=== PATIENT | female | born 1955 | race African-American/Black ===

== ENCOUNTER 2017-02-14 12:01 | Inpatient (IN) | payer MEDICARE, OTHER ==
[~2017-02-14] VITALS: Ht 165.1 cm; Wt 77.1 kg
[~2017-02-14 12:01] MED LIST: ALBUTEROL SULF8.5 GM INH; AMLODIPINE-BEN1 EAC1 PO; AMOXICILLIN500 MG ORAL; AZITHROMYCIN250 MG ORAL; CARISOPRODOL350 MG PO; GABAPENTIN600 MG PO; IBUPROFEN600 MG PO; IBUPROFEN800 MG PO; LEVAQUIN750 MG ORAL; LEVOTHYROXINE125 MCG PO; LIPITOR40 MG PO; NORCO 5-325 TA1 EACH ORAL; NORCO 5-325 TA1 EACH PO; OMEPRAZOLE40 M1 ORAL; PERCOCET 5-3251 EACH PO; PROMETHAZINE-C118 M1 ORAL; ULTRAM50 MG PO; ZANTAC150 MG ORAL
[2017-02-14 12:32] VITALS: BP 137/83
[2017-02-14] MEDS: Albuterol ud Inhalation HHN SCH ×3 (12:36→13:09)
[2017-02-14] MEDS: Ipratropium 0.02% Inh Soln 2.5ml UD HHN SCH ×3 (12:36→13:09)
[2017-02-14 12:56] LABS: BASOPHILS % (AUTO) 0.4 % (0.0-2.0); EOSINOPHILS % (AUTO) 0.1 % (0.0-3.0); MEAN CORPUSCULAR VOLUME 88 FL (80-99); MEAN PLATELET VOLUME 6.6 FL (6.5-10.1); MONOCYTES % (AUTO) 5.8 % (1.0-10.0); NEUTROPHILS % (AUTO) 76.6 % (45.0-75.0); PLATELET COUNT 295 K/UL (150-450); RED BLOOD COUNT 5.27 M/UL (4.20-5.40); RED CELL DISTRIBUTION WIDTH 12.6 % (11.6-14.8); WHITE BLOOD COUNT 8.5 K/UL (4.8-10.8)
[2017-02-14 13:02] LABS: ALBUMIN/GLOBULIN RATIO 1.2 (1.0-2.7); CALCIUM 9.2 mg/dL (8.6-10.2); CREATININE 1.2 mg/dL (0.5-0.9); GLOMERULAR FILTRATION RATE 55.6 mL/min (>60); POTASSIUM 4.2 mEQ/L (3.4-4.9); TOTAL PROTEIN 7.8 g/dL (6.6-8.7)
[2017-02-14 13:03] LABS: TROPONIN I < 0.30 ng/mL (<=0.30)
[2017-02-14 13:13] LABS: CKMB 1.8 ng/mL (< 3.8)
[2017-02-14] MEDS ORDERED: Azithromycin 500 MG in D5W 275 ML IVPB STA (13:19)
[2017-02-14 13:30] VITALS: BP 138/89
--- NOTE | 2017-02-14 13:47 | Emergency Room Report ---
History of Present Illness General Chief Complaint: General Complaint Source: Patient Present Illness HPI 61 YO F with productive cough, SOB, wheezing for 2-3 days. + COPD. Non- smoker. Denies fever/chills, chest pain. No improvement with home meds. Also c/o 1 week watery diarrhea, bilateral abd pain without nausea/vomiting. No prior abd surgery or history of diverticulitis. Allergies: Coded Allergies: No Known Allergies (Verified Allergy, Unknown, 09/05/07) Patient History Past Medical History: COPD Past Surgical History: none Pertinent Family History: none Social History: Denies: alcohol use, drug use, smoking Now: No Immunizations: UTD Reviewed Nursing Documentation: PMH: Agreed, PSxH: Agreed Nursing Documentation-PMH Past Medical History: No History, Except For Hx Cardiac Problems: Yes - bypass surgery 2009 Hx Hypertension: Yes Hx Asthma: Yes Hx COPD: Yes Hx Diabetes: No Hx Cancer: No Hx Gastrointestinal Problems: No Hx Neurological Problems: No Review of Systems All Other Systems: negative except mentioned in HPI Physical Exam Vital Signs Date Time Temp Pulse Resp B/P Pulse Ox O2 Delivery O2 Flow Rate FiO2 02/14/17 12:13 98.2 72 18 137/83 90 Room Air Sp02 EP Interpretation: reviewed, normal General Appearance: normal inspection, well appearing, no apparent distress, alert, GCS 15, non-toxic, mild distress Head: normocephalic, atraumatic Eyes: bilateral eye EOMI, bilateral eye PERRL ENT: normal ENT inspection, hearing grossly normal, normal voice Neck: normal inspection, full range of motion, supple, no bony tend Respiratory: normal inspection, lungs clear, normal breath sounds, no respiratory distress, no retraction, no wheezing, accessory muscle use, wheezing Cardiovascular #1: regular rate, rhythm, no edema Gastrointestinal: normal inspection, normal bowel sounds, non tender, soft, no guarding, no hernia Genitourinary: no CVA tenderness Musculoskeletal: normal inspection, back normal, normal range of motion, James' s Sign negative Neurologic: normal inspection, alert, oriented x3, responsive, clinical review specialist III-XII nml as tested, motor strength/tone normal, speech normal Psychiatric: normal inspection, judgement/insight normal, mood/affect normal Skin: normal inspection, normal color, no rash Medical Decision Making Diagnostic Impression: Primary Impression: OVI (acute kidney injury) Additional Impressions: COPD with acute exacerbation Abdominal pain Qualified Codes: R10.84 - Generalized abdominal pain ER Course Labs: No leuks. H&H stable. Mild OVI. Elevated BNP SOB - Likely COPD exacerbation - Improved with duonebs, solumedrol - Blood Cx pending - Empiric Azithro given for COPD Exac. No leuks, fever or PNA on CXR - elevated BNP in setting of OVI likely not indicatory of CHF Abd pain - CT with diverticulosis. Nothing acute. - Lipase and LFTs normal - Patient has not given urine yet Endorsed to Dr Rose for tele admission at 202pm EKG Diagnostic Results Rate: normal, other - atrial enlargement Rhythm: NSR ST Segments: no acute changes ASA given to the pt in ED: No Rhythm Strip Diag. Results EP Interpretation: yes Rate: 61 Rhythm: NSR, no PVC's, no ectopy Chest X-Ray Diagnostic Results EP Interpretation: Yes Findings: no consolidation, no effusion, no pneumothorax, other - clips seen, cardiomegaly Number of Views: 1 Last Vital Signs Date Time Temp Pulse Resp B/P Pulse Ox O2 Delivery O2 Flow Rate FiO2 02/14/17 13:09 72 20 100 Room Air 02/14/17 12:32 137/83 02/14/17 12:13 98.2 Status: improved Disposition: ADMITTED INPATIENT Condition: Serious Referrals: [facility] [place] RISHI CELAYA (PCP) JOSHUA GRANDA M.D. Feb 14, 2017 13:47
[2017-02-14 15:04] VITALS: BP 162/80
[2017-02-14] MEDS ORDERED: Azithromycin Inj IV ONE (15:09)
--- NOTE | 2017-02-14 15:29 | Diagnostic Imaging Report ---
Indication: Dyspnea Comparison: 01/03/16 A single view chest radiograph was obtained. Findings: Central vessels are prominent but there is no overt CHF. Cardiomegaly is present with mild enlargement of the aorta. Sternotomy noted. The bones are osteopenic. Impression: No acute disease
[2017-02-14] MEDS ORDERED: SOMA350 MG PO (15:39)
[2017-02-14] MEDS ORDERED: ASPIRIN EC81 MG ORAL (15:43)
[2017-02-14] MEDS ORDERED: NORCO 10-325 T1 EACH ORAL (15:45)
[2017-02-14] MEDS ORDERED: OMEPRAZOLE20 M2 PO (15:48)
[2017-02-14] MEDS ORDERED: COMBIVENT RESPIM4 GM IH (15:48)
[2017-02-14] MEDS ORDERED: LORazepam Inj 2mg/ml 1ml IV PRN (16:00)
[2017-02-14] MEDS ORDERED: Ketorolac 30mg Inj IV PRN (16:00)
[2017-02-14] MEDS ORDERED: Nitroglycerin Subl 0.4mg tab (Bottle Of 25) SL PRN (16:00)
[2017-02-14] MEDS: Morphine Sulfate 2mg/ml Inj IVP PRN (17:07)
[2017-02-14 17:15] VITALS: BP 125/61
[2017-02-14] MEDS: Piperacillin/Tazobactam 3.375 GM in D5W 110 ML IVPB SCH (18:42)
[2017-02-14] MEDS: Solu-MEDROL 125mg Inj IV SCH (18:43)
[2017-02-14] MEDS: Theophylline ER 100mg ORAL SCH (20:51)
[2017-02-14] MEDS: NovoLOG Insulin Flexpen SUBQ SCH (21:00)
[2017-02-14] MEDS: Heparin 5000 units/ml inj SUBQ SCH (21:00)
--- NOTE | 2017-02-14 22:51 | History and Physical ---
History of Present Illness General Date patient seen: Feb 14, 2017 Reason for Hospitalization: General Complaint Present Illness HPI 61 year old female hx of smoking, htn, presented to [facility] [place] with productive cough, SOB, wheezing for 2-3 days. Denies fever/chills, chest pain. Also c/o 1 week watery diarrhea, bilateral abd pain without nausea/vomiting. CT chest in ER was negative. Pt is admitted for further work up. Allergies: Coded Allergies: No Known Allergies (Verified Allergy, Unknown, 09/05/07) Medication History Scheduled Amlodipine Besylate/Benazepril 10-40 Mg (Amlodipine-Benazepril 10-40 Mg), 1 CAP PO DAILY, (Reported) Aspirin Ec* (Aspirin Ec*), 81 MG ORAL DAILY, (Reported) Atorvastatin Calcium* (Lipitor*), 40 MG PO DAILY, (Reported) Gabapentin* (Gabapentin*), 600 MG PO TID, (Reported) Levothyroxine Sodium* (Levothyroxine Sodium*), 125 MCG PO DAILY, (Reported) Scheduled PRN Albuterol Sulfate* (Albuterol Sulfate Mdi*), 2 PUFF INH Q4H PRN for For Cough Carisoprodol* (Soma*), 350 MG PO TID PRN for PRN, (Reported) Hydrocodone Bit/Acetaminophen 10-325* (Henderson 10-325*), 1 TAB ORAL Q6H PRN for For Pain, (Reported) Ipratropium/Albuterol Sulfate (Combivent Respimat Inhal Bridger), 4 GM IH BID PRN for Shortness of Breath, (Reported) Omeprazole (Omeprazole), 20 MG PO DAILY PRN for GERD, (Reported) Discontinued Medications Codeine/Promethazine Hcl* (Promethazine-Codeine Syrup*), 5 ML ORAL Q4H PRN for For Cough Discontinued Reason: Therapy completed Levofloxacin* (Levaquin*), 750 MG ORAL DAILY Discontinued Reason: Therapy completed Patient History Healthcare decision maker Resuscitation status Full Code Advanced Directive on File Past Medical/Surgical History Past Medical/Surgical History: (1) COPD with acute exacerbation Review of Systems All Other Systems: negative except mentioned in HPI Physical Exam General Appearance: WD/WN Lines, tubes and drains: peripheral, central line HEENT: normocephalic, atraumatic Neck: non-tender, normal alignment Respiratory/Chest: chest wall non-tender, lungs clear Cardiovascular/Chest: normal peripheral pulses, normal rate Abdomen: normal bowel sounds Genitourinary/Rectal: normal genital exam, normal prostate exam Extremities: normal range of motion Skin Exam: normal pigmentation Last 24 Hour Vital Signs Date Time Temp Pulse Resp B/P Pulse Ox O2 Delivery O2 Flow Rate FiO2 02/14/17 20:00 73 02/14/17 17:15 97.7 76 18 125/61 Nasal Cannula 2.0 96 02/14/17 15:04 98.2 104 27 162/80 100 Room Air 02/14/17 13:30 98.0 67 19 138/89 100 Room Air 02/14/17 13:09 72 20 100 Room Air 02/14/17 12:34 63 22 Room Air 02/14/17 12:34 63 22 100 Room Air 02/14/17 12:32 18 137/83 90 Room Air 02/14/17 12:13 98.2 72 18 137/83 90 Room Air Laboratory Tests Test 02/14/17 12:30 White Blood Count 8.5 K/UL (4.8-10.8) Red Blood Count 5.27 M/UL (4.20-5.40) Hemoglobin 15.3 G/DL (12.0-16.0) Hematocrit 46.3 % (37.0-47.0) Mean Corpuscular Volume 88 FL (80-99) Mean Corpuscular Hemoglobin 29.0 PG (27.0-31.0) Mean Corpuscular Hemoglobin Concent 33.0 G/DL (32.0-36.0) Red Cell Distribution Width 12.6 % (11.6-14.8) Platelet Count 295 K/UL (150-450) Mean Platelet Volume 6.6 FL (6.5-10.1) Neutrophils (%) (Auto) 76.6 % (45.0-75.0) H Lymphocytes (%) (Auto) 17.0 % (20.0-45.0) L Monocytes (%) (Auto) 5.8 % (1.0-10.0) Eosinophils (%) (Auto) 0.1 % (0.0-3.0) Basophils (%) (Auto) 0.4 % (0.0-2.0) Sodium Level 131 mEQ/L (135-145) L Potassium Level 4.2 mEQ/L (3.4-4.9) Chloride Level 87 mEQ/L (98-107) L Carbon Dioxide Level 26 mEQ/L (20-30) Anion Gap 18 (5-15) H Blood Urea Nitrogen 6 mg/dL (7-23) L Creatinine 1.2 mg/dL (0.5-0.9) H Estimat Glomerular Filtration Rate 55.6 mL/min (>60) Glucose Level 102 mg/dL (74-106) Calcium Level 9.2 mg/dL (8.6-10.2) Total Bilirubin 0.4 mg/dL (0.0-1.2) Aspartate Amino Transf (AST/SGOT) 16 U/L (5-40) Alanine Aminotransferase (ALT/SGPT) 8 U/L (3-33) Alkaline Phosphatase 75 U/L (35-104) Total Creatine Kinase 79 U/L (26-140) Creatine Kinase MB 1.8 ng/mL (< 3.8) Creatine Kinase MB Relative Index 2.2 Troponin I < 0.30 ng/mL (<=0.30) Pro-B-Type Natriuretic Peptide 2046 pg/mL (0-125) H Total Protein 7.8 g/dL (6.6-8.7) Albumin 4.4 g/dL (3.5-5.2) Globulin 3.4 g/dL Albumin/Globulin Ratio 1.2 (1.0-2.7) Height (Feet): 5 Height (Inches): 5.00 Weight (Pounds): 170 Medications Current Medications Medications (Trade) Dose Ordered Sig/Jose Route PRN Reason Start Time Stop Time Status Last Admin Dose Admin Albuterol/ Ipratropium (DuoNeb 0.5-3(2.5)mg/3ml) 3 ml EVERY 4 HOURS PRN HHN dyspnea 02/14/17 16:00 02/19/17 15:59 Atorvastatin Calcium (Lipitor) 40 mg QHS ORAL 02/14/17 21:00 03/16/17 20:59 02/14/17 20:51 Dextrose (Dextrose 50%) STAT PRN IV Hypoglycemia 02/14/17 16:00 03/16/17 15:59 Gabapentin (Neurontin) 600 mg TID ORAL 02/14/17 18:00 03/16/17 17:59 02/14/17 18:43 Heparin Sodium (Porcine) (Heparin 5000 units/ml) 5,000 units EVERY 12 HOURS SUBQ 02/14/17 21:00 03/16/17 20:59 02/14/17 21:00 Insulin Aspart (NovoLOG) BEFORE MEALS AND HS SUBQ 02/14/17 21:00 03/16/17 20:59 Ketorolac Tromethamine (Toradol 30mg) 30 mg EVERY 8 HOURS PRN IV moderate pain 4-6 02/14/17 16:00 02/19/17 15:59 Levothyroxine Sodium (Synthroid) 125 mcg DAILY@0630 ORAL 02/15/17 06:30 03/17/17 06:29 Lorazepam (Ativan 2mg/ml 1ml) 0.5 mg Q4H PRN IV For Anxiety 02/14/17 16:00 02/21/17 15:59 Methylprednisolone Sodium Succinate (Solu-MEDROL) 60 mg EVERY 6 HOURS IV 02/14/17 18:00 03/16/17 17:59 02/14/17 18:43 Morphine Sulfate (Morphine Sulfate) 2 mg EVERY 4 HOURS PRN IVP severe pain 7-10 02/14/17 16:00 02/21/17 15:59 02/14/17 17:07 Nitroglycerin (Ntg) 0.4 mg Q5M X 3 DOSES PRN SL Prn Chest Pain 02/14/17 16:00 03/16/17 15:59 Ondansetron HCl (Zofran) 4 mg Q6H PRN IVP Nausea & Vomiting 02/14/17 16:00 03/16/17 15:59 Pantoprazole (Protonix) 40 mg DAILY IV 02/15/17 09:00 03/17/17 08:59 Piperacillin Sod/ Tazobactam Sod/ Dextrose (Zosyn/D5W) 110 ml @ 27.5 mls/hr EVERY 8 HOURS IVPB 02/14/17 19:00 02/21/17 18:59 02/14/17 18:42 Promethazine HCl/ Codeine (Phenergan with Codeine) 5 ml EVERY 6 HOURS PRN ORAL cough 02/14/17 16:00 03/16/17 15:59 Temazepam (Restoril) 15 mg HSPRN PRN ORAL Insomnia 02/14/17 16:00 02/21/17 15:59 Theophylline 100 mg 100 mg EVERY 12 HOURS ORAL 02/14/17 21:00 03/16/17 20:59 02/14/17 20:51 Assessment/Plan Problem List: (1) COPD with acute exacerbation ICD Codes: J44.1 - Chronic obstructive pulmonary disease with (acute) exacerbation SNOMED: 489664203 (2) Bronchitis ICD Codes: J40 - Bronchitis, not specified as acute or chronic SNOMED: 76103799 (3) Abdominal pain ICD Codes: R10.9 - Unspecified abdominal pain SNOMED: 56778396 Qualifiers: Qualified Codes: R10.84 - Generalized abdominal pain Assessment/Plan respiratory treatment IV steroids check sputum taper steroids once less short of breath continue antibiotics MAIRA JAY Feb 14, 2017 22:51
[2017-02-15] VITALS: BP 133/104
[2017-02-15] MEDS: Solu-MEDROL 125mg Inj IV SCH ×4 (00:12→17:44)
[2017-02-15] MEDS: Morphine Sulfate 2mg/ml Inj IVP PRN ×4 (00:13→14:46)
[2017-02-15] MEDS: DuoNeb 0.5-3(2.5)mg/3ml neb HHN PRN ×2 (01:23→10:52)
[2017-02-15 04:23] VITALS: BP 138/75
[2017-02-15] MEDS: Piperacillin/Tazobactam 3.375 GM in D5W 110 ML IVPB SCH ×3 (05:38→21:57)
[2017-02-15] MEDS: Levothyroxine 125mcg tab ORAL SCH (06:51)
[2017-02-15] MEDS: NovoLOG Insulin Flexpen SUBQ SCH ×4 (06:52→20:51)
[2017-02-15] MEDS: Promethazine/Codeine 5ml UD ORAL PRN ×2 (06:54→14:47)
[2017-02-15 07:59] VITALS: BP 137/88
--- NOTE | 2017-02-15 08:27 | Diagnostic Imaging Report ---
Indication: Abdominal pain Technique: Continuous helical transaxial imaging of the abdomen and pelvis was obtained from the lung bases to the pubic symphysis during intravenous contrast administration. Coronal 2-D reformats were also obtained. Study obtained in a Siemens sensation [address] Total Dose length Product (DLP): [address] Dose Index Volume (CTDIvol): 17 mGy Comparison: 09/06/2007 Findings: Mild, focal reticular densities are demonstrated at the periphery of the right lung base nonspecific. Hiatal hernia is present. Aorta is moderately calcified. There are diverticula within the colon. Gallbladder is unremarkable. The adrenal glands, pancreas and kidneys are unremarkable. There is no hydronephrosis. Liver and spleen unremarkable. Appendix not definitely seen but there are no secondary signs of appendicitis. Fusiform aneurysms of the common iliac arteries are demonstrated bilaterally measuring 3.3 CM on the left and about 2.6 CM on the right. Moderate wall adherent thrombus noted. There is an old right pubis fracture. There is anterolisthesis grade 1 L4-5 with narrowed disc. Impression: No acute findings appreciated. Fusiform aneurysms involving the common iliac arteries bilaterally. Moderate atherosclerotic vascular disease Old right pubis fracture. Grade 1 spondylolisthesis L4 on 5 with degenerative disc disease noted. Reticular densities at the right lung base nonspecific Hiatal hernia Diverticulosis of the colon The CT scanner at [facility] is accredited by the [employer] and the scans are performed using protocols designed to limit radiation exposure to as low as reasonably achievable to attain images of sufficient resolution adequate for diagnostic evaluation.
[2017-02-15] MEDS: Theophylline ER 100mg ORAL SCH ×2 (09:17→20:49)
[2017-02-15] MEDS: Pantoprazole Inj IV SCH (09:17)
[2017-02-15] MEDS: Heparin 5000 units/ml inj SUBQ SCH ×2 (09:18→20:51)
[2017-02-15 11:30] VITALS: BP 150/91
--- NOTE | 2017-02-15 15:36 | Pulmonology Progress Note ---
Assessment/Plan Problems: (1) COPD with acute exacerbation (2) Bronchitis (3) Abdominal pain Assessment/Plan improving respiratory treatment titrate fio2 antitussives abdominal pain better Subjective ROS Limited/Unobtainable: No Interval Events: still coughing Allergies: Coded Allergies: No Known Allergies (Verified Allergy, Unknown, 09/05/07) Objective Last 24 Hour Vital Signs Date Time Temp Pulse Resp B/P Pulse Ox O2 Delivery O2 Flow Rate FiO2 02/15/17 12:00 67 02/15/17 11:30 98.6 81 18 150/91 94 Nasal Cannula 2.0 02/15/17 11:30 84 20 97 Nasal Cannula 2.0 02/15/17 11:26 84 18 96 Nasal Cannula 2.0 02/15/17 09:55 75 20 100 Nasal Cannula 2.0 28 02/15/17 09:45 74 18 99 Nasal Cannula 2.0 02/15/17 08:00 82 02/15/17 07:59 98.2 64 18 137/88 93 Nasal Cannula 2.0 02/15/17 07:26 77 18 Nasal Cannula 2.0 02/15/17 07:24 Nasal Cannula 2.0 02/15/17 07:23 77 18 97 Nasal Cannula 2.0 02/15/17 06:05 97.8 02/15/17 04:23 97.8 79 18 138/75 97 Nasal Cannula 02/15/17 04:00 81 02/15/17 03:17 80 21 100 Nasal Cannula 2.0 28 02/15/17 03:17 80 21 100 Nasal Cannula 2.0 28 02/15/17 02:00 80 21 100 Nasal Cannula 2.0 28 02/15/17 01:25 80 21 100 Nasal Cannula 2.0 28 02/15/17 00:00 76 02/15/17 00:00 97.9 91 20 133/104 95 Nasal Cannula 2.0 28 02/14/17 20:00 73 02/14/17 19:00 59 21 Nasal Cannula 2.0 28 02/14/17 17:15 97.7 76 18 125/61 Nasal Cannula 2.0 96 Intake and Output 02/14/17 02/15/17 19:00 07:00 Intake Total 0 ml Balance 0 ml Intake Oral 0 ml # Voids 1 # Bowel Movements 2 Objective General Appearance: WD/WN Lines, tubes and drains: peripheral, HEENT: normocephalic, atraumatic Neck: non-tender, normal alignment Respiratory/Chest: chest wall non-tender, rhonchi Cardiovascular/Chest: normal peripheral pulses, normal rate Abdomen: normal bowel sounds Genitourinary/Rectal: normal genital exam, normal prostate exam Extremities: normal range of motion Skin Exam: normal pigmentation Current Medications Medications (Trade) Dose Ordered Sig/Jose Route PRN Reason Start Time Stop Time Status Last Admin Dose Admin Albuterol/ Ipratropium (DuoNeb 0.5-3(2.5)mg/3ml) 3 ml EVERY 4 HOURS PRN HHN dyspnea 02/14/17 16:00 02/19/17 15:59 02/15/17 10:52 Atorvastatin Calcium (Lipitor) 40 mg QHS ORAL 02/14/17 21:00 03/16/17 20:59 02/14/17 20:51 Dextrose (Dextrose 50%) STAT PRN IV Hypoglycemia 02/14/17 16:00 03/16/17 15:59 Gabapentin (Neurontin) 600 mg TID ORAL 02/14/17 18:00 03/16/17 17:59 02/15/17 12:12 Heparin Sodium (Porcine) (Heparin 5000 units/ml) 5,000 units EVERY 12 HOURS SUBQ 02/14/17 21:00 03/16/17 20:59 02/15/17 09:18 Insulin Aspart (NovoLOG) BEFORE MEALS AND HS SUBQ 02/14/17 21:00 03/16/17 20:59 02/15/17 12:13 Ketorolac Tromethamine (Toradol 30mg) 30 mg EVERY 8 HOURS PRN IV moderate pain 4-6 02/14/17 16:00 02/19/17 15:59 Levothyroxine Sodium (Synthroid) 125 mcg DAILY@0630 ORAL 02/15/17 06:30 03/17/17 06:29 02/15/17 06:51 Lorazepam (Ativan 2mg/ml 1ml) 0.5 mg Q4H PRN IV For Anxiety 02/14/17 16:00 02/21/17 15:59 Methylprednisolone Sodium Succinate (Solu-MEDROL) 60 mg EVERY 6 HOURS IV 02/14/17 18:00 03/16/17 17:59 02/15/17 12:12 Morphine Sulfate (Morphine Sulfate) 2 mg EVERY 4 HOURS PRN IVP severe pain 7-10 02/14/17 16:00 02/21/17 15:59 02/15/17 14:46 Nitroglycerin (Ntg) 0.4 mg Q5M X 3 DOSES PRN SL Prn Chest Pain 02/14/17 16:00 03/16/17 15:59 Ondansetron HCl (Zofran) 4 mg Q6H PRN IVP Nausea & Vomiting 02/14/17 16:00 03/16/17 15:59 Pantoprazole (Protonix) 40 mg DAILY IV 02/15/17 09:00 03/17/17 08:59 02/15/17 09:17 Piperacillin Sod/ Tazobactam Sod/ Dextrose (Zosyn/D5W) 110 ml @ 27.5 mls/hr EVERY 8 HOURS IVPB 02/14/17 19:00 02/21/17 18:59 02/15/17 13:18 Promethazine HCl/ Codeine (Phenergan with Codeine) 5 ml EVERY 6 HOURS PRN ORAL cough 02/14/17 16:00 03/16/17 15:59 02/15/17 14:47 Temazepam (Restoril) 15 mg HSPRN PRN ORAL Insomnia 02/14/17 16:00 02/21/17 15:59 Theophylline 100 mg 100 mg EVERY 12 HOURS ORAL 02/14/17 21:00 03/16/17 20:59 02/15/17 09:17 MAIRA JAY Feb 15, 2017 15:36
[2017-02-15 16:00] VITALS: BP 135/77
--- NOTE | 2017-02-15 16:40 | Cardiology Progress Note ---
Assessment/Plan Assessment/Plan copd abn ekg cad hs htn hx contienu copd rxn repeat enxzyen ekg echo statin acotrin [id number] Objective Last 24 Hour Vital Signs Date Time Temp Pulse Resp B/P Pulse Ox O2 Delivery O2 Flow Rate FiO2 02/15/17 12:00 67 02/15/17 11:30 98.6 81 18 150/91 94 Nasal Cannula 2.0 02/15/17 11:30 84 20 97 Nasal Cannula 2.0 02/15/17 11:26 84 18 96 Nasal Cannula 2.0 02/15/17 09:55 75 20 100 Nasal Cannula 2.0 28 02/15/17 09:45 74 18 99 Nasal Cannula 2.0 02/15/17 08:00 82 02/15/17 07:59 98.2 64 18 137/88 93 Nasal Cannula 2.0 02/15/17 07:26 77 18 Nasal Cannula 2.0 02/15/17 07:24 Nasal Cannula 2.0 02/15/17 07:23 77 18 97 Nasal Cannula 2.0 02/15/17 06:05 97.8 02/15/17 04:23 97.8 79 18 138/75 97 Nasal Cannula 02/15/17 04:00 81 02/15/17 03:17 80 21 100 Nasal Cannula 2.0 28 02/15/17 03:17 80 21 100 Nasal Cannula 2.0 28 02/15/17 02:00 80 21 100 Nasal Cannula 2.0 28 02/15/17 01:25 80 21 100 Nasal Cannula 2.0 28 02/15/17 00:00 76 02/15/17 00:00 97.9 91 20 133/104 95 Nasal Cannula 2.0 28 02/14/17 20:00 73 02/14/17 19:00 59 21 Nasal Cannula 2.0 28 02/14/17 17:15 97.7 76 18 125/61 Nasal Cannula 2.0 96 Intake and Output 02/14/17 02/15/17 19:00 07:00 Intake Total 0 ml Balance 0 ml Intake Oral 0 ml # Voids 1 # Bowel Movements 2 CARLY CLANCY Feb 15, 2017 16:40
[2017-02-15] MEDS: Aspirin EC 81mg tab ORAL SCH (17:42)
[2017-02-15] MEDS ORDERED: NS 275ml ONE (18:20)
[2017-02-15 18:28] LABS: TROPONIN I < 0.30 ng/mL (<=0.30)
[2017-02-15 18:38] LABS: THYROID STIMULATING HORMONE 0.01 uIU/mL (0.300-4.500)
[2017-02-15 20:00] VITALS: BP 132/71
--- NOTE | 2017-02-15 23:48 | Consultation ---
DATE OF CONSULTATION: 02/15/2017 CARDIOLOGY CONSULTATION CONSULTING PHYSICIAN: Brian Aguayo M.D. REFERRING PHYSICIAN: Amol Rose M.D. REASON FOR REFERRAL: Shortness of breath. HISTORY OF PRESENT ILLNESS: This is a middle-aged female, who is admitted to the hospital because of a dry cough, congestion, and shortness of breath. No fevers. No chills. Wheezing, two-pillow orthopnea, episodes of PND, pain in the chest when she takes a deep breath or coughs, and pain in the flank when she coughs. Occasional palpitation. Occasional dizziness or lightheadedness. PAST MEDICAL HISTORY: Positive for prediabetes, although she has been given insulin in this hospital, high blood pressure, high cholesterol, history of myocardial infarction in 2003 when she had a bypass surgery x3, history of renal insufficiency early stage, chronic obstructive pulmonary disease, anemia, and arthritis. ALLERGIES: She has no known drug allergies. SOCIAL HISTORY: Smoking, positive up to yesterday. Alcohol, no. Drugs, no. REVIEW OF SYSTEMS: Gastrointestinal: She had diarrhea until today. Genitourinary: , otherwise negative. Constitutional: Negative. Pulmonary: As mentioned in the history of present illness. Cardiac: PHYSICAL EXAMINATION: GENERAL: Shows to be obese middle-aged female, in no apparent respiratory distress. HEENT: Unremarkable. She has intermittent coughing. LUNGS: There are inspiratory and expiratory wheezes. CARDIAC: Regular rhythm. No RV lift, heaves, or thrills noted. ABDOMEN: Obese. Soft and nontender. Positive bowel sounds. EXTREMITIES: There is no edema. NEUROLOGICAL: She is awake, alert, responsive, and in no apparent respiratory distress. LABORATORY VALUES: Her white count is 8.5, hemoglobin 15.3, and platelet count 295,000. Sodium is 131, potassium 4.2, chloride 87, bicarbonate 18, BUN 6, creatinine 1.2, and glucose of 102. ProBNP of 2000. Troponin, first set is negative. X-ray of the chest was performed yesterday and showed no acute disease. A CT scan of the abdomen and pelvis was performed, basically shows a fusiform aneurysm involving the common iliac arteries bilaterally, moderate thoracic vascular disease, old right pubic ramus fracture, reticular density in the right lung base, nonspecific, hiatal hernia, and diverticulosis of the colon. The patient's electrocardiogram shows basically sinus rhythm with T-wave inversions in V1, V2, and V3, and nonspecific changes in lead aVF. ASSESSMENT: 1. Probable chronic obstructive pulmonary disease with exacerbation. 2. Abnormal electrocardiogram, unknown chronicity. 3. Coronary artery disease status post coronary artery bypass grafting. 4. 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 5. Obesity. 6. Hyperlipidemia. PLAN: Dr. Rose, this patient was seen in cardiac consultation. The patient's major issue is likely the COPD exacerbation. Changes on CT scan in the right lung base is noted and felt to be nonspecific. She does have wheezing and evidence of chronic obstructive pulmonary disease exacerbation. Her EKG is abnormal, chronicity of which is not known. I would recommend repeating cardiac enzymes and an echocardiogram evaluation for LV systolic function. I will continue treatment for underlying chronic obstructive pulmonary disease exacerbation as well as possible either pneumonia or underlying viral infection. Further recommendations will depend on results of the above testing. Thank you for allowing me to participate in the care of this patient. Brian Aguayo M.D. DR: PATRICIA JOB#: [id number] CC:
[2017-02-16] VITALS: BP 147/77
[2017-02-16] MEDS: Solu-MEDROL 125mg Inj IV SCH ×4 (00:39→21:06)
[2017-02-16 02:00] LABS: TROPONIN I < 0.30 ng/mL (<=0.30)
[2017-02-16] MEDS: Promethazine/Codeine 5ml UD ORAL PRN (03:56)
[2017-02-16 04:00] VITALS: BP 126/77
[2017-02-16] MEDS: Morphine Sulfate 2mg/ml Inj IVP PRN ×3 (05:02→16:07)
[2017-02-16] MEDS: Levothyroxine 125mcg tab ORAL SCH (06:08)
[2017-02-16] MEDS: Piperacillin/Tazobactam 3.375 GM in D5W 110 ML IVPB SCH ×3 (06:09→21:07)
[2017-02-16] MEDS: NovoLOG Insulin Flexpen SUBQ SCH ×4 (06:10→21:13)
[2017-02-16 07:02] LABS: APPEARANCE,URINE CLEAR; KETONES,URINE NEGATIVE (NEGATIVE); LEUKOCYTE ESTERASE ,URINE 1+ (NEGATIVE); NITRITE,URINE NEGATIVE (NEGATIVE); PH,URINE 5 (4.5-8.0); PROTEIN,URINE 2+ (NEGATIVE); UROBILINOGEN,URINE NORMAL MG/DL (0.0-1.0)
[2017-02-16 07:13] LABS: RBC,URINE 0-2 /HPF (0 - 2); SQUAMOUS EPITHELIAL CELL,UR FEW /LPF (NONE/OCC)
[2017-02-16 07:14] LABS: BACTERIA,URINE FEW /HPF
[2017-02-16 08:22] VITALS: BP 151/87
[2017-02-16] MEDS: Aspirin EC 81mg tab ORAL SCH (09:06)
[2017-02-16] MEDS: Theophylline ER 100mg ORAL SCH ×2 (09:06→21:06)
[2017-02-16] MEDS: Heparin 5000 units/ml inj SUBQ SCH ×2 (09:09→21:15)
[2017-02-16] MEDS: Pantoprazole Inj IV SCH (09:09)
[2017-02-16 10:40] LABS: CORTISOL LC 18.1 ug/dL (.)
[2017-02-16 11:24] VITALS: BP 137/81
[2017-02-16 11:43] LABS: MEAN CORPUSCULAR HEMOGLOBIN 28.5 PG (27.0-31.0); MEAN CORPUSCULAR HGB CONC 32.5 G/DL (32.0-36.0); MEAN CORPUSCULAR VOLUME 88 FL (80-99); MEAN PLATELET VOLUME 6.8 FL (6.5-10.1); PLATELET COUNT 327 K/UL (150-450); RED BLOOD COUNT 4.88 M/UL (4.20-5.40); RED CELL DISTRIBUTION WIDTH 12.6 % (11.6-14.8); WHITE BLOOD COUNT 10.2 K/UL (4.8-10.8)
[2017-02-16] MEDS: Loperamide 2mg cap ORAL PRN ×2 (12:00→21:07)
[2017-02-16 12:14] LABS: ALBUMIN/GLOBULIN RATIO 1.6 (1.0-2.7); CALCIUM 8.4 mg/dL (8.6-10.2); CREATININE 2.1 mg/dL (0.5-0.9); GLOMERULAR FILTRATION RATE 29.1 mL/min (>60); MAGNESIUM 2.2 mg/dL (1.7-2.5); PHOSPHORUS 4.5 mg/dL (2.5-4.8); POTASSIUM 4.7 mEQ/L (3.4-4.9); TOTAL PROTEIN 6.4 g/dL (6.6-8.7); TROPONIN I < 0.30 ng/mL (<=0.30)
[2017-02-16 12:49] LABS: BAND NEUTROPHILS % (MANUAL) 1 % (0-8); LYMPHOCYTES % (MANUAL) 7 % (20-45); NEUTROPHILS % (MANUAL) 88 % (45-75); TOTAL CELLS COUNTED 100
[2017-02-16 12:50] LABS: PLATELET MORPHOLOGY NORMAL
[2017-02-16 12:51] LABS: BASOPHILS % (MANUAL) 0 % (0-2); EOSINOPHILS % (MANUAL) 0 % (0-3); PLATELET ESTIMATE ADEQUATE
[2017-02-16 16:00] VITALS: BP 139/80
--- NOTE | 2017-02-16 16:04 | Pulmonology Progress Note ---
Assessment/Plan Problems: (1) COPD with acute exacerbation (2) Bronchitis (3) Abdominal pain Assessment/Plan improving slowly taper steroids sputum negative respiratory treatment titrate fio2 antitussives abdominal pain better/ GI consult Subjective ROS Limited/Unobtainable: No Interval Events: comfortable, still dyspnic, Allergies: Coded Allergies: No Known Allergies (Verified Allergy, Unknown, 09/05/07) Objective Last 24 Hour Vital Signs Date Time Temp Pulse Resp B/P Pulse Ox O2 Delivery O2 Flow Rate FiO2 02/16/17 15:05 Nasal Cannula 02/16/17 15:05 Nasal Cannula 2.0 28 02/16/17 12:00 68 02/16/17 11:24 98.1 69 20 137/81 94 Nasal Cannula 2.0 02/16/17 11:09 Nasal Cannula 2.0 28 02/16/17 11:09 Nasal Cannula 02/16/17 08:22 98.2 63 20 151/87 94 Nasal Cannula 2.0 02/16/17 08:00 69 02/16/17 07:11 66 19 Nasal Cannula 2.0 28 02/16/17 07:11 66 18 98 Nasal Cannula 2.0 28 02/16/17 07:11 Nasal Cannula 02/16/17 04:00 60 02/16/17 04:00 98.1 64 20 126/77 94 Room Air 02/16/17 03:13 Nasal Cannula 02/16/17 03:13 Nasal Cannula 2.0 28 02/16/17 00:00 97.3 77 20 147/77 98 Room Air 02/15/17 22:45 Nasal Cannula 02/15/17 22:44 Nasal Cannula 2.0 28 02/15/17 20:00 97.9 84 18 132/71 Nasal Cannula 2.0 97 02/15/17 20:00 82 02/15/17 19:59 Nasal Cannula 02/15/17 19:58 70 18 99 Nasal Cannula 2.0 28 02/15/17 19:57 70 18 Nasal Cannula 2.0 28 Intake and Output 02/15/17 02/16/17 19:00 07:00 Intake Total 772.5 ml 82.5 ml Output Total 350 ml Balance 772.5 ml -267.5 ml Intake Oral 580 ml IV Total 192.5 ml 82.5 ml Output Urine Total 350 ml # Voids 1 # Bowel Movements 3 1 Objective General Appearance: WD/WN Lines, tubes and drains: peripheral, HEENT: normocephalic, atraumatic Neck: non-tender, normal alignment Respiratory/Chest: chest wall non-tender, rhonchi Cardiovascular/Chest: normal peripheral pulses, normal rate Abdomen: normal bowel sounds Genitourinary/Rectal: normal genital exam, normal prostate exam Extremities: normal range of motion Skin Exam: normal pigmentation Microbiology Date/Time Source Procedure Growth Status 02/15/17 01:00 Sputum Gram Stain - Final Resulted 02/15/17 01:00 Sputum Sputum Culture - Preliminary NORMAL MNIAL PRESENT Resulted 02/15/17 20:16 Stool Clostridium difficile Toxin Assay - Final Complete Laboratory Tests 02/15/17 17:50: Plasma/Serum Osmolality [Pending], Uric Acid 8.0H, Troponin I < 0.30, Thyroid Stimulating Hormone (TSH) 0.010L, Free Thyroxine 2.01H, Cortisol 18.1 02/16/17 00:00: Urine Color Yellow, Urine Appearance Clear, Urine pH 5, Urine Specific [place] 1.010, Urine Protein 2+H, Urine Glucose (UA) Negative, Urine Ketones Negative, Urine Occult Blood Negative, Urine Nitrite Negative, Urine Bilirubin Negative, Urine Urobilinogen Normal, Urine Leukocyte Esterase 1+H, Urine RBC 0-2, Urine WBC 2-4, Urine Squamous Epithelial Cells Few, Urine Bacteria Few, Urine Osmolality [Pending], Urine Random Sodium 15 02/16/17 00:39: Troponin I < 0.30 02/16/17 10:59: Troponin I < 0.30, White Blood Count 10.2, Red Blood Count 4.88, Hemoglobin 13.9 , Hematocrit 42.8, Mean Corpuscular Volume 88, Mean Corpuscular Hemoglobin 28.5 , Mean Corpuscular Hemoglobin Concent 32.5, Red Cell Distribution Width 12.6, Platelet Count 327, Mean Platelet Volume 6.8, Neutrophils (%) (Auto) , Lymphocytes (%) (Auto) , Monocytes (%) (Auto) , Eosinophils (%) (Auto) , Basophils (%) (Auto) , Differential Total Cells Counted 100, Neutrophils % ( Manual) 88H, Lymphocytes % (Manual) 7L, Monocytes % (Manual) 4, Eosinophils % ( Manual) 0, Basophils % (Manual) 0, Band Neutrophils 1, Platelet Estimate Adequate, Platelet Morphology Normal, Red Blood Cell Morphology Normal, Sodium Level 136, Potassium Level 4.7, Chloride Level 93L, Carbon Dioxide Level 23, Anion Gap 20H, Blood Urea Nitrogen 27H, Creatinine 2.1H, Estimat Glomerular Filtration Rate 29.1, Glucose Level 133H, Calcium Level 8.4L, Phosphorus Level 4.5, Magnesium Level 2.2, Total Bilirubin 0.3, Aspartate Amino Transf (AST/SGOT ) 11, Alanine Aminotransferase (ALT/SGPT) 7, Alkaline Phosphatase 59, Total Protein 6.4L, Albumin 4.0, Globulin 2.4, Albumin/Globulin Ratio 1.6 Current Medications Medications (Trade) Dose Ordered Sig/Jose Route PRN Reason Start Time Stop Time Status Last Admin Dose Admin Albuterol/ Ipratropium (DuoNeb 0.5-3(2.5)mg/3ml) 3 ml EVERY 4 HOURS PRN HHN dyspnea 02/14/17 16:00 02/19/17 15:59 02/15/17 10:52 Aspirin (Ecotrin) 81 mg DAILY ORAL 02/15/17 17:00 03/17/17 16:59 02/16/17 09:06 Atorvastatin Calcium (Lipitor) 40 mg QHS ORAL 02/14/17 21:00 03/16/17 20:59 02/15/17 20:49 Dextrose (Dextrose 50%) STAT PRN IV Hypoglycemia 02/14/17 16:00 03/16/17 15:59 Gabapentin (Neurontin) 600 mg TID ORAL 02/14/17 18:00 03/16/17 17:59 02/16/17 13:40 Heparin Sodium (Porcine) (Heparin 5000 units/ml) 5,000 units EVERY 12 HOURS SUBQ 02/14/17 21:00 03/16/17 20:59 02/16/17 09:09 Insulin Aspart (NovoLOG) BEFORE MEALS AND HS SUBQ 02/14/17 21:00 03/16/17 20:59 02/16/17 12:01 Ketorolac Tromethamine (Toradol 30mg) 30 mg EVERY 8 HOURS PRN IV moderate pain 4-6 02/14/17 16:00 02/19/17 15:59 02/15/17 20:35 Levothyroxine Sodium (Synthroid) 125 mcg DAILY@0630 ORAL 02/15/17 06:30 03/17/17 06:29 02/16/17 06:08 Loperamide HCl (Imodium) 2 mg Q4H PRN ORAL Diarrhea 02/16/17 11:00 03/18/17 10:59 02/16/17 12:00 Lorazepam (Ativan 2mg/ml 1ml) 0.5 mg Q4H PRN IV For Anxiety 02/14/17 16:00 02/21/17 15:59 Methylprednisolone Sodium Succinate (Solu-MEDROL) 60 mg EVERY 6 HOURS IV 02/14/17 18:00 03/16/17 17:59 02/16/17 12:00 Morphine Sulfate (Morphine Sulfate) 2 mg EVERY 4 HOURS PRN IVP severe pain 7-10 02/14/17 16:00 02/21/17 15:59 02/16/17 09:19 Nitroglycerin (Ntg) 0.4 mg Q5M X 3 DOSES PRN SL Prn Chest Pain 02/14/17 16:00 03/16/17 15:59 Ondansetron HCl (Zofran) 4 mg Q6H PRN IVP Nausea & Vomiting 02/14/17 16:00 03/16/17 15:59 Pantoprazole (Protonix) 40 mg DAILY IV 02/15/17 09:00 03/17/17 08:59 02/16/17 09:09 Piperacillin Sod/ Tazobactam Sod/ Dextrose (Zosyn/D5W) 110 ml @ 27.5 mls/hr EVERY 8 HOURS IVPB 02/14/17 19:00 02/21/17 18:59 02/16/17 13:40 Promethazine HCl/ Codeine (Phenergan with Codeine) 5 ml EVERY 6 HOURS PRN ORAL cough 02/14/17 16:00 03/16/17 15:59 02/16/17 03:56 Temazepam (Restoril) 15 mg HSPRN PRN ORAL Insomnia 02/14/17 16:00 02/21/17 15:59 Theophylline 100 mg 100 mg EVERY 12 HOURS ORAL 02/14/17 21:00 03/16/17 20:59 02/16/17 09:06 MAIRA JAY Feb 16, 2017 16:04
[2017-02-16 19:00] VITALS: BP 120/72
[2017-02-16] MEDS: DuoNeb 0.5-3(2.5)mg/3ml neb HHN PRN (19:22)
--- NOTE | 2017-02-16 20:00 | Cardiology Progress Note ---
Assessment/Plan Assessment/Plan 1. Probable chronic obstructive pulmonary disease with exacerbation. 2. Abnormal electrocardiogram, unknown chronicity. 3. Coronary artery disease status post coronary artery bypass grafting. 4. 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 5. Obesity. 6. Hyperlipidemia 7. Renal insuf seem better overall however still wheezing all trop neg echo normla [place] ekg changes may be old tele sinus new elevated cr to repeat level in am Subjective Cardiovascular: Denies: chest pain, irregular heart rate, lightheadedness Respiratory: Reports: shortness of breath Gastrointestinal/Abdominal: Denies: abdominal pain Genitourinary: Denies: burning Objective Last 24 Hour Vital Signs Date Time Temp Pulse Resp B/P Pulse Ox O2 Delivery O2 Flow Rate FiO2 02/16/17 19:32 83 18 98 Nasal Cannula 2.0 28 02/16/17 19:31 83 18 98 Nasal Cannula 2.0 28 02/16/17 19:24 68 18 96 Nasal Cannula 2.0 28 02/16/17 19:23 68 18 96 Nasal Cannula 2.0 28 02/16/17 19:23 68 18 Nasal Cannula 2.0 28 02/16/17 18:45 98.1 02/16/17 16:50 98.1 02/16/17 16:10 63 02/16/17 16:00 98.2 68 20 139/80 94 Nasal Cannula 2.0 02/16/17 15:05 Nasal Cannula 02/16/17 15:05 Nasal Cannula 2.0 28 02/16/17 12:00 68 02/16/17 11:24 98.1 69 20 137/81 94 Nasal Cannula 2.0 02/16/17 11:09 Nasal Cannula 2.0 28 02/16/17 11:09 Nasal Cannula 02/16/17 08:22 98.2 63 20 151/87 94 Nasal Cannula 2.0 02/16/17 08:00 69 02/16/17 07:11 66 19 Nasal Cannula 2.0 28 02/16/17 07:11 66 18 98 Nasal Cannula 2.0 28 02/16/17 07:11 Nasal Cannula 02/16/17 04:00 60 02/16/17 04:00 98.1 64 20 126/77 94 Room Air 02/16/17 03:13 Nasal Cannula 02/16/17 03:13 Nasal Cannula 2.0 28 02/16/17 00:00 97.3 77 20 147/77 98 Room Air 02/15/17 22:45 Nasal Cannula 02/15/17 22:44 Nasal Cannula 2.0 28 02/15/17 20:00 97.9 84 18 132/71 Nasal Cannula 2.0 97 02/15/17 20:00 82 02/15/17 19:59 Nasal Cannula 02/15/17 19:58 70 18 99 Nasal Cannula 2.0 28 General Appearance: no apparent distress, alert Cardiovascular: normal rate, regular rhythm Respiratory/Chest: expiratory wheezing, inspiratory wheezing Abdomen: non tender, soft Extremities: no swelling Intake and Output 02/15/17 02/16/17 19:00 07:00 Intake Total 772.5 ml 82.5 ml Output Total 350 ml Balance 772.5 ml -267.5 ml Intake Oral 580 ml IV Total 192.5 ml 82.5 ml Output Urine Total 350 ml # Voids 1 # Bowel Movements 3 1 Laboratory Tests Test 02/16/17 00:00 02/16/17 00:39 02/16/17 10:59 Urine Color Yellow Urine Appearance Clear Urine pH 5 (4.5-8.0) Urine Specific [place] 1.010 (1.005-1.035) Urine Protein 2+ (NEGATIVE) H Urine Glucose (UA) Negative (NEGATIVE) Urine Ketones Negative (NEGATIVE) Urine Occult Blood Negative (NEGATIVE) Urine Nitrite Negative (NEGATIVE) Urine Bilirubin Negative (NEGATIVE) Urine Urobilinogen Normal MG/DL (0.0-1.0) Urine Leukocyte Esterase 1+ (NEGATIVE) H Urine RBC 0-2 /HPF (0 - 2) Urine WBC 2-4 /HPF (0 - 2) Urine Squamous Epithelial Cells Few /LPF (NONE/OCC) Urine Bacteria Few /HPF (NONE) Urine Osmolality Pending Urine Random Sodium 15 mmol/L Troponin I < 0.30 ng/mL (<=0.30) < 0.30 ng/mL (<=0.30) White Blood Count 10.2 K/UL (4.8-10.8) Red Blood Count 4.88 M/UL (4.20-5.40) Hemoglobin 13.9 G/DL (12.0-16.0) Hematocrit 42.8 % (37.0-47.0) Mean Corpuscular Volume 88 FL (80-99) Mean Corpuscular Hemoglobin 28.5 PG (27.0-31.0) Mean Corpuscular Hemoglobin Concent 32.5 G/DL (32.0-36.0) Red Cell Distribution Width 12.6 % (11.6-14.8) Platelet Count 327 K/UL (150-450) Mean Platelet Volume 6.8 FL (6.5-10.1) Neutrophils (%) (Auto) % (45.0-75.0) Lymphocytes (%) (Auto) % (20.0-45.0) Monocytes (%) (Auto) % (1.0-10.0) Eosinophils (%) (Auto) % (0.0-3.0) Basophils (%) (Auto) % (0.0-2.0) Differential Total Cells Counted 100 Neutrophils % (Manual) 88 % (45-75) H Lymphocytes % (Manual) 7 % (20-45) L Monocytes % (Manual) 4 % (1-10) Eosinophils % (Manual) 0 % (0-3) Basophils % (Manual) 0 % (0-2) Band Neutrophils 1 % (0-8) Platelet Estimate Adequate Platelet Morphology Normal Red Blood Cell Morphology Normal Sodium Level 136 mEQ/L (135-145) Potassium Level 4.7 mEQ/L (3.4-4.9) Chloride Level 93 mEQ/L (98-107) L Carbon Dioxide Level 23 mEQ/L (20-30) Anion Gap 20 (5-15) H Blood Urea Nitrogen 27 mg/dL (7-23) H Creatinine 2.1 mg/dL (0.5-0.9) H Estimat Glomerular Filtration Rate 29.1 mL/min (>60) Glucose Level 133 mg/dL (74-106) H Calcium Level 8.4 mg/dL (8.6-10.2) L Phosphorus Level 4.5 mg/dL (2.5-4.8) Magnesium Level 2.2 mg/dL (1.7-2.5) Total Bilirubin 0.3 mg/dL (0.0-1.2) Aspartate Amino Transf (AST/SGOT) 11 U/L (5-40) Alanine Aminotransferase (ALT/SGPT) 7 U/L (3-33) Alkaline Phosphatase 59 U/L (35-104) Total Protein 6.4 g/dL (6.6-8.7) L Albumin 4.0 g/dL (3.5-5.2) Globulin 2.4 g/dL Albumin/Globulin Ratio 1.6 (1.0-2.7) Microbiology Date/Time Source Procedure Growth Status 02/15/17 01:00 Sputum Gram Stain - Final Resulted 02/15/17 01:00 Sputum Sputum Culture - Preliminary NORMAL MINAL PRESENT Resulted 02/15/17 20:16 Stool Clostridium difficile Toxin Assay - Final Complete CARLY CLANCY Feb 16, 2017 20:00
[2017-02-17] VITALS (7 sets, daily range): BP systolic 135–153; BP diastolic 71–97
[2017-02-17] MEDS: Morphine Sulfate 2mg/ml Inj IVP PRN ×2 (04:51→18:53)
[2017-02-17] MEDS: Levothyroxine 125mcg tab ORAL SCH (06:11)
[2017-02-17] MEDS: Loperamide 2mg cap ORAL PRN ×2 (06:11→14:29)
[2017-02-17] MEDS: Promethazine/Codeine 5ml UD ORAL PRN (06:11)
[2017-02-17] MEDS: Piperacillin/Tazobactam 3.375 GM in D5W 110 ML IVPB SCH (06:12)
[2017-02-17] MEDS: NovoLOG Insulin Flexpen SUBQ SCH ×4 (06:24→21:07)
[2017-02-17 06:53] LABS: ALANINE AMINOTRANSFERASE 8 U/L (3-33); ALBUMIN/GLOBULIN RATIO 1.3 (1.0-2.7); ANION GAP 17 (5-15); ASPARTATE AMINO TRANSFERASE 10 U/L (5-40); CALCIUM 7.9 mg/dL (8.6-10.2); CARBON DIOXIDE 25 mEQ/L (20-30); CHLORIDE 97 mEQ/L (98-107); CREATININE 2.2 mg/dL (0.5-0.9); GLOMERULAR FILTRATION RATE 27.6 mL/min (>60); HEMOLYSIS 6; MAGNESIUM 2.2 mg/dL (1.7-2.5); PHOSPHORUS 4.5 mg/dL (2.5-4.8); POTASSIUM 4.5 mEQ/L (3.4-4.9); SODIUM 139 mEQ/L (135-145); TOTAL PROTEIN 6.7 g/dL (6.6-8.7)
[2017-02-17 07:05] LABS: MEAN CORPUSCULAR HEMOGLOBIN 28.9 PG (27.0-31.0); MEAN CORPUSCULAR HGB CONC 32.6 G/DL (32.0-36.0); MEAN CORPUSCULAR VOLUME 89 FL (80-99); MEAN PLATELET VOLUME 6.6 FL (6.5-10.1); PLATELET COUNT 325 K/UL (150-450); RED BLOOD COUNT 4.86 M/UL (4.20-5.40); RED CELL DISTRIBUTION WIDTH 12.4 % (11.6-14.8); WHITE BLOOD COUNT 10.6 K/UL (4.8-10.8)
[2017-02-17] MEDS: Theophylline ER 100mg ORAL SCH ×2 (08:52→20:45)
[2017-02-17] MEDS: Aspirin EC 81mg tab ORAL SCH (08:52)
[2017-02-17] MEDS: Solu-MEDROL 125mg Inj IV SCH (08:52)
[2017-02-17] MEDS: Pantoprazole Inj IV SCH (08:52)
[2017-02-17] MEDS: Heparin 5000 units/ml inj SUBQ SCH ×2 (08:54→20:46)
[2017-02-17 09:55] LABS: BAND NEUTROPHILS % (MANUAL) 0 % (0-8); BASOPHILS % (MANUAL) 0 % (0-2); EOSINOPHILS % (MANUAL) 0 % (0-3); LYMPHOCYTES % (MANUAL) 5 % (20-45); NEUTROPHILS % (MANUAL) 93 % (45-75); PLATELET ESTIMATE ADEQUATE; PLATELET MORPHOLOGY NORMAL; TOTAL CELLS COUNTED 100
--- NOTE | 2017-02-17 11:28 | Pulmonology Progress Note ---
Assessment/Plan Problems: (1) COPD with acute exacerbation (2) Bronchitis (3) Abdominal pain Assessment/Plan improving slowly taper steroids sputum negative respiratory treatment titrate fio2 antitussives dc abx and taper steroids because of rising bun/creatinin renal consult called Subjective ROS Limited/Unobtainable: No Interval Events: less short of breath Allergies: Coded Allergies: No Known Allergies (Verified Allergy, Unknown, 09/05/07) Objective Last 24 Hour Vital Signs Date Time Temp Pulse Resp B/P Pulse Ox O2 Delivery O2 Flow Rate FiO2 02/17/17 09:51 97.7 02/17/17 08:00 70 02/17/17 08:00 97.7 68 19 145/80 94 Nasal Cannula 2.0 02/17/17 07:50 Room Air 21 02/17/17 07:50 65 18 Room Air 21 02/17/17 07:50 Room Air 21 02/17/17 04:21 97.7 73 20 148/72 95 Nasal Cannula 2.0 02/17/17 04:00 66 02/17/17 03:19 Nasal Cannula 2.0 28 02/17/17 03:19 Nasal Cannula 2.0 28 02/17/17 00:00 97.3 84 20 135/73 94 Nasal Cannula 2.0 02/17/17 00:00 84 02/16/17 22:58 Nasal Cannula 2.0 28 02/16/17 22:58 Nasal Cannula 2.0 28 02/16/17 19:56 72 02/16/17 19:32 83 18 98 Nasal Cannula 2.0 28 02/16/17 19:31 83 18 98 Nasal Cannula 2.0 28 02/16/17 19:24 68 18 96 Nasal Cannula 2.0 28 02/16/17 19:23 68 18 96 Nasal Cannula 2.0 28 02/16/17 19:23 68 18 Nasal Cannula 2.0 28 02/16/17 19:00 98.4 73 18 120/72 90 Room Air 02/16/17 16:50 98.1 02/16/17 16:10 63 02/16/17 16:00 98.2 68 20 139/80 94 Nasal Cannula 2.0 02/16/17 15:05 Nasal Cannula 02/16/17 15:05 Nasal Cannula 2.0 28 02/16/17 12:00 68 Intake and Output 02/16/17 02/17/17 19:00 07:00 Intake Total 470.0 ml 470.0 ml Balance 470.0 ml 470.0 ml Intake Oral 360 ml 360 ml IV Total 110.0 ml 110.0 ml # Voids 2 7 Objective General Appearance: WD/WN Lines, tubes and drains: peripheral, HEENT: normocephalic, atraumatic Neck: non-tender, normal alignment Respiratory/Chest: chest wall non-tender, rhonchi Cardiovascular/Chest: normal peripheral pulses, normal rate Abdomen: normal bowel sounds Genitourinary/Rectal: normal genital exam, normal prostate exam Extremities: normal range of motion Skin Exam: normal pigmentation Microbiology Date/Time Source Procedure Growth Status 02/15/17 01:00 Sputum Gram Stain - Final Resulted 02/15/17 01:00 Sputum Sputum Culture - Preliminary Resulted 02/15/17 20:16 Stool Clostridium difficile Toxin Assay - Final Complete Laboratory Tests 02/17/17 05:20: White Blood Count 10.6, Red Blood Count 4.86, Hemoglobin 14.1, Hematocrit 43.1, Mean Corpuscular Volume 89, Mean Corpuscular Hemoglobin 28.9, Mean Corpuscular Hemoglobin Concent 32.6, Red Cell Distribution Width 12.4, Platelet Count 325, Mean Platelet Volume 6.6, Neutrophils (%) (Auto) , Lymphocytes (%) (Auto) , Monocytes (%) (Auto) , Eosinophils (%) (Auto) , Basophils (%) (Auto) , Differential Total Cells Counted 100, Neutrophils % (Manual) 93H, Lymphocytes % (Manual) 5L, Monocytes % (Manual) 2, Eosinophils % (Manual) 0, Basophils % ( Manual) 0, Band Neutrophils 0, Platelet Estimate Adequate, Platelet Morphology Normal, Red Blood Cell Morphology Normal, Sodium Level 139, Potassium Level 4.5 , Chloride Level 97L, Carbon Dioxide Level 25, Anion Gap 17H, Blood Urea Nitrogen 36H, Creatinine 2.2H, Estimat Glomerular Filtration Rate 27.6, Glucose Level 119H, Calcium Level 7.9L, Phosphorus Level 4.5, Magnesium Level 2.2, Total Bilirubin < 0.2, Aspartate Amino Transf (AST/SGOT) 10, Alanine Aminotransferase (ALT/SGPT) 8, Alkaline Phosphatase 54, Total Protein 6.7, Albumin 3.9, Globulin 2.8, Albumin/Globulin Ratio 1.3 Current Medications Medications (Trade) Dose Ordered Sig/Jose Route PRN Reason Start Time Stop Time Status Last Admin Dose Admin Albuterol/ Ipratropium (DuoNeb 0.5-3(2.5)mg/3ml) 3 ml EVERY 4 HOURS PRN HHN dyspnea 02/14/17 16:00 02/19/17 15:59 02/16/17 19:22 Aspirin (Ecotrin) 81 mg DAILY ORAL 02/15/17 17:00 03/17/17 16:59 02/17/17 08:52 Atorvastatin Calcium (Lipitor) 40 mg QHS ORAL 02/14/17 21:00 03/16/17 20:59 02/16/17 21:07 Dextrose (Dextrose 50%) STAT PRN IV Hypoglycemia 02/14/17 16:00 03/16/17 15:59 Gabapentin (Neurontin) 600 mg TID ORAL 02/14/17 18:00 03/16/17 17:59 02/17/17 08:51 Heparin Sodium (Porcine) (Heparin 5000 units/ml) 5,000 units EVERY 12 HOURS SUBQ 02/14/17 21:00 03/16/17 20:59 02/17/17 08:54 Insulin Aspart (NovoLOG) BEFORE MEALS AND HS SUBQ 02/14/17 21:00 03/16/17 20:59 02/17/17 06:24 Ketorolac Tromethamine (Toradol 30mg) 30 mg EVERY 8 HOURS PRN IV moderate pain 4-6 02/14/17 16:00 02/19/17 15:59 02/15/17 20:35 Levothyroxine Sodium (Synthroid) 125 mcg DAILY@0630 ORAL 02/15/17 06:30 03/17/17 06:29 02/17/17 06:11 Loperamide HCl (Imodium) 2 mg Q4H PRN ORAL Diarrhea 02/16/17 11:00 03/18/17 10:59 02/17/17 06:11 Lorazepam (Ativan 2mg/ml 1ml) 0.5 mg Q4H PRN IV For Anxiety 02/14/17 16:00 02/21/17 15:59 Methylprednisolone Sodium Succinate (Solu-MEDROL) 60 mg EVERY 12 HOURS IV 02/16/17 21:00 03/18/17 20:59 02/17/17 08:52 Morphine Sulfate (Morphine Sulfate) 2 mg EVERY 4 HOURS PRN IVP severe pain 7-10 02/14/17 16:00 02/21/17 15:59 02/17/17 04:51 Nitroglycerin (Ntg) 0.4 mg Q5M X 3 DOSES PRN SL Prn Chest Pain 02/14/17 16:00 03/16/17 15:59 Ondansetron HCl (Zofran) 4 mg Q6H PRN IVP Nausea & Vomiting 02/14/17 16:00 03/16/17 15:59 Pantoprazole (Protonix) 40 mg DAILY IV 02/15/17 09:00 03/17/17 08:59 02/17/17 08:52 Piperacillin Sod/ Tazobactam Sod/ Dextrose (Zosyn/D5W) 110 ml @ 27.5 mls/hr EVERY 8 HOURS IVPB 02/14/17 19:00 02/21/17 18:59 02/17/17 06:12 Promethazine HCl/ Codeine (Phenergan with Codeine) 5 ml EVERY 6 HOURS PRN ORAL cough 02/14/17 16:00 03/16/17 15:59 02/17/17 06:11 Temazepam (Restoril) 15 mg HSPRN PRN ORAL Insomnia 02/14/17 16:00 02/21/17 15:59 Theophylline 100 mg 100 mg EVERY 12 HOURS ORAL 02/14/17 21:00 03/16/17 20:59 02/17/17 08:52 MAIRA JAY Feb 17, 2017 11:28
[2017-02-17 11:46] LABS: URIC ACID 7.4 mg/dL (3.0-7.5)
[2017-02-17 11:57] LABS: THYROID STIMULATING HORMONE 0.007 uIU/mL (0.300-4.500)
[2017-02-17 13:29] LABS: APPEARANCE,URINE CLEAR; KETONES,URINE NEGATIVE (NEGATIVE); LEUKOCYTE ESTERASE ,URINE 1+ (NEGATIVE); NITRITE,URINE NEGATIVE (NEGATIVE); PH,URINE 6 (4.5-8.0); PROTEIN,URINE 2+ (NEGATIVE); UROBILINOGEN,URINE NORMAL MG/DL (0.0-1.0)
[2017-02-17] MEDS ORDERED: Nitroglycerin Subl 0.4mg tab (Bottle Of 25) SL PRN (13:30)
--- NOTE | 2017-02-17 13:35 | Consultation ---
Consult Note Consult Note asked to eval for renal failure- interviewed and examined- data reviewed current conditions; (1) COPD with acute exacerbation (2) Bronchitis (3) Abdominal pain Meds reviewed- Assessment/Plan acute renal failure- Cr 1.2 up to 2.2 etiology unclear ? related to steroids and antibiotics and partly dehydration Plan: [facility] kidney Urine studies monitor renal parameters per orders CRICKET LEÓN Feb 17, 2017 13:35
[2017-02-17 13:38] LABS: BACTERIA,URINE FEW /HPF; RBC,URINE 0-2 /HPF (0 - 2); SQUAMOUS EPITHELIAL CELL,UR FEW /LPF (NONE/OCC)
[2017-02-17] MEDS ORDERED: LORazepam Inj 2mg/ml 1ml IV PRN (16:00)
[2017-02-17] MEDS ORDERED: DuoNeb 0.5-3(2.5)mg/3ml neb HHN PRN (17:00)
--- NOTE | 2017-02-17 17:16 | Cardiology Progress Note ---
Assessment/Plan Status: stable, progressing Status Narrative Mrs Brunson is improving, but still w/ wheezing c/w copd exacerbation. She does not appear w/ s/sx ACS or chf Assessment/Plan continue asa, statin for CAD, w/ prev hx of CABG Cannot use b blockers due to copd/ asthma Continue pulm rx per Dr. Rose Subjective ROS Limited/Unobtainable: No Subjective Cardiology for Dr Aguayo Pt w/ improvement in dyspnea, cough. no cp Objective Last 24 Hour Vital Signs Date Time Temp Pulse Resp B/P Pulse Ox O2 Delivery O2 Flow Rate FiO2 02/17/17 16:00 98.2 69 20 153/90 92 Room Air 02/17/17 14:45 Room Air 21 02/17/17 14:23 86 16 97 Nasal Cannula 28 02/17/17 14:17 87 16 93 Nasal Cannula 2.0 28 02/17/17 14:17 28 02/17/17 14:07 98.1 02/17/17 12:00 98.1 67 20 147/87 96 Nasal Cannula 2.0 02/17/17 12:00 59 02/17/17 11:41 Room Air 21 02/17/17 11:41 Room Air 21 02/17/17 08:00 70 02/17/17 08:00 97.7 68 19 145/80 94 Nasal Cannula 2.0 02/17/17 07:50 Room Air 21 02/17/17 07:50 65 18 Room Air 21 02/17/17 07:50 Room Air 21 02/17/17 04:21 97.7 73 20 148/72 95 Nasal Cannula 2.0 02/17/17 04:00 66 02/17/17 03:19 Nasal Cannula 2.0 02/17/17 03:19 Nasal Cannula 2.0 28 02/17/17 00:00 97.3 84 20 135/73 94 Nasal Cannula 2.0 02/17/17 00:00 84 02/16/17 22:58 Nasal Cannula 2.0 28 02/16/17 22:58 Nasal Cannula 2.0 28 02/16/17 19:56 72 02/16/17 19:32 83 18 98 Nasal Cannula 2.0 28 02/16/17 19:31 83 18 98 Nasal Cannula 2.0 28 02/16/17 19:24 68 18 96 Nasal Cannula 2.0 28 02/16/17 19:23 68 18 96 Nasal Cannula 2.0 28 02/16/17 19:23 68 18 Nasal Cannula 2.0 28 02/16/17 19:00 98.4 73 18 120/72 90 Room Air General Appearance: WD/WN, alert, obese EENT: PERRL/EOMI Neck: normal alignment, supple, normal inspection Rhythm: NSR Cardiovascular: normal rate, regular rhythm Respiratory/Chest: expiratory wheezing Abdomen: non tender, soft, no mass Extremities: no swelling Intake and Output 02/16/17 02/17/17 19:00 07:00 Intake Total 470.0 ml 470.0 ml Balance 470.0 ml 470.0 ml Intake Oral 360 ml 360 ml IV Total 110.0 ml 110.0 ml # Voids 2 7 Laboratory Tests Test 02/17/17 05:20 02/17/17 13:00 White Blood Count 10.6 K/UL (4.8-10.8) Red Blood Count 4.86 M/UL (4.20-5.40) Hemoglobin 14.1 G/DL (12.0-16.0) Hematocrit 43.1 % (37.0-47.0) Mean Corpuscular Volume 89 FL (80-99) Mean Corpuscular Hemoglobin 28.9 PG (27.0-31.0) Mean Corpuscular Hemoglobin Concent 32.6 G/DL (32.0-36.0) Red Cell Distribution Width 12.4 % (11.6-14.8) Platelet Count 325 K/UL (150-450) Mean Platelet Volume 6.6 FL (6.5-10.1) Neutrophils (%) (Auto) % (45.0-75.0) Lymphocytes (%) (Auto) % (20.0-45.0) Monocytes (%) (Auto) % (1.0-10.0) Eosinophils (%) (Auto) % (0.0-3.0) Basophils (%) (Auto) % (0.0-2.0) Differential Total Cells Counted 100 Neutrophils % (Manual) 93 % (45-75) H Lymphocytes % (Manual) 5 % (20-45) L Monocytes % (Manual) 2 % (1-10) Eosinophils % (Manual) 0 % (0-3) Basophils % (Manual) 0 % (0-2) Band Neutrophils 0 % (0-8) Platelet Estimate Adequate Platelet Morphology Normal Red Blood Cell Morphology Normal Sodium Level 139 mEQ/L (135-145) Potassium Level 4.5 mEQ/L (3.4-4.9) Chloride Level 97 mEQ/L (98-107) L Carbon Dioxide Level 25 mEQ/L (20-30) Anion Gap 17 (5-15) H Blood Urea Nitrogen 36 mg/dL (7-23) H Creatinine 2.2 mg/dL (0.5-0.9) H Estimat Glomerular Filtration Rate 27.6 mL/min (>60) Glucose Level 119 mg/dL (74-106) H Plasma/Serum Osmolality Pending Uric Acid 7.4 mg/dL (3.0-7.5) Calcium Level 7.9 mg/dL (8.6-10.2) L Phosphorus Level 4.5 mg/dL (2.5-4.8) Magnesium Level 2.2 mg/dL (1.7-2.5) Total Bilirubin < 0.2 mg/dL (0.0-1.2) Aspartate Amino Transf (AST/SGOT) 10 U/L (5-40) Alanine Aminotransferase (ALT/SGPT) 8 U/L (3-33) Alkaline Phosphatase 54 U/L (35-104) Total Creatine Kinase 49 U/L (26-140) Total Protein 6.7 g/dL (6.6-8.7) Albumin 3.9 g/dL (3.5-5.2) Globulin 2.8 g/dL Albumin/Globulin Ratio 1.3 (1.0-2.7) Thyroid Stimulating Hormone (TSH) 0.007 uIU/mL (0.300-4.500) Free Thyroxine 1.82 ng/dL (0.86-1.85) Cortisol Pending Urine Color Pale yellow Urine Appearance Clear Urine pH 6 (4.5-8.0) Urine Specific [place] 1.010 (1.005-1.035) Urine Protein 2+ (NEGATIVE) H Urine Glucose (UA) Negative (NEGATIVE) Urine Ketones Negative (NEGATIVE) Urine Occult Blood Negative (NEGATIVE) Urine Nitrite Negative (NEGATIVE) Urine Bilirubin Negative (NEGATIVE) Urine Urobilinogen Normal MG/DL (0.0-1.0) Urine Leukocyte Esterase 1+ (NEGATIVE) H Urine RBC 0-2 /HPF (0 - 2) Urine WBC 2-4 /HPF (0 - 2) Urine Squamous Epithelial Cells Few /LPF (NONE/OCC) Urine Bacteria Few /HPF (NONE) Urine Eosinophils None seen Urine Osmolality Pending Urine Random Sodium 54 mmol/L Urine Random Chloride 37 mmol/L Urine Potassium Timed 33 mmol/L Microbiology Date/Time Source Procedure Growth Status 02/15/17 01:00 Sputum Gram Stain - Final Resulted 02/15/17 01:00 Sputum Sputum Culture - Preliminary Resulted 02/15/17 20:16 Stool Clostridium difficile Toxin Assay - Final Complete ROEL SOLARES Feb 17, 2017 17:16
[2017-02-17] MEDS ORDERED: Promethazine/Codeine 5ml UD ORAL PRN (18:00)
[2017-02-18] VITALS: BP 151/82
[2017-02-18] MEDS: Morphine Sulfate 2mg/ml Inj IVP PRN (00:29)
[2017-02-18 04:00] VITALS: BP 147/98
[2017-02-18] MEDS: NovoLOG Insulin Flexpen SUBQ SCH ×2 (06:30→12:51)
[2017-02-18] MEDS ORDERED: Levothyroxine 125mcg tab ORAL SCH (06:30)
[2017-02-18 07:43] LABS: BASOPHILS % (AUTO) 0.3 % (0.0-2.0); LYMPHOCYTES % (AUTO) 18.4 % (20.0-45.0); MEAN CORPUSCULAR HEMOGLOBIN 29.6 PG (27.0-31.0); MEAN CORPUSCULAR HGB CONC 33.2 G/DL (32.0-36.0); MEAN CORPUSCULAR VOLUME 89 FL (80-99); MEAN PLATELET VOLUME 7.3 FL (6.5-10.1); MONOCYTES % (AUTO) 8.1 % (1.0-10.0); NEUTROPHILS % (AUTO) 73.2 % (45.0-75.0); PLATELET COUNT 349 K/UL (150-450); RED BLOOD COUNT 5.02 M/UL (4.20-5.40); WHITE BLOOD COUNT 11.8 K/UL (4.8-10.8)
[2017-02-18 07:48] LABS: HEMOGLOBIN A1C 5.5 % (< 6.0)
[2017-02-18 08:00] VITALS: BP 122/76
[2017-02-18 08:06] LABS: ALBUMIN/GLOBULIN RATIO 1.3 (1.0-2.7); CALCIUM 8.1 mg/dL (8.6-10.2); CHOLESTEROL/HDL RATIO 2.4 (3.3-4.4); CREATININE 1.8 mg/dL (0.5-0.9); GLOMERULAR FILTRATION RATE 34.8 mL/min (>60); PHOSPHORUS 4.4 mg/dL (2.5-4.8); POTASSIUM 3.7 mEQ/L (3.4-4.9); TOTAL PROTEIN 6.9 g/dL (6.6-8.7)
[2017-02-18 08:22] LABS: CRP QUANT 0.7 mg/dL (< 0.5); URIC ACID 7.8 mg/dL (3.0-7.5)
[2017-02-18] MEDS ORDERED: Aspirin EC 81mg tab ORAL SCH (09:00)
[2017-02-18] MEDS ORDERED: Pantoprazole Inj IV SCH (09:00)
[2017-02-18] MEDS ORDERED: PredniSONE 20mg tab ORAL SCH ×2 (09:00)
[2017-02-18] MEDS: Loperamide 2mg cap ORAL PRN (09:30)
[2017-02-18] MEDS: Theophylline ER 100mg ORAL SCH (09:31)
[2017-02-18] MEDS: Heparin 5000 units/ml inj SUBQ SCH (09:39)
[2017-02-18 10:11] LABS: CORTISOL LC 13.3 ug/dL (.)
--- NOTE | 2017-02-18 11:47 | General Progress Note ---
Assessment/Plan Status: stable Status Narrative Cr lower Assessment/Plan status; acute renal failure- Cr 1.2 up to 2.2 now down 1.8 etiology unclear ? related to steroids and antibiotics and partly dehydration Plan: SARA kidney Urine studies monitor renal parameters taper steroids per orders Subjective ROS Limited/Unobtainable: No Constitutional: Reports: malaise Allergies: Coded Allergies: No Known Allergies (Verified Allergy, Unknown, 09/05/07) Objective Last 24 Hour Vital Signs Date Time Temp Pulse Resp B/P Pulse Ox O2 Delivery O2 Flow Rate FiO2 02/18/17 08:15 88 18 Room Air 21 02/18/17 08:10 88 18 94 Nasal Cannula 2.0 28 02/18/17 08:10 88 20 96 Nasal Cannula 2.0 28 02/18/17 08:00 98.2 68 19 122/76 100 Room Air 02/18/17 04:00 98.4 85 18 147/98 94 Nasal Cannula 2.0 02/18/17 02:57 66 20 94 Nasal Cannula 2.0 28 02/18/17 02:57 66 18 94 Nasal Cannula 2.0 28 02/18/17 00:59 98.1 02/18/17 00:00 98.6 71 18 151/82 93 Room Air 02/17/17 23:15 Room Air 02/17/17 23:15 Room Air 02/17/17 19:00 98.1 85 20 150/97 95 Room Air 02/17/17 16:00 98.2 69 20 153/90 92 Room Air 02/17/17 14:45 Room Air 21 02/17/17 14:23 86 16 97 Nasal Cannula 28 02/17/17 14:17 87 16 93 Nasal Cannula 2.0 28 02/17/17 14:17 28 02/17/17 14:07 98.1 02/17/17 12:00 98.1 67 20 147/87 96 Nasal Cannula 2.0 02/17/17 12:00 59 Intake and Output 02/17/17 02/18/17 19:00 07:00 Intake Total 710.0 ml 800 ml Balance 710.0 ml 800 ml Intake Oral 600 ml 800 ml IV Total 110.0 ml # Voids 4 6 # Bowel Movements 1 2 Laboratory Tests 02/17/17 13:00: Urine Color Pale yellow, Urine Appearance Clear, Urine pH 6, Urine Specific [place] 1.010, Urine Protein 2+H, Urine Glucose (UA) Negative, Urine Ketones Negative, Urine Occult Blood Negative, Urine Nitrite Negative, Urine Bilirubin Negative, Urine Urobilinogen Normal, Urine Leukocyte Esterase 1+H, Urine RBC 0-2 , Urine WBC 2-4, Urine Squamous Epithelial Cells Few, Urine Bacteria Few, Urine Eosinophils None seen, Urine Osmolality [Pending], Urine Random Sodium 54, Urine Random Chloride 37, Urine Potassium Timed 33 02/18/17 04:30: White Blood Count 11.8H, Red Blood Count 5.02, Hemoglobin 14.9, Hematocrit 44.8 , Mean Corpuscular Volume 89, Mean Corpuscular Hemoglobin 29.6, Mean Corpuscular Hemoglobin Concent 33.2, Red Cell Distribution Width 13.0, Platelet Count 349, Mean Platelet Volume 7.3, Neutrophils (%) (Auto) 73.2, Lymphocytes (% ) (Auto) 18.4L, Monocytes (%) (Auto) 8.1, Eosinophils (%) (Auto) 0.0, Basophils (%) (Auto) 0.3, Sodium Level 143, Potassium Level 3.7, Chloride Level 100, Carbon Dioxide Level 25, Anion Gap 18H, Blood Urea Nitrogen 34H, Creatinine 1.8H , Estimat Glomerular Filtration Rate 34.8, Glucose Level 90, Hemoglobin A1c 5.5 , Uric Acid 7.8H, Calcium Level 8.1L, Phosphorus Level 4.4, Magnesium Level 2.0 , Total Bilirubin 0.2, Gamma Glutamyl Transpeptidase 16, Aspartate Amino Transf (AST/SGOT) 15, Alanine Aminotransferase (ALT/SGPT) 13, Alkaline Phosphatase 55, Total Creatine Kinase 55, C-Reactive Protein, Quantitative 0.7H, Pro-B-Type Natriuretic Peptide 1422H, Total Protein 6.9, Albumin 3.9, Globulin 3.0, Albumin /Globulin Ratio 1.3, Triglycerides Level 140, Cholesterol Level 168, LDL Cholesterol 71, HDL Cholesterol 69H, Cholesterol/HDL Ratio 2.4L 02/18/17 04:50: Urine Eosinophils None seen, Urine Random Sodium 55 Height (Feet): 5 Height (Inches): 5.00 Weight (Pounds): 170 General Appearance: no apparent distress Cardiovascular: tachycardia - slightly Respiratory/Chest: decreased breath sounds Abdomen: distended CRICKET LEÓN Feb 18, 2017 11:47
[2017-02-18 12:00] VITALS: BP 167/90
[2017-02-18] MEDS ORDERED: PREDNISONE20 MG ORAL (13:49)
[2017-02-18] MEDS ORDERED: THEOPHYLLINE A100 MG ORAL (13:49)
--- NOTE | 2017-02-18 13:50 | Pulmonology Progress Note ---
Assessment/Plan Problems: (1) COPD with acute exacerbation (2) Bronchitis (3) Abdominal pain Assessment/Plan improving slowly taper steroids sputum negative respiratory treatment titrate fio2 antitussives dc abx and taper steroids because of rising bun/creatinin renal consult called Subjective Allergies: Coded Allergies: No Known Allergies (Verified Allergy, Unknown, 09/05/07) Objective Last 24 Hour Vital Signs Date Time Temp Pulse Resp B/P Pulse Ox O2 Delivery O2 Flow Rate FiO2 02/18/17 12:00 98.2 58 19 167/90 97 Room Air 02/18/17 08:15 88 18 Room Air 21 02/18/17 08:10 88 18 94 Nasal Cannula 2.0 28 02/18/17 08:10 88 20 96 Nasal Cannula 2.0 28 02/18/17 08:00 98.2 68 19 122/76 100 Room Air 02/18/17 04:00 98.4 85 18 147/98 94 Nasal Cannula 2.0 02/18/17 02:57 66 20 94 Nasal Cannula 2.0 28 02/18/17 02:57 66 18 94 Nasal Cannula 2.0 28 02/18/17 00:59 98.1 02/18/17 00:00 98.6 71 18 151/82 93 Room Air 02/17/17 23:15 Room Air 02/17/17 23:15 Room Air 02/17/17 19:00 98.1 85 20 150/97 95 Room Air 02/17/17 16:00 98.2 69 20 153/90 92 Room Air 02/17/17 14:45 Room Air 21 02/17/17 14:23 86 16 97 Nasal Cannula 28 02/17/17 14:17 87 16 93 Nasal Cannula 2.0 28 02/17/17 14:17 28 02/17/17 14:07 98.1 Intake and Output 02/17/17 02/18/17 19:00 07:00 Intake Total 710.0 ml 800 ml Balance 710.0 ml 800 ml Intake Oral 600 ml 800 ml IV Total 110.0 ml # Voids 4 6 # Bowel Movements 1 2 Objective General Appearance: WD/WN Lines, tubes and drains: peripheral, HEENT: normocephalic, atraumatic Neck: non-tender, normal alignment Respiratory/Chest: chest wall non-tender, rhonchi Cardiovascular/Chest: normal peripheral pulses, normal rate Abdomen: normal bowel sounds Genitourinary/Rectal: normal genital exam, normal prostate exam Extremities: normal range of motion Skin Exam: normal pigmentation Microbiology Date/Time Source Procedure Growth Status 02/15/17 20:16 Stool Clostridium difficile Toxin Assay - Final Complete Laboratory Tests 02/18/17 04:30: White Blood Count 11.8H, Red Blood Count 5.02, Hemoglobin 14.9, Hematocrit 44.8 , Mean Corpuscular Volume 89, Mean Corpuscular Hemoglobin 29.6, Mean Corpuscular Hemoglobin Concent 33.2, Red Cell Distribution Width 13.0, Platelet Count 349, Mean Platelet Volume 7.3, Neutrophils (%) (Auto) 73.2, Lymphocytes (% ) (Auto) 18.4L, Monocytes (%) (Auto) 8.1, Eosinophils (%) (Auto) 0.0, Basophils (%) (Auto) 0.3, Sodium Level 143, Potassium Level 3.7, Chloride Level 100, Carbon Dioxide Level 25, Anion Gap 18H, Blood Urea Nitrogen 34H, Creatinine 1.8H , Estimat Glomerular Filtration Rate 34.8, Glucose Level 90, Hemoglobin A1c 5.5 , Uric Acid 7.8H, Calcium Level 8.1L, Phosphorus Level 4.4, Magnesium Level 2.0 , Total Bilirubin 0.2, Gamma Glutamyl Transpeptidase 16, Aspartate Amino Transf (AST/SGOT) 15, Alanine Aminotransferase (ALT/SGPT) 13, Alkaline Phosphatase 55, Total Creatine Kinase 55, C-Reactive Protein, Quantitative 0.7H, Pro-B-Type Natriuretic Peptide 1422H, Total Protein 6.9, Albumin 3.9, Globulin 3.0, Albumin /Globulin Ratio 1.3, Triglycerides Level 140, Cholesterol Level 168, LDL Cholesterol 71, HDL Cholesterol 69H, Cholesterol/HDL Ratio 2.4L 02/18/17 04:50: Urine Eosinophils None seen, Urine Random Sodium 55 Current Medications Medications (Trade) Dose Ordered Sig/Jose Route PRN Reason Start Time Stop Time Status Last Admin Dose Admin Albuterol/ Ipratropium (DuoNeb 0.5-3(2.5)mg/3ml) 3 ml EVERY 4 HOURS PRN HHN dyspnea 02/17/17 17:00 02/22/17 16:59 02/17/17 14:16 Aspirin (Ecotrin) 81 mg DAILY ORAL 02/18/17 09:00 03/20/17 08:59 02/18/17 09:31 Atorvastatin Calcium (Lipitor) 40 mg QHS ORAL 02/17/17 21:00 03/19/17 20:59 02/17/17 20:45 Dextrose (Dextrose 50%) STAT PRN IV Hypoglycemia 02/17/17 16:00 03/19/17 15:59 Gabapentin (Neurontin) 600 mg TID ORAL 02/17/17 18:00 03/19/17 17:59 02/18/17 12:23 Heparin Sodium (Porcine) (Heparin 5000 units/ml) 5,000 units EVERY 12 HOURS SUBQ 02/17/17 21:00 03/19/17 20:59 02/18/17 09:39 Insulin Aspart (NovoLOG) BEFORE MEALS AND HS SUBQ 02/17/17 16:30 03/19/17 16:29 02/18/17 12:51 Levothyroxine Sodium (Synthroid) 125 mcg DAILY@0630 ORAL 02/18/17 06:30 03/20/17 06:29 02/18/17 06:42 Loperamide HCl (Imodium) 2 mg Q4H PRN ORAL Diarrhea 02/17/17 15:00 03/19/17 14:59 02/18/17 09:30 Lorazepam (Ativan 2mg/ml 1ml) 0.5 mg Q4H PRN IV For Anxiety 02/17/17 16:00 02/24/17 15:59 Morphine Sulfate (Morphine Sulfate) 2 mg EVERY 4 HOURS PRN IVP severe pain 7-10 02/17/17 17:00 02/24/17 16:59 02/18/17 00:29 Nitroglycerin (Ntg) 0.4 mg Q5M X 3 DOSES PRN SL Prn Chest Pain 02/17/17 13:30 03/19/17 13:29 Ondansetron HCl (Zofran) 4 mg Q6H PRN IVP Nausea & Vomiting 02/17/17 16:00 03/19/17 15:59 Pantoprazole (Protonix) 40 mg DAILY IV 02/18/17 09:00 03/20/17 08:59 02/18/17 11:14 Prednisone (predniSONE) 20 mg DAILY ORAL 02/18/17 09:00 03/20/17 08:59 02/18/17 09:32 Promethazine HCl/ Codeine (Phenergan with Codeine) 5 ml EVERY 6 HOURS PRN ORAL cough 02/17/17 18:00 03/19/17 17:59 Temazepam (Restoril) 15 mg HSPRN PRN ORAL Insomnia 02/17/17 16:00 02/24/17 15:59 Theophylline (Cosmo-Dur) 100 mg EVERY 12 HOURS ORAL 02/17/17 21:00 03/19/17 20:59 02/18/17 09:31 MAIRA JAY Feb 18, 2017 13:50
--- NOTE | 2017-02-18 18:19 | Cardiology Report ---
APPROVED REPORT EKG Measurement Heart [id number] MD [id number] Normal sinus rhythm Possible Left atrial enlargement Abnormal ECG
--- NOTE | 2017-02-18 18:37 | Cardiology Report ---
APPROVED REPORT EKG Measurement Heart [id number] OR 198P68 [id number] Normal sinus rhythm Abnormal ECG
--- NOTE | 2017-02-19 08:33 | Cardiology Report ---
APPROVED REPORT EXAM: Two-dimensional and M-mode echocardiogram with Doppler and color Doppler. INDICATION Chest Pain M-Mode DIMENSIONS IVSd1.5 (0.7-1.1cm)Left Atrium (MM)3.0 (1.6-4.0cm) LVDd5.6 (3.5-5.6cm)Aortic Root3.4 (2.0-3.7cm) PWd1.3 (0.7-1.1cm)Aortic Cusp Exc.1.7 (1.5-2.0cm) LVDs4.0 (2.5-4.0cm) PWs1.6 cm Normal left ventricular chamber size, systolic function and wall motion. Left ventricular ejection fraction estimated to be 60-65 %. Mild left ventricular hypertrophy. Anterior Echo-free space, may be due to pericardial fat or effusion. All other cardiac chamber sizes are within normal limits. Mild focal aortic valve sclerosis with adequate cusp excursion. Mildly thickened mitral valve leaflets with normal excursion. Mitral annulus and aortic root calcification. Pulmonic valve not well visualized. Normal tricuspid valve structure. IVC at normal size with physiologic collapse. A color flow and spectral Doppler study was performed and revealed: No aortic regurgitation. Trace mitral regurgitation. Mitral diastolic velocities suggest reduced left ventricular relaxation c/w mild LV diastolic dysfunction (Grade I). Trace tricuspid regurgitation. Tricuspid systolic velocities suggests peak right ventricular systolic pressure of 17 mmHg.
--- NOTE | 2017-02-19 09:53 | Diagnostic Imaging Report ---
Indication: Abnormal renal function test Technique: Grayscale and duplex images of the kidneys, retroperitoneum, and bladder were obtained. Comparison:None Findings: Right kidney measures 10.5 cm in length. Left kidney measures 10.1 cm in length. Both kidneys demonstrate normal echogenicity. There is mild renal pelvic fullness before patient voided. Prevoid bladder volume was 156 mL. After patient voided, no more renal collecting system fullness is visualized. However, postvoid bladder volume not significantly decreased, 124 mL No focal abnormality. Normal inferior vena cava. Echogenic structure at the floor of the bladder without shadowing is noted. Impression: Mild renal collecting system fullness, relieved after voiding, suspect chronic bladder obstruction. Questionable echogenic area the bladder floor, suspect artifactual is no corresponding abnormality is seen on CT scan of 3 days earlier. 124 mL postvoid bladder residual This agrees with the preliminary interpretation provided overnight by Dr. Gore
--- NOTE | 2017-02-20 12:42 | Discharge Summary ---
Discharge Summary Hospital Course Date of Admission Feb 14, 2017 at 13:30 Date of Discharge Feb 18, 2017 at 15:04 Admitting Diagnosis SHORTNESS OF BREATH HPI Tyrone Brunson is a 61 year old female who was admitted on Feb 14, 2017 at 13:30 for Shortness Of Breath Hospital Course dc summary# [id number] Discharge Medications New Medications: Prednisone* (Prednisone*) 20 Mg Tablet 20 MG ORAL DAILY for 10 Days, TAB Theophylline (Theodur*) 100 Mg Tab.er.12h 100 MG ORAL EVERY 12 HOURS for 30 Days, TAB Continued Medications: Albuterol Sulfate* (Albuterol Sulfate Mdi*) 8.5 Gm Hfa.aer.ad 2 PUFF INH Q4H PRN for For Cough, #1 EA Amlodipine Besylate/Benazepril 10-40 Mg (Amlodipine-Benazepril 10-40 Mg) 1 Each Capsule 1 CAP PO DAILY Aspirin Ec* (Aspirin Ec*) 81 Mg Tablet.dr 81 MG ORAL DAILY Atorvastatin Calcium* (Lipitor*) 40 Mg Tablet 40 MG PO DAILY, TAB Carisoprodol* (Soma*) 350 Mg Tablet 350 MG PO TID PRN for PRN Gabapentin* (Gabapentin*) 600 Mg Tablet 600 MG PO TID, #21 CAP Hydrocodone Bit/Acetaminophen 10-325* ([place] 10-325*) 1 Each Tablet 1 TAB ORAL Q6H PRN for For Pain PRN PAIN Ipratropium/Albuterol Sulfate (Combivent Respimat Inhal Honor) 4 Gm Mist.inhal 4 GM IH BID PRN for Shortness of Breath Levothyroxine Sodium* (Levothyroxine Sodium*) 125 Mcg Tablet 125 MCG PO DAILY Discharge Condition Upon Discharge: stable Discharge Disposition Patient was discharged to Home () Discharge Diagnoses: Discharge Instructions Discharge Instructions Special Instructions I have been assigned to complete a D/C Summary on this account. I was not involved in the patient management Amaya Stoddard NP ([place]te[place]) Feb 20, 2017 12:42
--- NOTE | 2017-02-21 07:39 | Discharge Summary 2 SIG ---
DATE OF ADMISSION: 02/14/2017 DATE OF DISCHARGE: 02/18/2017 REASON FOR ADMISSION: 61-year-old female came to the emergency room complaining of productive cough, shortness of breath, and wheezing for two - three days. The patient with a history of chronic obstructive pulmonary disease/asthma. Nonsmoker. She denied fevers or chills. She denied chest pain. She has tried home inhalers without no improvement. She also had bilateral abdominal pain without nausea and vomiting and watery diarrhea. No history of diverticulitis. No recent antibiotic use. Workup in the emergency room revealed the patient was afebrile, with no leukocytosis. Stable hemoglobin and hematocrit. The patient exhibited evidence of acute renal failure. The patient was started on empiric antibiotics. Blood culture collected. The patient was started on loading dose of IV Solu-Medrol and nebulizing treatment. A CT of the abdomen and pelvis revealed diverticulosis, but no diverticulitis. No acute issues. Lipase and LFTs were all within normal limits. EKG showed normal sinus rhythm. Chest x-ray with evidence of cardiomegaly, but no acute cardiopulmonary issues. The patient was admitted to the hospital for further management of COPD. ADMITTING DIAGNOSES: 1. Acute chronic obstructive pulmonary disease exacerbation. 2. Acute renal failure. 3. Bronchitis. 4. Abdominal pain. HOSPITAL STAY: The patient was admitted to the floor. Cardiology consult was requested. Supplemental oxygen and pulmonary toilet provided as needed. The patient was started on IV steroids, which were gradually tapered and changed to oral upon discharge. The patient was started on theophylline and continue upon discharge and empiric antibiotics. Sputum culture was negative. Stool for C. difficile was negative. Chest x-ray revealed no acute cardiopulmonary disease. Noted elevated BNP, however, in presence of renal failure elevated pro BNP likely not indicative of congestive heart failure. Cardiology consult was requested. Chief Diversity Officer recommended serial cardiac enzymes and echocardiogram. Serial troponin x3 were negative.Echocardiogram revealed preserved ejection fraction of 60% to 65% , right ventricular systolic pressure of 17. CT of the chest demonstrated mild focal reticular density at the right lung base, nonspecific finding. Noted fusiform aneurysm of the common iliac arteries bilaterally 3.3 cm on the left and 2.6 cm of the right with moderate adherent thrombus. Per Cardiology, needs routine monitoring and repeat CT test in 6 months. Blood pressure was managed with current regimen and was stable. Chief Diversity Officer felt that the shortness of breath was more related to pulmonary issues then to cardiac issues. Aspirin and statin continued. Lipid panel was stable. The patient with a history of hypothyroidism. Noted extremely low TSH and a slightly elevated free T4. Synthroid dose was decreased. Thyroid function panel to be checked in one month. Renal parameters worsening, creatinine up to 2.2 on 02/17/2017. Steroids tapered more , and creatinine down to 1.8 on the day of discharge. According to field service technician, etiology of acute renal failure likely multifactorial possibly related to steroid use plus or antibiotic plus dehydration. Dehydration resolved with IV fluids. Renal ultrasound revealed suspicion of chronic bladder obstruction. The patient was stable for discharge. DISCHARGE DIAGNOSES: 1. Acute chronic obstructive pulmonary disease exacerbation. 2. Bronchitis. 3. Acute renal failure on chronic renal insufficiency. 4. Abdominal pain - resolved 5. Hypertension 6. Coronary artery disease with history of coronary artery bypass graft. 7. Obesity. 8. Hyperlipidemia. 9. 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 DISCHARGE MEDICATIONS: See medication reconciliation list. DISCHARGE INSTRUCTIONS: The patient was discharged home. Follow up with the primary medical doctor. Amol Rose M.D. I have been assigned to dictate discharge summary on this account and I was not involved in the patient's management. Amaya Derasbibi N.PUzair DR: LEXII JOB#: [id number] CC: SOPHIA
== END 2017-02-18 15:04 | disposition home or self-care (01) | DRG 191 ==
LOC: EMR 12:57 → 2E 13:30 → EDBEDREQ 13:37 → 2E 16:32 → 4E 02-17 13:46
DX: J44.1 Chronic obstructive pulmonary disease with (acute) exacerbation (principal); N17.9 Acute kidney failure, unspecified; I72.3 Aneurysm of iliac artery; E78.5 Hyperlipidemia, unspecified; I25.10 Atherosclerotic heart disease of native coronary artery without angina pectoris; Z95.1 Presence of aortocoronary bypass graft; R10.84 Generalized abdominal pain; E66.9 Obesity, unspecified; E86.0 Dehydration; I10 Essential (primary) hypertension
CPT/HCPCS: 36415; 71010; 74177; 76775; 80053; 80061; 81001; 82436; 82533; 82550; 82553; 82962; 82977; 83036; 83735; 83880; 83930; 83935; 84100; 84133; 84300; 84439; 84443; 84481; 84484; 84550; 85007; 85025; 86140; 87070; 87205; 87324; 89050; 93005; 93306; 94640; 94664; J1815; J7620

== ENCOUNTER 2017-09-01 01:30 | Inpatient (IN) | payer MEDICARE, MEDICAID ==
[~2017-09-01] VITALS: Ht 165.1 cm; Wt 73.0 kg
[2017-09-01] VITALS (11 sets, daily range): BP systolic 114–150; BP diastolic 67–99
[~2017-09-01 01:30] MED LIST changes: +ASPIRIN EC81 MG ORAL; +COMBIVENT RESPIM4 GM IH; +NORCO 10-325 T1 EACH ORAL; +OMEPRAZOLE20 M2 PO; +PREDNISONE20 MG ORAL; +SOMA350 MG PO; +THEOPHYLLINE A100 MG ORAL
--- NOTE | 2017-09-01 02:12 | Emergency Room Report ---
History of Present Illness General Chief Complaint: Upper Respiratory Illness Source: Patient Present Illness HPI 62-year-old female history of COPD, CAD with CABG p/w SOB for 5 days. Also with nausea vomiting and diarrhea for 5 days SOB occurs both at rest and on exertion. + productive cough with thick white sputum. Denies chest pain. Patient has albuterol inhaler at home but has not been using. Patient does not have nebulizer at home. No recent steroid use. Denies fever, chills. Denies sick contacts or recent travel. Patient denies history of ICU admissions, intubations, or usage of BIPAP for asthma. Denies history of PE/DVT, no recent surgeries, prolonged immobilization, malignancy Patient also complaining of nausea vomiting and diarrhea for the last 5 days. Nausea and vomiting, nonbilious nonbloody, about 2 episodes a day, also associated with watery diarrhea about 2-3 episodes a day. Mild crampy abdominal pain. Denies any abdominal surgeries Allergies: Coded Allergies: No Known Allergies (Verified Allergy, Unknown, 09/05/07) Patient History Past Medical History: see triage record Past Surgical History: none Pertinent Family History: none Reviewed Nursing Documentation: PMH: Agreed, PSxH: Agreed Nursing Documentation-PMH Hx Cardiac Problems: Yes - bypass surgery 2009 Hx Hypertension: Yes Hx Asthma: Yes Hx COPD: Yes Hx Diabetes: No Hx Cancer: No Hx Gastrointestinal Problems: No Hx Neurological Problems: No Review of Systems All Other Systems: negative except mentioned in HPI Physical Exam Vital Signs Date Time Temp Pulse Resp B/P (MAP) Pulse Ox O2 Delivery O2 Flow Rate FiO2 09/01/17 01:34 98.1 72 18 170/105 92 Room Air Sp02 EP Interpretation: reviewed, abnormal - 89 on RA General Appearance: alert, GCS 15, non-toxic, other - Middle aged female, appears short of breath however speaking complete sentences, appears tired/ dehydrated, appears weak Head: normocephalic, atraumatic Eyes: bilateral eye normal inspection, bilateral eye PERRL, bilateral eye EOMI ENT: normal ENT inspection, normal pharynx, normal voice, moist mucus membranes Neck: normal inspection, full range of motion, supple Respiratory: no retraction, respiratory distress, speaking full sentences, other - Bilateral expiratory wheezing, chest symmetrical Cardiovascular #1: normal inspection, regular rate, rhythm, no edema, normal capillary refill Cardiovascular #2: 2+ radial (R), 2+ radial (L) Gastrointestinal: normal inspection, non tender, soft, non-distended, no guarding, no rebound Musculoskeletal: normal inspection, back normal, normal range of motion, non- tender Neurologic: normal inspection, alert, oriented x3, responsive, motor strength/ tone normal, sensory intact, normal gait, speech normal Psychiatric: normal inspection, judgement/insight normal, memory normal Skin: normal inspection, normal color, no rash, warm/dry, well hydrated, normal turgor Procedures Critical Care Time Critical Care Time 40 minutes of CC time 62-year-old female with COPD presenting with shortness of breath, nausea vomiting diarrhea VS: Tachypneic and hypoxic on room air Airway patent. PLAN: IV access, labs, chest x-ray nebulizer steroids antibiotics Anticipate admissionto Tele CC time also includes review of labs, review of EMR, discussion with family, d/ w hospitalist CC could include dosing of pressors, additional Abx CC time does not include procedures Medical Decision Making Diagnostic Impression: Primary Impression: COPD exacerbation Additional Impressions: Nausea vomiting and diarrhea Hypoxia NSTEMI (non-ST elevated myocardial infarction) CHF (congestive heart failure) ER Course 62-year-old female with pmhx of COPD p/w SOB for 5 days. Also with nausea vomiting diarrhea for 5 days DDX: COPD exacerbation/ pneumonia UTI, gastroenteritis At this time abdomen very soft nontender, Will hold any imaging at this time as there is low suspicion for acute intra-abdominal surgical pathology Plan: IV access, advance agent, O2 nasal cannula, EKG, CXR Duonebs, steroids Will consider BIPAP for persistent or worsening respiratory status IV fluids, Zofran ER Course: Patient's respiratory status has been closely monitored in the ED. Patient has been treated with combivent x 3, steroids, antibiotics. Repeat lung auscultation reveals persistent wheezing. Azithromycin given Pt initially started on fluids as she appeared dry, however when BNP resulted DC 'ed fluids, received about 500cc only. Troponin - 0.127, Repeat trop slightly less, however still positive. no CKD. will start heparin to treat for NSTEMI continued to be SOB however speaking in complete sentences, no bipap indicated at this time pain improved Disposition: Patient will be admitted to telemetry. SOB likely 2/2 to both COPD and CHF, NSTEMI Patient remains critical with vital signs revealing tachypnea and hypoxia. Patient requires close monitoring of respiratory status, serial troponin, continuation of heparin drip D/W hospitalist Dr Rose Please note that this Emergency Department Report was dictated using [employer] protection specialist technology software, occasionally this can lead to erroneous entry secondary to interpretation by the dictation equipment. CXR Ordered: Yes 1 view Indication: Chest pain EP interpretation: Yes Interpretation: cardiomegaly no definite infiltrate seen Impression: cardiomegaly Electronically signed by Phil Bellamy MD Laboratory Tests Test 09/01/17 02:00 09/01/17 02:25 09/01/17 04:10 Urine Color Yellow Urine Appearance Clear Urine pH 6.5 (4.5-8.0) Urine Specific [place] 1.010 (1.005-1.035) Urine Protein Negative (NEGATIVE) Urine Glucose (UA) Negative (NEGATIVE) Urine Ketones Negative (NEGATIVE) Urine Occult Blood Negative (NEGATIVE) Urine Nitrite Negative (NEGATIVE) Urine Bilirubin Negative (NEGATIVE) Urine Urobilinogen Normal MG/DL (0.0-1.0) Urine Leukocyte Esterase Negative (NEGATIVE) White Blood Count 4.9 K/UL (4.8-10.8) Red Blood Count 5.35 M/UL (4.20-5.40) Hemoglobin 15.6 G/DL (12.0-16.0) Hematocrit 47.4 % (37.0-47.0) H Mean Corpuscular Volume 89 FL (80-99) Mean Corpuscular Hemoglobin 29.1 PG (27.0-31.0) Mean Corpuscular Hemoglobin Concent 32.9 G/DL (32.0-36.0) Red Cell Distribution Width 12.2 % (11.6-14.8) Platelet Count 190 K/UL (150-450) Mean Platelet Volume 8.4 FL (6.5-10.1) Neutrophils (%) (Auto) 58.1 % (45.0-75.0) Lymphocytes (%) (Auto) 33.1 % (20.0-45.0) Monocytes (%) (Auto) 8.2 % (1.0-10.0) Eosinophils (%) (Auto) 0.1 % (0.0-3.0) Basophils (%) (Auto) 0.4 % (0.0-2.0) Prothrombin Time 9.9 SEC (9.30-11.50) Prothrombin Time INR 0.9 (0.9-1.1) PTT 31 SEC (23-33) Sodium Level 133 mEQ/L (135-145) L Potassium Level 4.6 mEQ/L (3.4-4.9) Chloride Level 99 mEQ/L (98-107) Carbon Dioxide Level 20 mEQ/L (20-30) Anion Gap 14 (5-15) Blood Urea Nitrogen 19 mg/dL (7-23) Creatinine 1.2 mg/dL (0.5-0.9) H Estimate Glomerular Filtration Rate 55.4 mL/min (>60) Glucose Level 106 mg/dL (74-106) Calcium Level 8.3 mg/dL (8.6-10.2) L Total Bilirubin 0.4 mg/dL (0.0-1.2) Aspartate Amino Transferase (AST) 21 U/L (5-40) Alanine Aminotransferase (ALT) 10 U/L (3-33) Alkaline Phosphatase 59 U/L (35-104) Troponin I 0.127 ng/mL (0.000-0.056) 0.117 ng/mL (0.000-0.056) Pro-B-Type Natriuretic Peptide 758 pg/mL (0-125) H Total Protein 7.0 g/dL (6.6-8.7) Albumin 4.1 g/dL (3.5-5.2) Globulin 2.9 g/dL Albumin/Globulin Ratio 1.4 (1.0-2.7) Lipase 34 U/L (< 60) EKG Diagnostic Results Rate: normal Rhythm: NSR ST Segments: other - T-wave in version seen in aVL and 1 ASA given to the pt in ED: Yes Rhythm Strip Diag. Results EP Interpretation: yes Rate: 78 Rhythm: NSR, no PVC's, no ectopy Last Vital Signs Date Time Temp Pulse Resp B/P (MAP) Pulse Ox O2 Delivery O2 Flow Rate FiO2 09/01/17 01:50 98.4 75 24 146/84 94 Room Air Disposition: ADMITTED INPATIENT Condition: Serious Phil Bellamy M.D. Sep 01, 2017 02:12
[2017-09-01] MEDS ORDERED: Ipratropium 0.02% Inh Soln 2.5ml UD HHN ONE (02:15)
[2017-09-01] MEDS: Albuterol ud Inhalation HHN SCH ×3 (02:21→02:52)
[2017-09-01 02:38] LABS: BASOPHILS % (AUTO) 0.4 % (0.0-2.0); EOSINOPHILS % (AUTO) 0.1 % (0.0-3.0); LYMPHOCYTES % (AUTO) 33.1 % (20.0-45.0); MEAN CORPUSCULAR HEMOGLOBIN 29.1 PG (27.0-31.0); MEAN CORPUSCULAR HGB CONC 32.9 G/DL (32.0-36.0); MEAN CORPUSCULAR VOLUME 89 FL (80-99); MEAN PLATELET VOLUME 8.4 FL (6.5-10.1); MONOCYTES % (AUTO) 8.2 % (1.0-10.0); NEUTROPHILS % (AUTO) 58.1 % (45.0-75.0); PLATELET COUNT 190 K/UL (150-450); RED BLOOD COUNT 5.35 M/UL (4.20-5.40); RED CELL DISTRIBUTION WIDTH 12.2 % (11.6-14.8); WHITE BLOOD COUNT 4.9 K/UL (4.8-10.8)
[2017-09-01 02:39] LABS: APPEARANCE,URINE CLEAR; KETONES,URINE NEGATIVE (NEGATIVE); LEUKOCYTE ESTERASE ,URINE NEGATIVE (NEGATIVE); NITRITE,URINE NEGATIVE (NEGATIVE); PH,URINE 6.5 (4.5-8.0); UROBILINOGEN,URINE NORMAL MG/DL (0.0-1.0)
[2017-09-01 02:40] LABS: PROTEIN,URINE NEGATIVE (NEGATIVE)
[2017-09-01 02:56] LABS: ALBUMIN/GLOBULIN RATIO 1.4 (1.0-2.7); CALCIUM 8.3 mg/dL (8.6-10.2); CREATININE 1.2 mg/dL (0.5-0.9); GLOMERULAR FILTRATION RATE 55.4 mL/min (>60); POTASSIUM 4.6 mEQ/L (3.4-4.9)
[2017-09-01 03:28] LABS: INR 0.9 (0.9-1.1); PROTHROMBIN TIME 9.9 SEC (9.30-11.50)
[2017-09-01] MEDS ORDERED: Morphine Sulfate 4mg/ml Inj IVP ONE (03:30)
[2017-09-01] MEDS ORDERED: Azithromycin 500 MG in D5W 275 ML IVPB ONE (03:30)
[2017-09-01] MEDS ORDERED: Azithromycin 500mg Inj IV ONE (03:31)
[2017-09-01] MEDS ORDERED: Heparin 25,000u/D5W 500ml 500 ML IV SCH (05:00)
[2017-09-01] MEDS ORDERED: Heparin 5000 units/ml inj IV ONE (05:00)
[2017-09-01] MEDS ORDERED: Ketorolac 30mg Inj IV PRN (07:30)
[2017-09-01] MEDS ORDERED: LORazepam Inj 2mg/ml 1ml IV PRN (07:30)
[2017-09-01] MEDS ORDERED: Albuterol/Ipratropium 3ml neb HHN PRN (07:30)
[2017-09-01] MEDS ORDERED: Nitroglycerin Subl 0.4mg tab SL PRN (07:30)
[2017-09-01] MEDS ORDERED: Heparin 5000 units/ml inj SUBQ SCH (09:00)
[2017-09-01] MEDS: Morphine Sulfate 2mg/ml Inj IVP PRN ×2 (09:04→14:23)
--- NOTE | 2017-09-01 10:08 | Diagnostic Imaging Report ---
Indication: Shortness of breath Technique: XRAY CHEST 1 V Comparison: 02/14/17 Findings: Cardiac silhouette is prominent. Sternotomy wires and mediastinal clips are seen. There is right midlung subsegmental atelectasis. There is no pneumothorax or pleural effusion. Degenerative changes of the spine are seen. Impression: Right midlung subsegmental atelectasis. Otherwise no acute cardiopulmonary disease.
[2017-09-01] MEDS: Theophylline ER 100mg ORAL SCH ×2 (10:38→21:45)
--- NOTE | 2017-09-01 12:23 | History and Physical ---
History of Present Illness General Date patient seen: Sep 01, 2017 Reason for Hospitalization: Upper Respiratory Illness Present Illness HPI 61 year old female hx of smoking, htn, CAD, CABG presented to [facility] [place] with productive cough, SOB, wheezing for 2-3 days. Also c/o 1 week watery diarrhea , bilateral abd pain without nausea/vomiting. Her troponin was positive and she is admitted for further work up. Allergies: Coded Allergies: No Known Allergies (Verified Allergy, Unknown, 09/05/07) Medication History Scheduled Amlodipine Besylate/Benazepril 10-40 Mg (Amlodipine-Benazepril 10-40 Mg), 1 CAP PO DAILY, (Reported) Aspirin Ec* (Aspirin Ec*), 81 MG ORAL DAILY, (Reported) Atorvastatin Calcium* (Lipitor*), 40 MG PO DAILY, (Reported) Gabapentin* (Gabapentin*), 600 MG PO TID, (Reported) Levothyroxine Sodium* (Levothyroxine Sodium*), 125 MCG PO DAILY, (Reported) Prednisone* (Prednisone*), 20 MG ORAL DAILY Theophylline (Theodur*), 100 MG ORAL EVERY 12 HOURS Scheduled PRN Albuterol Sulfate* (Albuterol Sulfate Mdi*), 2 PUFF INH Q4H PRN for For Cough Carisoprodol* (Soma*), 350 MG PO TID PRN for PRN, (Reported) Hydrocodone Bit/Acetaminophen 10-325* ([place] 10-325*), 1 TAB ORAL Q6H PRN for For Pain, (Reported) Ipratropium/Albuterol Sulfate (Combivent Respimat Inhal [place]), 4 GM IH BID PRN for Shortness of Breath, (Reported) Omeprazole (Omeprazole), 20 MG PO DAILY PRN for GERD, (Reported) Patient History Healthcare decision maker Resuscitation status Advanced Directive on File Past Medical/Surgical History Past Medical/Surgical History: (1) CAD (coronary artery disease) (2) Hx of CABG Review of Systems All Other Systems: negative except mentioned in HPI Physical Exam General Appearance: WD/WN Lines, tubes and drains: peripheral HEENT: normocephalic, atraumatic Neck: non-tender, normal alignment Respiratory/Chest: chest wall non-tender, lungs clear, normal breath sounds Cardiovascular/Chest: normal peripheral pulses, normal rate Abdomen: normal bowel sounds, soft Genitourinary/Rectal: normal genital exam Extremities: normal range of motion, normal inspection Skin Exam: normal pigmentation Last 24 Hour Vital Signs Date Time Temp Pulse Resp B/P (MAP) Pulse Ox O2 Delivery O2 Flow Rate FiO2 09/01/17 11:54 97.9 71 18 150/90 92 Nasal Cannula 2.0 09/01/17 08:18 98.1 70 18 130/74 93 Nasal Cannula 2.0 09/01/17 07:00 98.6 67 19 132/70 93 Nasal Cannula 2.0 09/01/17 06:58 98.6 67 19 132/70 93 Nasal Cannula 2.0 09/01/17 06:15 98.5 74 19 137/67 93 Nasal Cannula 2.0 09/01/17 05:15 98.4 74 20 125/86 95 Nasal Cannula 2.0 09/01/17 04:19 98.8 72 18 133/69 94 Nasal Cannula 2.0 09/01/17 04:08 98.8 09/01/17 03:27 98.5 86 23 114/72 94 Nasal Cannula 2.0 09/01/17 02:55 98.6 82 20 134/77 99 Room Air 09/01/17 02:52 71 20 99 Room Air 09/01/17 02:36 77 16 99 Room Air 09/01/17 02:35 77 20 99 Room Air 09/01/17 02:18 70 16 Room Air 09/01/17 02:18 70 16 97 Room Air 09/01/17 01:50 98.4 75 24 146/84 94 Room Air 09/01/17 01:50 75 24 Room Air 09/01/17 01:34 98.1 72 18 170/105 92 Room Air Intake and Output 09/01/17 09/02/17 19:00 07:00 Intake Total 360 ml Balance 360 ml Intake Oral 360 ml # Voids 3 Laboratory Tests Test 09/01/17 02:00 09/01/17 02:25 09/01/17 04:10 09/01/17 11:30 Urine Color Yellow Urine Appearance Clear Urine pH 6.5 (4.5-8.0) Urine Specific [place] 1.010 (1.005-1.035) Urine Protein Negative (NEGATIVE) Urine Glucose (UA) Negative (NEGATIVE) Urine Ketones Negative (NEGATIVE) Urine Occult Blood Negative (NEGATIVE) Urine Nitrite Negative (NEGATIVE) Urine Bilirubin Negative (NEGATIVE) Urine Urobilinogen Normal MG/DL (0.0-1.0) Urine Leukocyte Esterase Negative (NEGATIVE) White Blood Count 4.9 K/UL (4.8-10.8) Red Blood Count 5.35 M/UL (4.20-5.40) Hemoglobin 15.6 G/DL (12.0-16.0) Hematocrit 47.4 % (37.0-47.0) H Mean Corpuscular Volume 89 FL (80-99) Mean Corpuscular Hemoglobin 29.1 PG (27.0-31.0) Mean Corpuscular Hemoglobin Concent 32.9 G/DL (32.0-36.0) Red Cell Distribution Width 12.2 % (11.6-14.8) Platelet Count 190 K/UL (150-450) Mean Platelet Volume 8.4 FL (6.5-10.1) Neutrophils (%) (Auto) 58.1 % (45.0-75.0) Lymphocytes (%) (Auto) 33.1 % (20.0-45.0) Monocytes (%) (Auto) 8.2 % (1.0-10.0) Eosinophils (%) (Auto) 0.1 % (0.0-3.0) Basophils (%) (Auto) 0.4 % (0.0-2.0) Prothrombin Time 9.9 SEC (9.30-11.50) Prothromb Time International Ratio 0.9 (0.9-1.1) Activated Partial Thromboplast Time 31 SEC (23-33) 65 SEC (23-33) H Sodium Level 133 mEQ/L (135-145) L Potassium Level 4.6 mEQ/L (3.4-4.9) Chloride Level 99 mEQ/L (98-107) Carbon Dioxide Level 20 mEQ/L (20-30) Anion Gap 14 (5-15) Blood Urea Nitrogen 19 mg/dL (7-23) Creatinine 1.2 mg/dL (0.5-0.9) H Estimat Glomerular Filtration Rate 55.4 mL/min (>60) Glucose Level 106 mg/dL (74-106) Calcium Level 8.3 mg/dL (8.6-10.2) L Total Bilirubin 0.4 mg/dL (0.0-1.2) Aspartate Amino Transf (AST/SGOT) 21 U/L (5-40) Alanine Aminotransferase (ALT/SGPT) 10 U/L (3-33) Alkaline Phosphatase 59 U/L (35-104) Troponin I 0.127 ng/mL (0.000-0.056) 0.117 ng/mL (0.000-0.056) Pro-B-Type Natriuretic Peptide 758 pg/mL (0-125) H Total Protein 7.0 g/dL (6.6-8.7) Albumin 4.1 g/dL (3.5-5.2) Globulin 2.9 g/dL Albumin/Globulin Ratio 1.4 (1.0-2.7) Lipase 34 U/L (< 60) Height (Feet): 5 Height (Inches): 5.00 Weight (Pounds): 170 Medications Current Medications Medications (Trade) Dose Ordered Sig/Jose Route PRN Reason Start Time Stop Time Status Last Admin Dose Admin Albuterol/ Ipratropium (DuoNeb 0.5-3(2.5)mg/3ml) 3 ml EVERY 4 HOURS PRN HHN dyspnea 09/01/17 07:30 09/06/17 07:29 Dextrose (Dextrose 50%) STAT PRN IV Hypoglycemia 09/01/17 07:30 10/01/17 07:29 Heparin Sodium/ Dextrose 500 ml @ 18.507 mls/ hr adjust per protocol IV 09/01/17 05:00 10/01/17 04:59 09/01/17 05:22 Ketorolac Tromethamine (Toradol 30mg) 30 mg EVERY 8 HOURS PRN IV moderate pain 4-6 09/01/17 07:30 09/06/17 07:29 Lorazepam (Ativan 2mg/ml 1ml) 0.5 mg Q4H PRN IV For Anxiety 09/01/17 07:30 09/08/17 07:29 Methylprednisolone Sodium Succinate (Solu-MEDROL) 60 mg EVERY 6 HOURS IV 09/01/17 12:00 10/01/17 11:59 Morphine Sulfate (Morphine Sulfate) 2 mg EVERY 4 HOURS PRN IVP severe pain 7-10 09/01/17 07:30 09/08/17 07:29 09/01/17 09:04 Nitroglycerin (Ntg) 0.4 mg Q5M X 3 DOSES PRN SL Prn Chest Pain 09/01/17 07:30 10/01/17 07:29 Ondansetron HCl (Zofran) 4 mg Q6H PRN IVP Nausea & Vomiting 09/01/17 07:30 10/01/17 07:29 Piperacillin Sod/ Tazobactam Sod 3.375 gm/Dextrose 110 ml @ 27.5 mls/hr EVERY 8 HOURS IVPB 09/01/17 14:00 09/06/17 13:59 Promethazine HCl/ Codeine (Phenergan with Codeine) 5 ml EVERY 6 HOURS PRN ORAL cough 09/01/17 07:30 10/01/17 07:29 Temazepam (Restoril) 15 mg HSPRN PRN ORAL Insomnia 09/01/17 07:30 09/08/17 07:29 Theophylline (Cosmo-Dur) 100 mg EVERY 12 HOURS ORAL 09/01/17 09:30 10/01/17 09:29 09/01/17 10:38 Assessment/Plan Problem List: (1) COPD with exacerbation ICD Codes: J44.1 - Chronic obstructive pulmonary disease with (acute) exacerbation SNOMED: 348316099, 356897024 (2) Bronchitis ICD Codes: J40 - Bronchitis, not specified as acute or chronic SNOMED: 63642339 (3) NSTEMI (non-ST elevated myocardial infarction) ICD Codes: I21.4 - Non-ST elevation (NSTEMI) myocardial infarction SNOMED: 844813411 (4) CAD (coronary artery disease) ICD Codes: I25.10 - Atherosclerotic heart disease of [place] coronary artery without angina pectoris SNOMED: 57754570 (5) Hx of CABG ICD Codes: Z95.1 - Presence of aortocoronary bypass graft SNOMED: 522909627, 994661235 Assessment/Plan check sputum IV abx/ steroids cardiology to see echo cardiogram keep in helio. MAIRA JAY Sep 01, 2017 12:23
[2017-09-01] MEDS: Solu-MEDROL 125mg Inj IV SCH ×3 (12:59→23:17)
[2017-09-01] MEDS ORDERED: Piperacillin/Tazobactam 2.25 GM in D5W 55 ML IV SCH (14:00)
[2017-09-01] MEDS: Zoysn 3.37gm in D5W 110ml IVPB SCH ×2 (14:22→21:45)
--- NOTE | 2017-09-01 15:26 | Cardiology Progress Note ---
Assessment/Plan Assessment/Plan [id number] abn cardaicc enzyme (not yet meet criterea for who for mi) chroncially abn ekg copd exacerbation brondhititis recurrent nausea and vomitttign chest pain a time of vomitting ecotrin statin for nwo copd reaction will follow may need ischemia eval eventually when sshe is better dependign on davi elvel of the cardiac enzymes Objective Last 24 Hour Vital Signs Date Time Temp Pulse Resp B/P (MAP) Pulse Ox O2 Delivery O2 Flow Rate FiO2 09/01/17 12:00 61 09/01/17 11:54 97.9 71 18 150/90 92 Nasal Cannula 2.0 09/01/17 08:18 98.1 70 18 130/74 93 Nasal Cannula 2.0 09/01/17 08:00 73 09/01/17 07:00 98.6 67 19 132/70 93 Nasal Cannula 2.0 09/01/17 06:58 98.6 67 19 132/70 93 Nasal Cannula 2.0 09/01/17 06:15 98.5 74 19 137/67 93 Nasal Cannula 2.0 09/01/17 05:15 98.4 74 20 125/86 95 Nasal Cannula 2.0 09/01/17 04:19 98.8 72 18 133/69 94 Nasal Cannula 2.0 09/01/17 04:08 98.8 09/01/17 03:27 98.5 86 23 114/72 94 Nasal Cannula 2.0 09/01/17 02:55 98.6 82 20 134/77 99 Room Air 09/01/17 02:52 71 20 99 Room Air 09/01/17 02:36 77 16 99 Room Air 09/01/17 02:35 77 20 99 Room Air 09/01/17 02:18 70 16 Room Air 09/01/17 02:18 70 16 97 Room Air 09/01/17 01:50 98.4 75 24 146/84 94 Room Air 09/01/17 01:50 75 24 Room Air 09/01/17 01:34 98.1 72 18 170/105 92 Room Air Intake and Output 09/01/17 09/02/17 19:00 07:00 Intake Total 600 ml Balance 600 ml Intake Oral 600 ml # Voids 4 Laboratory Tests Test 09/01/17 02:00 09/01/17 02:25 09/01/17 04:10 09/01/17 11:30 Urine Color Yellow Urine Appearance Clear Urine pH 6.5 (4.5-8.0) Urine Specific [place] 1.010 (1.005-1.035) Urine Protein Negative (NEGATIVE) Urine Glucose (UA) Negative (NEGATIVE) Urine Ketones Negative (NEGATIVE) Urine Occult Blood Negative (NEGATIVE) Urine Nitrite Negative (NEGATIVE) Urine Bilirubin Negative (NEGATIVE) Urine Urobilinogen Normal MG/DL (0.0-1.0) Urine Leukocyte Esterase Negative (NEGATIVE) White Blood Count 4.9 K/UL (4.8-10.8) Red Blood Count 5.35 M/UL (4.20-5.40) Hemoglobin 15.6 G/DL (12.0-16.0) Hematocrit 47.4 % (37.0-47.0) H Mean Corpuscular Volume 89 FL (80-99) Mean Corpuscular Hemoglobin 29.1 PG (27.0-31.0) Mean Corpuscular Hemoglobin Concent 32.9 G/DL (32.0-36.0) Red Cell Distribution Width 12.2 % (11.6-14.8) Platelet Count 190 K/UL (150-450) Mean Platelet Volume 8.4 FL (6.5-10.1) Neutrophils (%) (Auto) 58.1 % (45.0-75.0) Lymphocytes (%) (Auto) 33.1 % (20.0-45.0) Monocytes (%) (Auto) 8.2 % (1.0-10.0) Eosinophils (%) (Auto) 0.1 % (0.0-3.0) Basophils (%) (Auto) 0.4 % (0.0-2.0) Prothrombin Time 9.9 SEC (9.30-11.50) Prothromb Time International Ratio 0.9 (0.9-1.1) Activated Partial Thromboplast Time 31 SEC (23-33) 65 SEC (23-33) H Sodium Level 133 mEQ/L (135-145) L Potassium Level 4.6 mEQ/L (3.4-4.9) Chloride Level 99 mEQ/L (98-107) Carbon Dioxide Level 20 mEQ/L (20-30) Anion Gap 14 (5-15) Blood Urea Nitrogen 19 mg/dL (7-23) Creatinine 1.2 mg/dL (0.5-0.9) H Estimat Glomerular Filtration Rate 55.4 mL/min (>60) Glucose Level 106 mg/dL (74-106) Calcium Level 8.3 mg/dL (8.6-10.2) L Total Bilirubin 0.4 mg/dL (0.0-1.2) Aspartate Amino Transf (AST/SGOT) 21 U/L (5-40) Alanine Aminotransferase (ALT/SGPT) 10 U/L (3-33) Alkaline Phosphatase 59 U/L (35-104) Troponin I 0.127 ng/mL (0.000-0.056) 0.117 ng/mL (0.000-0.056) Pro-B-Type Natriuretic Peptide 758 pg/mL (0-125) H Total Protein 7.0 g/dL (6.6-8.7) Albumin 4.1 g/dL (3.5-5.2) Globulin 2.9 g/dL Albumin/Globulin Ratio 1.4 (1.0-2.7) Lipase 34 U/L (< 60) CARLY CLANCY Sep 01, 2017 15:26
[2017-09-01] MEDS: Aspirin EC 81mg tab ORAL SCH (16:03)
[2017-09-01] MEDS: Heparin 25,000u/D5W 500ml 500 ML IV SCH (16:04)
[2017-09-01] MEDS ORDERED: Norco 10mg/325mg tab ORAL PRN (18:30)
[2017-09-01] MEDS ORDERED: NS 275ml ONE (18:40)
[2017-09-01] MEDS ORDERED: Tubing IV Secondary IV ONE (18:40)
[2017-09-01] MEDS: Norco 10mg/325mg tab ORAL PRN (19:55)
[2017-09-01] MEDS: Atorvastatin 80mg tab ORAL SCH (21:44)
[2017-09-02] VITALS (7 sets, daily range): BP systolic 135–164; BP diastolic 69–91
--- NOTE | 2017-09-02 02:00 | Consultation ---
DATE OF CONSULTATION: 09/01/2017 CARDIOLOGY CONSULTATION REFERRING PHYSICIAN: Amol Rose M.D. REASON FOR REFERRAL: Chest pain. History of Present Illness: This is a very unfortunate middle-aged female, who has history of coronary artery disease, coronary artery bypass graft, comes in to the hospital because of one week of not feeling well, cough, congestion, wheezing, white sputum, nausea, vomiting, diarrhea, and episodes of pain 2 or 3 different types, one in the center of the chest and the other one on the left side of the back. No relieving or exacerbating factors noted by this except for the fact that when she has vomiting, the chest pain seems to come on. She has orthopnea for 3 pillows. She does not have any PND usually, although she has had some occasionally. There is no dizziness on standing. No heart pounding or palpitation. 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 ALLERGIES: She is not allergic to any medications. Social History: She smokes half a pack a day. She does not drink alcoholic beverages. Denies any drug use. Review Of Systems: Gastrointestinal: Positive for nausea, vomiting, and diarrhea. No bloody stools. She does have some black stools after taking some Pepto-Bismol. Genitourinary: Negative. Pulmonary: Positive for coughing and wheezing. No congestion. Constitutional: She has had fevers and chills. Neurologic: Numbness and tingling in her feet. Cardiac: As mentioned in history of present illness. PHYSICAL EXAMINATION: GENERAL: Shows to be obese female, in no respiratory distress. NECK: There is no jugular venous distention. LUNGS: Do show expiratory wheezes and inspiratory wheezes. CARDIAC: Regular rhythm. No heaves, thrills, or gallops noted. ABDOMEN: Soft and nontender. Positive bowel sounds. EXTREMITIES: There is no edema, clubbing, or cyanosis. Neurologic: She is awake, alert, responsive, and in no apparent respiratory distress. Laboratory and diagnostic Values: White count of 4.9, hemoglobin 15.6, and platelet count 190,000. Sodium 132, potassium 4.6, chloride 99, bicarbonate 20, BUN of 19, creatinine 1.2, and glucose of 105. Of note, her creatinine was as high as 2.2 back in January when she was last hospitalized here, and calcium is 8.3. Two sets of cardiac enzymes were abnormal. The first one was 0.127 and the second is 0.117. This is on a new assay that the hospital is using for myocardial infarction. ProBNP was only 758 at time of her admission. At this time, her lipase is 34. Albumin was 4.1. Coags, INR of 0.9 and a PTT of 35. Her urinalysis is unremarkable. Her chest x-ray from the emergency room last night shows mild right and middle lung subsegmental atelectasis, otherwise no acute cardiopulmonary processes. The patient's electrocardiogram performed today and yesterday shows some nonspecific T-wave changes in V2, V3, V4, and V5, almost biphasic T waves in both leads. In direct comparison, in fact, those EKG changes are not new compared to January 2017 when they were present previously as well. She has had an echocardiogram performed. The preliminary report shows normal wall motion that needs to be evaluated. ASSESSMENT: 1. Atypical chest pains on two separate occasions. 2. Bronchitis/chronic obstructive pulmonary disease exacerbation. 3. Coronary artery disease history, status post coronary artery bypass grafting. 4. Abnormal cardiac enzymes. 5. Obesity. Plan: Dr. Rose, this patient was seen in cardiac consultation. The patient's electrocardiogram does not appear to be significant change. It is of note that the patient's cardiac enzymes are minimally abnormal. Based on this new assay, these cardiac enzymes are abnormal, however, they do not fall in the cut-off area of 0.6 to 1.5, which is determined to be World Health criteria for myocardial infarction and need to be followed. She is certainly at risk of having coronary events. Though the cardiac enzymes will be repeated, she will have an echocardiogram. So, I will need to review the echocardiogram and her EKG will be repeated as well. Depending on how she does with respect to the level of the cardiac enzymes whether they are persistently abnormal like this or whether they will go down in the typical pattern of the coronary event, then further evaluation may be necessary, however, that evaluation may not be possible in light of the fact that she is having chronic obstructive pulmonary disease exacerbation at the present time. Further recommendations will be provided. In the meantime, the patient should be continued on a course of statins and aspirin as well as the treatment of underlying infectious process to avoid further exacerbation of any cardiac issues. Dr. Rose, thank you for allowing me to participate in the care of this patient. Brian Aguayo M.D. DR: EDWARDO JOB#: [id number] CC:
[2017-09-02] MEDS: Norco 10mg/325mg tab ORAL PRN ×4 (05:08→19:50)
[2017-09-02] MEDS: Solu-MEDROL 125mg Inj IV SCH ×4 (05:08→23:12)
[2017-09-02] MEDS: Zoysn 3.37gm in D5W 110ml IVPB SCH ×3 (05:10→22:30)
[2017-09-02] MEDS: Heparin 25,000u/D5W 500ml 500 ML IV SCH ×4 (05:20→22:15)
[2017-09-02] MEDS ORDERED: Heparin 25,000u/D5W 500ml 500 ML IV SCH (05:45)
[2017-09-02] MEDS ORDERED: Heparin 5000 units/ml inj IV ONE (05:45)
[2017-09-02] MEDS: Theophylline ER 100mg ORAL SCH ×2 (09:59→20:33)
[2017-09-02] MEDS: Aspirin EC 81mg tab ORAL SCH (09:59)
--- NOTE | 2017-09-02 11:37 | Pulmonology Progress Note ---
Assessment/Plan Problems: (1) COPD with exacerbation (2) Bronchitis (3) NSTEMI (non-ST elevated myocardial infarction) (4) CAD (coronary artery disease) (5) Hx of CABG Assessment/Plan slightly better troponin trending down less phlegmn echo noted transfer to med/surg if ok with Dr. Aguayo Subjective ROS Limited/Unobtainable: No Constitutional: Reports: no symptoms HEENT: Repors: no symptoms Respiratory: Reports: no symptoms Allergies: Coded Allergies: No Known Allergies (Verified Allergy, Unknown, 09/05/07) Objective Last 24 Hour Vital Signs Date Time Temp Pulse Resp B/P (MAP) Pulse Ox O2 Delivery O2 Flow Rate FiO2 09/02/17 11:25 97.9 63 18 143/85 99 Nasal Cannula 2.0 09/02/17 08:07 99 Nasal Cannula 2.0 28 09/02/17 08:06 Nasal Cannula 2.0 28 09/02/17 08:00 63 09/02/17 07:50 58 16 Nasal Cannula 2.0 28 09/02/17 07:48 97.9 64 18 135/87 95 Nasal Cannula 2.0 09/02/17 04:00 99.7 78 20 139/80 94 Nasal Cannula 2.0 09/02/17 03:53 67 09/02/17 00:30 Room Air 09/02/17 00:30 Room Air 21 09/02/17 00:00 98.1 59 20 148/77 97 Nasal Cannula 2.0 09/01/17 23:37 72 09/01/17 20:54 97.3 09/01/17 20:05 67 09/01/17 20:00 97.3 65 18 148/99 95 Nasal Cannula 2.0 09/01/17 16:00 48 09/01/17 15:44 98.1 61 18 150/84 95 Nasal Cannula 2.0 09/01/17 12:00 61 09/01/17 11:54 97.9 71 18 150/90 92 Nasal Cannula 2.0 Intake and Output 09/02/17 09/03/17 19:00 07:00 Intake Total 290 ml Balance 290 ml Intake Oral 290 ml # Voids 4 General Appearance: WD/WN HEENT: normocephalic, anicteric Respiratory/Chest: chest wall non-tender, lungs clear Cardiovascular: normal peripheral pulses, normal rate Abdomen: normal bowel sounds, soft, non tender Extremities: no cyanosis, no clubbing 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 Laboratory Tests 09/01/17 15:15: Troponin I 0.079H 09/01/17 23:26: Troponin I 0.063H 09/02/17 04:20: Troponin I 0.064H, Activated Partial Thromboplast Time 63H Current Medications Medications (Trade) Dose Ordered Sig/Jose Route PRN Reason Start Time Stop Time Status Last Admin Dose Admin Acetaminophen/ Hydrocodone Bitart ([place] 10/325) 1 ea Q4H PRN ORAL Moderate Pain (Pain Scale 4-6) 09/01/17 18:30 09/08/17 18:29 09/02/17 09:59 Albuterol/ Ipratropium (DuoNeb 0.5-3(2.5)mg/3ml) 3 ml EVERY 4 HOURS PRN HHN dyspnea 09/01/17 07:30 09/06/17 07:29 Aspirin (Ecotrin) 81 mg DAILY ORAL 09/01/17 15:30 10/01/17 15:29 09/02/17 09:59 Atorvastatin Calcium (Lipitor) 40 mg QHS ORAL 09/01/17 21:00 10/01/17 20:59 09/01/17 21:44 Dextrose (Dextrose 50%) STAT PRN IV Hypoglycemia 09/01/17 07:30 10/01/17 07:29 Heparin Sodium/ Dextrose 500 ml @ 20.575 mls/ hr adjust per protocol IV 09/02/17 07:30 10/02/17 07:29 09/02/17 07:31 Ketorolac Tromethamine (Toradol 30mg) 30 mg EVERY 8 HOURS PRN IV moderate pain 4-6 09/01/17 07:30 09/06/17 07:29 Lorazepam (Ativan 2mg/ml 1ml) 0.5 mg Q4H PRN IV For Anxiety 09/01/17 07:30 09/08/17 07:29 Methylprednisolone Sodium Succinate (Solu-MEDROL) 60 mg EVERY 6 HOURS IV 09/01/17 12:00 10/01/17 11:59 09/02/17 05:08 Nitroglycerin (Ntg) 0.4 mg Q5M X 3 DOSES PRN SL Prn Chest Pain 09/01/17 07:30 10/01/17 07:29 Ondansetron HCl (Zofran) 4 mg Q6H PRN IVP Nausea & Vomiting 09/01/17 07:30 10/01/17 07:29 Piperacillin Sod/ Tazobactam Sod 3.375 gm/Dextrose 110 ml @ 27.5 mls/hr EVERY 8 HOURS IVPB 09/01/17 14:00 09/06/17 13:59 09/02/17 05:10 Promethazine HCl/ Codeine (Phenergan with Codeine) 5 ml EVERY 6 HOURS PRN ORAL cough 09/01/17 07:30 10/01/17 07:29 Temazepam (Restoril) 15 mg HSPRN PRN ORAL Insomnia 09/01/17 07:30 09/08/17 07:29 Theophylline (Cosmo-Dur) 100 mg EVERY 12 HOURS ORAL 09/01/17 09:30 10/01/17 09:29 09/02/17 09:59 MAIRA JAY Sep 02, 2017 11:37
--- NOTE | 2017-09-02 19:21 | Cardiology Progress Note ---
Assessment/Plan Assessment/Plan 1. Atypical chest pains on two separate occasions. 2. Bronchitis/chronic obstructive pulmonary disease exacerbation. 3. Coronary artery disease history, status post coronary artery bypass grafting. 4. Abnormal cardiac enzymes. 5. Obesity. min abn trop not meat criteria for mi based on WHO still with wheezes awiat echo once wheezes resolved may consider ischemia evaluation Subjective Cardiovascular: Reports: chest pain, Denies: lightheadedness Respiratory: Reports: shortness of breath Gastrointestinal/Abdominal: Reports: other - gerd sx, Denies: abdominal pain Genitourinary: Denies: burning Objective Last 24 Hour Vital Signs Date Time Temp Pulse Resp B/P (MAP) Pulse Ox O2 Delivery O2 Flow Rate FiO2 09/02/17 16:00 57 09/02/17 15:24 98.1 56 18 146/87 99 Nasal Cannula 2.0 09/02/17 12:00 61 09/02/17 11:25 97.9 63 18 143/85 99 Nasal Cannula 2.0 09/02/17 08:07 99 Nasal Cannula 2.0 28 09/02/17 08:06 Nasal Cannula 2.0 28 09/02/17 08:00 63 09/02/17 07:50 58 16 Nasal Cannula 2.0 28 09/02/17 07:48 97.9 64 18 135/87 95 Nasal Cannula 2.0 09/02/17 04:00 99.7 78 20 139/80 94 Nasal Cannula 2.0 09/02/17 03:53 67 09/02/17 00:30 Room Air 09/02/17 00:30 Room Air 21 09/02/17 00:00 98.1 59 20 148/77 97 Nasal Cannula 2.0 09/01/17 23:37 72 09/01/17 20:54 97.3 09/01/17 20:05 67 09/01/17 20:00 97.3 65 18 148/99 95 Nasal Cannula 2.0 General Appearance: no apparent distress Neck: supple Cardiovascular: normal rate, regular rhythm Respiratory/Chest: expiratory wheezing, inspiratory wheezing Abdomen: normal bowel sounds, non tender, soft Extremities: no swelling Intake and Output 09/02/17 09/03/17 19:00 07:00 Intake Total 745.408 ml Balance 745.408 ml Intake Oral 610 ml IV Total 135.408 ml # Voids 9 Laboratory Tests Test 09/01/17 23:26 09/02/17 04:20 09/02/17 13:15 Troponin I 0.063 ng/mL (0.000-0.056) 0.064 ng/mL (0.000-0.056) Activated Partial Thromboplast Time 63 SEC (23-33) H 101 SEC (23-33) H Microbiology Date/Time Source Procedure Growth Status 09/01/17 11:08 Sputum Gram Stain - Final Resulted 09/01/17 11:08 Sputum Sputum Culture Pending Resulted CARLY CLANCY Sep 02, 2017 19:21
[2017-09-02] MEDS: Atorvastatin 80mg tab ORAL SCH (20:34)
[2017-09-03] MEDS: Norco 10mg/325mg tab ORAL PRN ×4 (01:44→20:55)
[2017-09-03 05:33] LABS: MEAN CORPUSCULAR HEMOGLOBIN 30.9 PG (27.0-31.0); MEAN CORPUSCULAR HGB CONC 34.8 G/DL (32.0-36.0); MEAN CORPUSCULAR VOLUME 89 FL (80-99); PLATELET COUNT 220 K/UL (150-450); WHITE BLOOD COUNT 5.3 K/UL (4.8-10.8)
[2017-09-03] MEDS: Solu-MEDROL 125mg Inj IV SCH ×2 (05:33→12:34)
[2017-09-03] MEDS: Zoysn 3.37gm in D5W 110ml IVPB SCH ×3 (05:37→21:40)
[2017-09-03 06:06] LABS: ALANINE AMINOTRANSFERASE 17 U/L (12-78); ANION GAP 11 (5-15); ASPARTATE AMINO TRANSFERASE 19 U/L (15-37); CALCIUM 7.4 MG/DL (8.5-10.1); CARBON DIOXIDE 22 MMOL/L (21-32); CHLORIDE 98 MMOL/L (98-107); CREATININE 1.5 MG/DL (0.55-1.30); CRP QUANT < 0.2 mg/dL (< 0.90); GLOMERULAR FILTRATION RATE 42.8 mL/min (>60); MAGNESIUM 1.9 MG/DL (1.8-2.4); PHOSPHORUS 3.7 MG/DL (2.5-4.9); SODIUM 131 MMOL/L (136-145); TOTAL PROTEIN 6.8 G/DL (6.4-8.2)
[2017-09-03] MEDS ORDERED: Heparin 5000 units/ml inj IV ONE (07:15)
[2017-09-03 07:59] VITALS: BP 144/87
[2017-09-03] MEDS: Heparin 25,000u/D5W 500ml 500 ML IV SCH (08:05)
--- NOTE | 2017-09-03 08:09 | Cardiology Report ---
APPROVED REPORT EXAM: Two-dimensional and M-mode echocardiogram with Doppler and color Doppler. INDICATION Left ventricular function M-Mode DIMENSIONS IVSd0.9 (0.7-1.1cm)Left Atrium (MM)3.1 (1.6-4.0cm) LVDd5.1 (3.5-5.6cm)Aortic Root3.3 (2.0-3.7cm) PWd1.4 (0.7-1.1cm)Aortic Cusp Exc.2.0 (1.5-2.0cm) LVDs3.7 (2.5-4.0cm) PWs1.2 cm Technically difficult study due to poor acoustical windows. Normal left ventricular chamber size, systolic function and wall motion. Left ventricular ejection fraction estimated to be 55-60%. No evidence of left ventricular hypertrophy. No evidence of pericardial or pleural effusion. Right cardiac chamber sizes are within normal limits. Moderate left atrial enlargement by 2D. Focal aortic valve sclerosis with adequate cusp excursion. Thickened mitral valve leaflets with normal excursion. Thin mitral annulus and normal aortic root. Pulmonic valve not well visualized. Normal tricuspid valve structure. IVC is normal in size and collapsible with respiration. A color flow and spectral Doppler study was performed and revealed: No aortic regurgitation. Trace mitral regurgitation. Mitral diastolic velocities suggest reduced left ventricular relaxation c/w diastolic dysfunction grade 1. No tricuspid regurgitation. Pulmonic regurgitation present.
[2017-09-03] MEDS: Theophylline ER 100mg ORAL SCH ×2 (09:25→20:55)
[2017-09-03] MEDS: Aspirin EC 81mg tab ORAL SCH (09:25)
[2017-09-03 09:54] LABS: BAND NEUTROPHILS % (MANUAL) 0 % (0-8); BASOPHILS % (MANUAL) 0 % (0-2); EOSINOPHILS % (MANUAL) 0 % (0-3); LYMPHOCYTES % (MANUAL) 4 % (20-45); NEUTROPHILS % (MANUAL) 91 % (45-75); PLATELET ESTIMATE ADEQUATE; PLATELET MORPHOLOGY NORMAL; TOTAL CELLS COUNTED 100
[2017-09-03 11:09] LABS: ERYTHROCYTE SEDIMENTATION RATE 20 MM/HR (0-30)
[2017-09-03 11:47] VITALS: BP 159/82
--- NOTE | 2017-09-03 12:42 | Pulmonology Progress Note ---
Assessment/Plan Problems: (1) COPD with exacerbation (2) Bronchitis (3) NSTEMI (non-ST elevated myocardial infarction) (4) CAD (coronary artery disease) (5) Hx of CABG Assessment/Plan taper down steroids no sputum culture yet slightly better troponin trending down less phlegm echo noted, wnl transfer to med/surg if ok with Dr. Aguayo Subjective ROS Limited/Unobtainable: No Constitutional: Reports: no symptoms HEENT: Repors: no symptoms Respiratory: Reports: no symptoms Allergies: Coded Allergies: No Known Allergies (Verified Allergy, Unknown, 09/05/07) Objective Last 24 Hour Vital Signs Date Time Temp Pulse Resp B/P (MAP) Pulse Ox O2 Delivery O2 Flow Rate FiO2 09/03/17 11:47 98.2 55 18 159/82 92 Room Air 09/03/17 08:01 63 20 Room Air 21 09/03/17 08:01 93 Room Air 21 09/03/17 08:01 Room Air 21 09/03/17 08:00 63 09/03/17 07:59 97.2 63 18 144/87 93 Room Air 09/03/17 03:42 58 09/02/17 23:50 57 09/02/17 23:29 97.7 60 18 137/69 98 Nasal Cannula 09/02/17 20:11 62 09/02/17 19:38 97.7 57 18 164/91 96 Nasal Cannula 09/02/17 19:30 62 16 Nasal Cannula 2.0 28 09/02/17 19:30 Nasal Cannula 2.0 28 09/02/17 19:30 98 Nasal Cannula 2.0 28 09/02/17 16:00 57 09/02/17 15:24 98.1 56 18 146/87 99 Nasal Cannula 2.0 Intake and Output 09/03/17 09/04/17 19:00 07:00 # Bowel Movements 1 General Appearance: WD/WN HEENT: normocephalic, atraumatic Respiratory/Chest: chest wall non-tender, normal breath sounds, no respiratory distress Breasts: no masses Cardiovascular: normal peripheral pulses Abdomen: normal bowel sounds, soft, non tender Genitourinary: normal external genitalia 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 Resulted Laboratory Tests 09/02/17 13:15: Activated Partial Thromboplast Time 101H 09/02/17 20:10: Activated Partial Thromboplast Time 106H, Troponin I 0.056 09/03/17 05:10: Activated Partial Thromboplast Time 33, Troponin I 0.061H, White Blood Count 5.3 , Red Blood Count 4.50, Hemoglobin 13.9, Hematocrit 40.0, Mean Corpuscular Volume 89, Mean Corpuscular Hemoglobin 30.9, Mean Corpuscular Hemoglobin Concent 34.8, Red Cell Distribution Width 12.0, Platelet Count 220, Mean Platelet Volume 8.0, Neutrophils (%) (Auto) , Lymphocytes (%) (Auto) , Monocytes (%) (Auto) , Eosinophils (%) (Auto) , Basophils (%) (Auto) , Differential Total Cells Counted 100, Neutrophils % (Manual) 91H, Lymphocytes % (Manual) 4L, Monocytes % (Manual) 5, Eosinophils % (Manual) 0, Basophils % ( Manual) 0, Band Neutrophils 0, Platelet Estimate Adequate, Platelet Morphology Normal, Red Blood Cell Morphology Normal, Erythrocyte Sedimentation Rate 20, Sodium Level 131L, Potassium Level 4.0, Chloride Level 98, Carbon Dioxide Level 22, Anion Gap 11, Blood Urea Nitrogen 21H, Creatinine 1.5H, Estimat Glomerular Filtration Rate 42.8, Glucose Level 119H, Calcium Level 7.4L, Phosphorus Level 3.7, Magnesium Level 1.9, Total Bilirubin 0.6, Aspartate Amino Transf (AST/SGOT ) 19, Alanine Aminotransferase (ALT/SGPT) 17, Alkaline Phosphatase 51, C- Reactive Protein, Quantitative < 0.2, Total Protein 6.8, Albumin 3.4, Globulin 3.4, Albumin/Globulin Ratio 1.0 Current Medications Medications (Trade) Dose Ordered Sig/Jose Route PRN Reason Start Time Stop Time Status Last Admin Dose Admin Acetaminophen/ Hydrocodone Bitart ([place] 10/325) 1 ea Q4H PRN ORAL Moderate Pain (Pain Scale 4-6) 09/01/17 18:30 09/08/17 18:29 09/03/17 07:34 Albuterol/ Ipratropium (DuoNeb 0.5-3(2.5)mg/3ml) 3 ml EVERY 4 HOURS PRN HHN dyspnea 09/01/17 07:30 09/06/17 07:29 Aspirin (Ecotrin) 81 mg DAILY ORAL 09/01/17 15:30 10/01/17 15:29 09/03/17 09:25 Atorvastatin Calcium (Lipitor) 40 mg QHS ORAL 09/01/17 21:00 10/01/17 20:59 09/02/17 20:34 Dextrose (Dextrose 50%) STAT PRN IV Hypoglycemia 09/01/17 07:30 10/01/17 07:29 Heparin Sodium/ Dextrose 500 ml @ 18.987 mls/ hr adjust per protocol IV 09/03/17 07:15 10/03/17 07:14 09/03/17 08:05 Ketorolac Tromethamine (Toradol 30mg) 30 mg EVERY 8 HOURS PRN IV moderate pain 4-6 09/01/17 07:30 09/06/17 07:29 09/03/17 05:39 Lorazepam (Ativan 2mg/ml 1ml) 0.5 mg Q4H PRN IV For Anxiety 09/01/17 07:30 09/08/17 07:29 Methylprednisolone Sodium Succinate (Solu-MEDROL) 60 mg EVERY 6 HOURS IV 09/01/17 12:00 10/01/17 11:59 09/03/17 12:34 Nitroglycerin (Ntg) 0.4 mg Q5M X 3 DOSES PRN SL Prn Chest Pain 09/01/17 07:30 10/01/17 07:29 Ondansetron HCl (Zofran) 4 mg Q6H PRN IVP Nausea & Vomiting 09/01/17 07:30 10/01/17 07:29 Piperacillin Sod/ Tazobactam Sod 3.375 gm/Dextrose 110 ml @ 27.5 mls/hr EVERY 8 HOURS IVPB 09/01/17 14:00 09/06/17 13:59 09/03/17 05:37 Promethazine HCl/ Codeine (Phenergan with Codeine) 5 ml EVERY 6 HOURS PRN ORAL cough 09/01/17 07:30 10/01/17 07:29 Temazepam (Restoril) 15 mg HSPRN PRN ORAL Insomnia 09/01/17 07:30 09/08/17 07:29 09/02/17 20:34 Theophylline (Cosmo-Dur) 100 mg EVERY 12 HOURS ORAL 09/01/17 09:30 10/01/17 09:29 09/03/17 09:25 MAIRA JAY Sep 03, 2017 12:42
[2017-09-03 16:48] VITALS: BP 174/88
--- NOTE | 2017-09-03 19:16 | Cardiology Progress Note ---
Assessment/Plan Assessment/Plan 1. Atypical chest pains on two separate occasions. 2. Bronchitis/chronic obstructive pulmonary disease exacerbation. 3. Coronary artery disease history, status post coronary artery bypass grafting. 4. Abnormal cardiac enzymes. 5. Obesity. min abn trop not meat criteria for mi based on WHO and no peak nor gonzález noted still with wheezes echo noted normal wall motion once wheezes resolved may consider ischemia evaluation Subjective Cardiovascular: Reports: lightheadedness, Denies: chest pain Respiratory: Reports: shortness of breath Gastrointestinal/Abdominal: Denies: abdominal pain Genitourinary: Denies: burning Objective Last 24 Hour Vital Signs Date Time Temp Pulse Resp B/P (MAP) Pulse Ox O2 Delivery O2 Flow Rate FiO2 09/03/17 16:48 97.6 50 18 174/88 94 Room Air 09/03/17 16:00 53 09/03/17 12:00 52 09/03/17 11:47 98.2 55 18 159/82 92 Room Air 09/03/17 08:01 63 20 Room Air 21 09/03/17 08:01 93 Room Air 21 09/03/17 08:01 Room Air 21 09/03/17 08:00 63 09/03/17 07:59 97.2 63 18 144/87 93 Room Air 09/03/17 03:42 58 09/02/17 23:50 57 09/02/17 23:29 97.7 60 18 137/69 98 Nasal Cannula 09/02/17 20:11 62 09/02/17 19:38 97.7 57 18 164/91 96 Nasal Cannula 09/02/17 19:30 62 16 Nasal Cannula 2.0 28 09/02/17 19:30 Nasal Cannula 2.0 28 09/02/17 19:30 98 Nasal Cannula 2.0 28 General Appearance: alert Neck: no JVD Cardiovascular: normal rate, regular rhythm Respiratory/Chest: rhonchi - bilaterally, expiratory wheezing Abdomen: normal bowel sounds, non tender, soft Extremities: no swelling Intake and Output 09/03/17 09/04/17 19:00 07:00 Intake Total 1019.870 ml Balance 1019.870 ml Intake Oral 720 ml IV Total 299.870 ml # Voids 4 # Bowel Movements 2 Laboratory Tests Test 09/02/17 20:10 09/03/17 05:10 10/9/17 14:00 Activated Partial Thromboplast Time 106 SEC (23-33) H 33 SEC (23-33) 71 SEC (23-33) H Troponin I 0.056 ng/mL (0.000-0.056) 0.061 ng/mL (0.000-0.056) White Blood Count 5.3 K/UL (4.8-10.8) Red Blood Count 4.50 M/UL (4.20-5.40) Hemoglobin 13.9 G/DL (12.0-16.0) Hematocrit 40.0 % (37.0-47.0) Mean Corpuscular Volume 89 FL (80-99) Mean Corpuscular Hemoglobin 30.9 PG (27.0-31.0) Mean Corpuscular Hemoglobin Concent 34.8 G/DL (32.0-36.0) Red Cell Distribution Width 12.0 % (11.6-14.8) Platelet Count 220 K/UL (150-450) Mean Platelet Volume 8.0 FL (6.5-10.1) Neutrophils (%) (Auto) % (45.0-75.0) Lymphocytes (%) (Auto) % (20.0-45.0) Monocytes (%) (Auto) % (1.0-10.0) Eosinophils (%) (Auto) % (0.0-3.0) Basophils (%) (Auto) % (0.0-2.0) Differential Total Cells Counted 100 Neutrophils % (Manual) 91 % (45-75) H Lymphocytes % (Manual) 4 % (20-45) L Monocytes % (Manual) 5 % (1-10) Eosinophils % (Manual) 0 % (0-3) Basophils % (Manual) 0 % (0-2) Band Neutrophils 0 % (0-8) Platelet Estimate Adequate Platelet Morphology Normal Red Blood Cell Morphology Normal Erythrocyte Sedimentation Rate 20 MM/HR (0-30) Sodium Level 131 MMOL/L (136-145) L Potassium Level 4.0 MMOL/L (3.5-5.1) Chloride Level 98 MMOL/L (98-107) Carbon Dioxide Level 22 MMOL/L (21-32) Anion Gap 11 (5-15) Blood Urea Nitrogen 21 mg/dL (7-18) H Creatinine 1.5 MG/DL (0.55-1.30) H Estimat Glomerular Filtration Rate 42.8 mL/min (>60) Glucose Level 119 MG/DL (74-106) H Calcium Level 7.4 MG/DL (8.5-10.1) L Phosphorus Level 3.7 MG/DL (2.5-4.9) Magnesium Level 1.9 MG/DL (1.8-2.4) Total Bilirubin 0.6 MG/DL (0.2-1.0) Aspartate Amino Transf (AST/SGOT) 19 U/L (15-37) Alanine Aminotransferase (ALT/SGPT) 17 U/L (12-78) Alkaline Phosphatase 51 U/L (46-116) C-Reactive Protein, Quantitative < 0.2 mg/dL (< 0.90) Total Protein 6.8 G/DL (6.4-8.2) Albumin 3.4 G/DL (3.4-5.0) Globulin 3.4 g/dL Albumin/Globulin Ratio 1.0 (1.0-2.7) Microbiology Date/Time Source Procedure Growth Status 09/01/17 11:08 Sputum Gram Stain - Final Resulted 09/01/17 11:08 Sputum Sputum Culture - Preliminary NORMAL UPPER RESPIRATORY MINAL AT 24 ... Resulted CARLY CLANCY Sep 03, 2017 19:16
[2017-09-03 20:00] VITALS: BP 147/72
[2017-09-03] MEDS: Atorvastatin 80mg tab ORAL SCH (20:55)
[2017-09-04] VITALS: BP 148/85
[2017-09-04] MEDS: Norco 10mg/325mg tab ORAL PRN ×4 (03:41→21:29)
[2017-09-04 04:00] VITALS: BP 154/82
[2017-09-04] MEDS: Zoysn 3.37gm in D5W 110ml IVPB SCH ×3 (05:03→21:29)
[2017-09-04 08:06] LABS: BASOPHILS % (AUTO) 0.1 % (0.0-2.0); LYMPHOCYTES % (AUTO) 18.7 % (20.0-45.0); MEAN CORPUSCULAR HEMOGLOBIN 30.6 PG (27.0-31.0); MEAN CORPUSCULAR HGB CONC 34.7 G/DL (32.0-36.0); MEAN CORPUSCULAR VOLUME 88 FL (80-99); MEAN PLATELET VOLUME 8.5 FL (6.5-10.1); MONOCYTES % (AUTO) 6.5 % (1.0-10.0); NEUTROPHILS % (AUTO) 74.6 % (45.0-75.0); PLATELET COUNT 247 K/UL (150-450); RED BLOOD COUNT 4.88 M/UL (4.20-5.40); RED CELL DISTRIBUTION WIDTH 11.9 % (11.6-14.8); WHITE BLOOD COUNT 8.2 K/UL (4.8-10.8)
[2017-09-04] MEDS: Aspirin EC 81mg tab ORAL SCH (08:08)
[2017-09-04] MEDS: Promethazine/Codeine 5ml UD ORAL PRN (08:08)
[2017-09-04] MEDS: Theophylline ER 100mg ORAL SCH ×2 (08:09→21:28)
--- NOTE | 2017-09-04 08:09 | Cardiology Report ---
APPROVED REPORT EKG Measurement Heart [id number] Sinus bradycardia Abnormal ECG
[2017-09-04 08:35] LABS: ALANINE AMINOTRANSFERASE 21 U/L (12-78); ALBUMIN/GLOBULIN RATIO 0.9 (1.0-2.7); ANION GAP 14 (5-15); ASPARTATE AMINO TRANSFERASE 22 U/L (15-37); CALCIUM 7.5 MG/DL (8.5-10.1); CARBON DIOXIDE 21 MMOL/L (21-32); CHLORIDE 102 MMOL/L (98-107); CREATININE 1.7 MG/DL (0.55-1.30); GLOMERULAR FILTRATION RATE 37.1 mL/min (>60); POTASSIUM 3.4 MMOL/L (3.5-5.1); SODIUM 137 MMOL/L (136-145)
[2017-09-04 08:41] VITALS: BP 116/79
[2017-09-04] MEDS ORDERED: Solu-MEDROL 125mg Inj IV SCH (09:00)
--- NOTE | 2017-09-04 11:36 | Pulmonology Progress Note ---
Assessment/Plan Problems: (1) COPD with exacerbation (2) Bronchitis (3) NSTEMI (non-ST elevated myocardial infarction) (4) CAD (coronary artery disease) (5) Hx of CABG Assessment/Plan taper down steroids, change to PO no sputum culture yet slightly better troponin trending down less phlegm echo noted, wnl Dr. Aguayo will decide about stress testing Subjective ROS Limited/Unobtainable: No Constitutional: Reports: no symptoms HEENT: Repors: no symptoms Respiratory: Reports: no symptoms Allergies: Coded Allergies: No Known Allergies (Verified Allergy, Unknown, 09/05/07) Objective Last 24 Hour Vital Signs Date Time Temp Pulse Resp B/P (MAP) Pulse Ox O2 Delivery O2 Flow Rate FiO2 09/04/17 08:41 98.1 69 19 116/79 95 Room Air 09/04/17 08:00 73 09/04/17 07:16 68 18 Room Air 21 09/04/17 07:16 Room Air 21 09/04/17 07:16 94 Room Air 21 09/04/17 04:40 98.1 09/04/17 04:00 53 09/04/17 04:00 98.1 61 20 154/82 96 Room Air 09/04/17 00:00 52 09/04/17 00:00 98.2 51 20 148/85 98 Room Air 09/03/17 20:00 98.2 55 20 147/72 96 Room Air 09/03/17 20:00 54 09/03/17 19:30 95 Room Air 21 09/03/17 19:30 58 16 Room Air 21 09/03/17 19:30 Room Air 21 09/03/17 16:48 97.6 50 18 174/88 94 Room Air 09/03/17 16:00 53 09/03/17 12:00 52 09/03/17 11:47 98.2 55 18 159/82 92 Room Air General Appearance: WD/WN HEENT: normocephalic, atraumatic Respiratory/Chest: chest wall non-tender, lungs clear Cardiovascular: normal peripheral pulses, normal rate Abdomen: normal bowel sounds, soft, non tender Extremities: no clubbing Neurologic/Psychiatric: marking stitcher II-XII grossly normal Lymphatic: no neck adenopathy Laboratory Tests 09/03/17 14:00: Activated Partial Thromboplast Time 71H 09/04/17 07:35: Activated Partial Thromboplast Time 65H, White Blood Count 8.2#, Red Blood Count 4.88, Hemoglobin 14.9, Hematocrit 43.0, Mean Corpuscular Volume 88, Mean Corpuscular Hemoglobin 30.6, Mean Corpuscular Hemoglobin Concent 34.7, Red Cell Distribution Width 11.9, Platelet Count 247, Mean Platelet Volume 8.5, Neutrophils (%) (Auto) 74.6, Lymphocytes (%) (Auto) 18.7L, Monocytes (%) (Auto) 6.5, Eosinophils (%) (Auto) 0.0, Basophils (%) (Auto) 0.1, Sodium Level 137, Potassium Level 3.4L, Chloride Level 102, Carbon Dioxide Level 21, Anion Gap 14 , Blood Urea Nitrogen 25H, Creatinine 1.7H, Estimat Glomerular Filtration Rate 37.1, Glucose Level 94, Calcium Level 7.5L, Total Bilirubin 0.5, Aspartate Amino Transf (AST/SGOT) 22, Alanine Aminotransferase (ALT/SGPT) 21, Alkaline Phosphatase 49, Total Protein 7.0, Albumin 3.4, Globulin 3.6, Albumin/Globulin Ratio 0.9L Current Medications Medications (Trade) Dose Ordered Sig/Jose Route PRN Reason Start Time Stop Time Status Last Admin Dose Admin Acetaminophen/ Hydrocodone Bitart ([place] 10/325) 1 ea Q4H PRN ORAL Moderate Pain (Pain Scale 4-6) 09/01/17 18:30 09/08/17 18:29 09/04/17 08:08 Albuterol/ Ipratropium (DuoNeb 0.5-3(2.5)mg/3ml) 3 ml EVERY 4 HOURS PRN HHN dyspnea 09/01/17 07:30 09/06/17 07:29 Aspirin (Ecotrin) 81 mg DAILY ORAL 09/01/17 15:30 10/01/17 15:29 09/04/17 08:08 Atorvastatin Calcium (Lipitor) 40 mg QHS ORAL 09/01/17 21:00 10/01/17 20:59 09/03/17 20:55 Clonidine HCl (Catapres) 0.1 mg Q6H PRN ORAL For High Blood Pressure 09/03/17 19:45 10/03/17 19:44 Dextrose (Dextrose 50%) STAT PRN IV Hypoglycemia 09/01/17 07:30 10/01/17 07:29 Heparin Sodium/ Dextrose 500 ml @ 18.987 mls/ hr adjust per protocol IV 09/03/17 07:15 10/03/17 07:14 09/03/17 08:05 Ketorolac Tromethamine (Toradol 30mg) 30 mg EVERY 8 HOURS PRN IV moderate pain 4-6 09/01/17 07:30 09/06/17 07:29 09/03/17 05:39 Lorazepam (Ativan 2mg/ml 1ml) 0.5 mg Q4H PRN IV For Anxiety 09/01/17 07:30 09/08/17 07:29 Methylprednisolone Sodium Succinate (Solu-MEDROL) 60 mg DAILY IV 09/04/17 09:00 10/01/17 11:59 09/04/17 08:08 Nitroglycerin (Ntg) 0.4 mg Q5M X 3 DOSES PRN SL Prn Chest Pain 09/01/17 07:30 10/01/17 07:29 Ondansetron HCl (Zofran) 4 mg Q6H PRN IVP Nausea & Vomiting 09/01/17 07:30 10/01/17 07:29 Piperacillin Sod/ Tazobactam Sod 3.375 gm/Dextrose 110 ml @ 27.5 mls/hr EVERY 8 HOURS IVPB 09/01/17 14:00 09/06/17 13:59 09/04/17 05:03 Promethazine HCl/ Codeine (Phenergan with Codeine) 5 ml EVERY 6 HOURS PRN ORAL cough 09/01/17 07:30 10/01/17 07:29 09/04/17 08:08 Temazepam (Restoril) 15 mg HSPRN PRN ORAL Insomnia 09/01/17 07:30 09/08/17 07:29 09/02/17 20:34 Theophylline (Cosmo-Dur) 100 mg EVERY 12 HOURS ORAL 09/01/17 09:30 10/01/17 09:29 09/04/17 08:09 MAIRA JAY Sep 04, 2017 11:36
[2017-09-04 11:45] VITALS: BP 131/61
--- NOTE | 2017-09-04 13:37 | Cardiology Progress Note ---
Assessment/Plan Assessment/Plan 1. Atypical chest pains on two separate occasions. 2. Bronchitis/chronic obstructive pulmonary disease exacerbation. 3. Coronary artery disease history, status post coronary artery bypass grafting. 4. Abnormal cardiac enzymes. 5. Obesity. min abn trop not meat criteria for mi based on WHO and no peak nor gonzález noted still with wheezes but less echo noted normal wall motion once wheezes resolved may consider ischemia evaluation she is not able to walk on a treadmill will need adenosine cardiolites but when pulm gonsales is better and now wheezing walk in [facility] ecotrin no heavy exertional activitiy until has stress test fu with pmd to er if has prolinged cp ihave explained allto pt Subjective Cardiovascular: Denies: chest pain, lightheadedness, palpitations Respiratory: Reports: shortness of breath - is better Gastrointestinal/Abdominal: Denies: abdominal pain Genitourinary: Denies: burning Objective Last 24 Hour Vital Signs Date Time Temp Pulse Resp B/P (MAP) Pulse Ox O2 Delivery O2 Flow Rate FiO2 09/04/17 11:45 98.1 49 19 131/61 97 Room Air 09/04/17 08:41 98.1 69 19 116/79 95 Room Air 09/04/17 08:00 73 09/04/17 07:16 68 18 Room Air 21 09/04/17 07:16 Room Air 21 09/04/17 07:16 94 Room Air 21 09/04/17 04:40 98.1 09/04/17 04:00 53 09/04/17 04:00 98.1 61 20 154/82 96 Room Air 09/04/17 00:00 52 09/04/17 00:00 98.2 51 20 148/85 98 Room Air 09/03/17 20:00 98.2 55 20 147/72 96 Room Air 09/03/17 20:00 54 09/03/17 19:30 95 Room Air 21 09/03/17 19:30 58 16 Room Air 21 09/03/17 19:30 Room Air 21 09/03/17 16:48 97.6 50 18 174/88 94 Room Air 09/03/17 16:00 53 General Appearance: no apparent distress, alert Neck: supple Cardiovascular: normal rate, regular rhythm Respiratory/Chest: expiratory wheezing, inspiratory wheezing - min Abdomen: non tender, soft Extremities: no swelling Laboratory Tests Test 09/03/17 14:00 09/04/17 07:35 Activated Partial Thromboplast Time 71 SEC (23-33) H 65 SEC (23-33) H White Blood Count 8.2 K/UL (4.8-10.8) # Red Blood Count 4.88 M/UL (4.20-5.40) Hemoglobin 14.9 G/DL (12.0-16.0) Hematocrit 43.0 % (37.0-47.0) Mean Corpuscular Volume 88 FL (80-99) Mean Corpuscular Hemoglobin 30.6 PG (27.0-31.0) Mean Corpuscular Hemoglobin Concent 34.7 G/DL (32.0-36.0) Red Cell Distribution Width 11.9 % (11.6-14.8) Platelet Count 247 K/UL (150-450) Mean Platelet Volume 8.5 FL (6.5-10.1) Neutrophils (%) (Auto) 74.6 % (45.0-75.0) Lymphocytes (%) (Auto) 18.7 % (20.0-45.0) L Monocytes (%) (Auto) 6.5 % (1.0-10.0) Eosinophils (%) (Auto) 0.0 % (0.0-3.0) Basophils (%) (Auto) 0.1 % (0.0-2.0) Sodium Level 137 MMOL/L (136-145) Potassium Level 3.4 MMOL/L (3.5-5.1) L Chloride Level 102 MMOL/L (98-107) Carbon Dioxide Level 21 MMOL/L (21-32) Anion Gap 14 (5-15) Blood Urea Nitrogen 25 mg/dL (7-18) H Creatinine 1.7 MG/DL (0.55-1.30) H Estimat Glomerular Filtration Rate 37.1 mL/min (>60) Glucose Level 94 MG/DL (74-106) Calcium Level 7.5 MG/DL (8.5-10.1) L Total Bilirubin 0.5 MG/DL (0.2-1.0) Aspartate Amino Transf (AST/SGOT) 22 U/L (15-37) Alanine Aminotransferase (ALT/SGPT) 21 U/L (12-78) Alkaline Phosphatase 49 U/L (46-116) Total Protein 7.0 G/DL (6.4-8.2) Albumin 3.4 G/DL (3.4-5.0) Globulin 3.6 g/dL Albumin/Globulin Ratio 0.9 (1.0-2.7) CARLY REICH Sep 04, 2017 13:37
[2017-09-04] MEDS: Heparin 25,000u/D5W 500ml 500 ML IV SCH (15:24)
[2017-09-04 16:00] VITALS: BP 140/78
[2017-09-04 20:00] VITALS: BP_SYST 121; BP_SYST 125; BP_DIAS 79; BP_DIAS 88
[2017-09-04] MEDS: Atorvastatin 80mg tab ORAL SCH (21:34)
[2017-09-05 00:45] VITALS: BP 156/88
[2017-09-05 04:00] VITALS: BP 137/92
[2017-09-05] MEDS: Norco 10mg/325mg tab ORAL PRN (04:33)
[2017-09-05] MEDS ORDERED: Heparin 5000 units/ml inj IV ONE (05:45)
[2017-09-05] MEDS ORDERED: Heparin 25,000u/D5W 500ml 500 ML IV SCH ×2 (05:45→12:50)
[2017-09-05] MEDS: Zoysn 3.37gm in D5W 110ml IVPB SCH (05:48)
[2017-09-05] MEDS: Aspirin EC 81mg tab ORAL SCH (08:26)
[2017-09-05] MEDS: Theophylline ER 100mg ORAL SCH (08:27)
[2017-09-05] MEDS: Promethazine/Codeine 5ml UD ORAL PRN (08:30)
[2017-09-05 08:31] VITALS: BP 128/84
[2017-09-05 09:41] LABS: BASOPHILS % (AUTO) 0.4 % (0.0-2.0); EOSINOPHILS % (AUTO) 0.1 % (0.0-3.0); LYMPHOCYTES % (AUTO) 25.7 % (20.0-45.0); MEAN CORPUSCULAR HGB CONC 33.8 G/DL (32.0-36.0); MEAN CORPUSCULAR VOLUME 89 FL (80-99); MEAN PLATELET VOLUME 7.7 FL (6.5-10.1); MONOCYTES % (AUTO) 8.2 % (1.0-10.0); NEUTROPHILS % (AUTO) 65.6 % (45.0-75.0); PLATELET COUNT 258 K/UL (150-450); RED BLOOD COUNT 4.95 M/UL (4.20-5.40); RED CELL DISTRIBUTION WIDTH 12.2 % (11.6-14.8); WHITE BLOOD COUNT 10.6 K/UL (4.8-10.8)
[2017-09-05 09:56] LABS: ALANINE AMINOTRANSFERASE 46 U/L (12-78); ALBUMIN/GLOBULIN RATIO 0.9 (1.0-2.7); ANION GAP 10 (5-15); ASPARTATE AMINO TRANSFERASE 40 U/L (15-37); CALCIUM 7.5 MG/DL (8.5-10.1); CARBON DIOXIDE 25 MMOL/L (21-32); CHLORIDE 97 MMOL/L (98-107); CREATININE 1.8 MG/DL (0.55-1.30); GLOMERULAR FILTRATION RATE 34.7 mL/min (>60); POTASSIUM 3.3 MMOL/L (3.5-5.1); SODIUM 132 MMOL/L (136-145); TOTAL PROTEIN 6.7 G/DL (6.4-8.2)
[2017-09-05 11:38] VITALS: BP 131/95
--- NOTE | 2017-09-05 13:26 | Pulmonology Progress Note ---
Assessment/Plan Problems: (1) COPD with exacerbation (2) Bronchitis (3) NSTEMI (non-ST elevated myocardial infarction) (4) CAD (coronary artery disease) (5) Hx of CABG Assessment/Plan imprroving no sputum culture yet slightly better echo noted, wnl pt will have cardiac stress testing as outpatint. Pt's primary physician Christopher Kline informed. Subjective ROS Limited/Unobtainable: No Constitutional: Reports: no symptoms HEENT: Repors: no symptoms Respiratory: Reports: no symptoms Allergies: Coded Allergies: No Known Allergies (Verified Allergy, Unknown, 09/05/07) Objective Last 24 Hour Vital Signs Date Time Temp Pulse Resp B/P (MAP) Pulse Ox O2 Delivery O2 Flow Rate FiO2 09/05/17 11:38 98.2 73 18 131/95 97 Room Air 09/05/17 08:31 97.9 74 18 128/84 98 Room Air 09/05/17 08:00 96 09/05/17 07:10 Room Air 21 09/05/17 07:10 96 Room Air 21 09/05/17 07:10 67 18 Room Air 21 09/05/17 04:06 60 09/05/17 04:00 98.1 67 20 137/92 96 Room Air 09/05/17 00:45 98.1 55 20 156/88 95 Room Air 09/04/17 23:55 56 09/04/17 20:03 55 09/04/17 20:00 98.2 72 20 125/88 97 Room Air 09/04/17 19:30 Room Air 21 09/04/17 19:30 70 18 Room Air 21 09/04/17 19:30 95 Room Air 21 09/04/17 16:00 63 09/04/17 16:00 98.1 59 18 140/78 95 Room Air Intake and Output 09/05/17 09/06/17 19:00 07:00 Intake Total 120 ml Balance 120 ml Intake Oral 120 ml # Voids 1 General Appearance: WD/WN HEENT: normocephalic Respiratory/Chest: chest wall non-tender, lungs clear Breasts: no masses Cardiovascular: normal peripheral pulses Abdomen: normal bowel sounds, non distended Genitourinary: normal external genitalia Skin: no rash Laboratory Tests 09/05/17 04:15: Activated Partial Thromboplast Time 50H 09/05/17 09:00: White Blood Count 10.6, Red Blood Count 4.95, Hemoglobin 14.8, Hematocrit 44.0, Mean Corpuscular Volume 89, Mean Corpuscular Hemoglobin 30.0, Mean Corpuscular Hemoglobin Concent 33.8, Red Cell Distribution Width 12.2, Platelet Count 258, Mean Platelet Volume 7.7, Neutrophils (%) (Auto) 65.6, Lymphocytes (%) (Auto) 25.7, Monocytes (%) (Auto) 8.2, Eosinophils (%) (Auto) 0.1, Basophils (%) (Auto ) 0.4, Sodium Level 132L, Potassium Level 3.3L, Chloride Level 97L, Carbon Dioxide Level 25, Anion Gap 10, Blood Urea Nitrogen 24H, Creatinine 1.8H, Estimat Glomerular Filtration Rate 34.7, Glucose Level 128H, Calcium Level 7.5L , Total Bilirubin 0.5, Aspartate Amino Transf (AST/SGOT) 40H, Alanine Aminotransferase (ALT/SGPT) 46, Alkaline Phosphatase 45L, Total Protein 6.7, Albumin 3.1L, Globulin 3.6, Albumin/Globulin Ratio 0.9L 09/05/17 10:45: Activated Partial Thromboplast Time > 150*H Current Medications Medications (Trade) Dose Ordered Sig/Jose Route PRN Reason Start Time Stop Time Status Last Admin Dose Admin Acetaminophen/ Hydrocodone Bitart ([place] 10/325) 1 ea Q4H PRN ORAL Moderate Pain (Pain Scale 4-6) 09/01/17 18:30 09/08/17 18:29 09/05/17 04:33 Albuterol/ Ipratropium (DuoNeb 0.5-3(2.5)mg/3ml) 3 ml EVERY 4 HOURS PRN HHN dyspnea 09/01/17 07:30 09/06/17 07:29 Aspirin (Ecotrin) 81 mg DAILY ORAL 09/01/17 15:30 10/01/17 15:29 09/05/17 08:26 Atorvastatin Calcium (Lipitor) 40 mg QHS ORAL 09/01/17 21:00 10/01/17 20:59 09/04/17 21:34 Clonidine HCl (Catapres) 0.1 mg Q6H PRN ORAL For High Blood Pressure 09/03/17 19:45 10/03/17 19:44 Dextrose (Dextrose 50%) STAT PRN IV Hypoglycemia 09/01/17 07:30 10/01/17 07:29 Heparin Sodium/ Dextrose 500 ml @ 18.987 mls/ hr adjust per protocol IV 09/05/17 12:50 10/05/17 12:49 Ketorolac Tromethamine (Toradol 30mg) 30 mg EVERY 8 HOURS PRN IV moderate pain 4-6 09/01/17 07:30 09/06/17 07:29 09/03/17 05:39 Lorazepam (Ativan 2mg/ml 1ml) 0.5 mg Q4H PRN IV For Anxiety 09/01/17 07:30 09/08/17 07:29 Nitroglycerin (Ntg) 0.4 mg Q5M X 3 DOSES PRN SL Prn Chest Pain 09/01/17 07:30 10/01/17 07:29 Ondansetron HCl (Zofran) 4 mg Q6H PRN IVP Nausea & Vomiting 09/01/17 07:30 10/01/17 07:29 Piperacillin Sod/ Tazobactam Sod 3.375 gm/Dextrose 110 ml @ 27.5 mls/hr EVERY 8 HOURS IVPB 09/01/17 14:00 09/06/17 23:59 09/05/17 05:48 Prednisone (predniSONE) 40 mg DAILY ORAL 09/05/17 09:00 10/05/17 08:59 09/05/17 08:27 Promethazine HCl/ Codeine (Phenergan with Codeine) 5 ml EVERY 6 HOURS PRN ORAL cough 09/01/17 07:30 10/01/17 07:29 09/05/17 08:30 Temazepam (Restoril) 15 mg HSPRN PRN ORAL Insomnia 09/01/17 07:30 09/08/17 07:29 09/02/17 20:34 Theophylline (Cosmo-Dur) 100 mg EVERY 12 HOURS ORAL 09/01/17 09:30 10/01/17 09:29 09/05/17 08:27 MAIRA JAY Sep 05, 2017 13:26
[2017-09-05] MEDS ORDERED: NS 275ml ONE (13:59)
--- NOTE | 2017-09-06 15:25 | Discharge Summary ---
Discharge Summary Hospital Course Date of Admission Sep 01, 2017 at 03:00 Date of Discharge Sep 05, 2017 at 14:00 Admitting Diagnosis copd exacerbation/dehydration HPI Tyrone Brunson is a 62 year old female who was admitted on Sep 01, 2017 at 03:00 for Chronic Obstructive Pulmonary Disease Exacerbation Hospital Course [id number] Discharge Discharge Disposition Patient was discharged to Home (01) Discharge Diagnoses: Margarita Kang NP Sep 06, 2017 15:25
--- NOTE | 2017-09-06 23:09 | Cardiology Report ---
APPROVED REPORT EKG Measurement Heart [id number] MS [id number] Normal sinus rhythm with sinus arrhythmia Possible Left atrial enlargement Nonspecific ST and T wave abnormality Abnormal ECG
--- NOTE | 2017-09-07 07:02 | Discharge Summary 2 SIG ---
DATE OF ADMISSION: 09/01/2017 DATE OF DISCHARGE: 09/05/2017 TICKET PRINTER AND TAGGER: Brian Aguayo M.D. BRIEF HOSPITAL COURSE: The patient is a 62-year-old female with a smoking history, hypertension, coronary artery disease, coronary artery bypass graft, presented to [facility] [place] complaining of productive cough with shortness of breath and wheezing for two to three days. She also complained of one week watery diarrhea and been having bilateral abdominal pain without any nausea or vomiting. On evaluation at ED, the patient was tachypneic and hypoxic on room air. She was given DuoNebs and IV steroid. She had persistent wheezing and was given azithromycin. Blood work showed elevated troponin. She was started on heparin drip. Chest x-ray done showed no acute cardiopulmonary disease. She was admitted to telemetry for elevated troponin and COPD exacerbation. She was started on IV steroids and Zosyn. She underwent cardiac evaluation. The patient's EKG showed nonspecific T-wave changes in leads V2, V3, V4, and V5 and almost biphasic T-waves in both leads. In direct comparison with EKG in January 2017, EKG changes were not new. An echocardiogram done showed ejection fraction of 55% to 60% with normal left ventricular size, function, and wall motion. There was no aortic regurgitation. The patient had minimal abnormal elevated troponin, however, does not meet criteria for myocardial infarction based on WHO, as there was no peak and no gonzález noted. The patient was still wheezing and unable to walk on a treadmill. She will eventually need adenosine Cardiolite, but can be done when pulmonary status is better. She was advised to take aspirin. Advised no heavy exertional activity until stress test was done. She was advised to present to ED if with prolonged chest pain. The patient was eventually discharged. FINAL DIAGNOSES: 1. Acute chronic obstructive pulmonary disease exacerbation. 2. Bronchitis. 3. Non-ST elevated myocardial infarction. 4. Coronary artery disease. 5. History of coronary artery bypass graft. 6. Obesity. DISPOSITION: The patient was discharged home. DISCHARGE MEDICATIONS: Refer to medication list. FOLLOWUP: The patient was advised to follow up with primary physician, Dr. Christopher Briones, will need outpatient stress testing done. Amol Rose M.D. I have been assigned to dictate discharge summary on this account and I was not involved in the patient's management. Margarita Kang N.P. DR: ARNALDO JOB#: [id number] CC: SOPHIA
== END 2017-09-05 14:00 | disposition home or self-care (01) | DRG 192 ==
LOC: EMR 02:00 → 2E 03:00 → EDBEDREQ 05:56
DX: J44.1 Chronic obstructive pulmonary disease with (acute) exacerbation (principal); E88.09 Other disorders of plasma-protein metabolism, not elsewhere classified; I10 Essential (primary) hypertension; I25.10 Atherosclerotic heart disease of native coronary artery without angina pectoris; R94.31 Abnormal electrocardiogram [ECG] [EKG]; I25.2 Old myocardial infarction; M19.90 Unspecified osteoarthritis, unspecified site; E03.9 Hypothyroidism, unspecified; E78.5 Hyperlipidemia, unspecified; F17.210 Nicotine dependence, cigarettes, uncomplicated; R09.02 Hypoxemia; E66.9 Obesity, unspecified; Z68.26 Body mass index [BMI] 26.0-26.9, adult; Z79.82 Long term (current) use of aspirin; Z87.891 Personal history of nicotine dependence; Z95.1 Presence of aortocoronary bypass graft
CPT/HCPCS: 36415; 71010; 80053; 81003; 83690; 83735; 83880; 84100; 84484; 85007; 85025; 85610; 85651; 85730; 86140; 87070; 87205; 93005; 93306; 94640; 94664; 94760; 99291; J2405

== ENCOUNTER 2020-04-10 07:06 | Emergency (ER) | payer MEDICARE, MEDICAID ==
[~2020-04-10] VITALS: Ht 167.6 cm; Wt 81.6 kg
[2020-04-10 07:20] VITALS: BP 95/113
[2020-04-10] MEDS ORDERED: Ketorolac 30mg Inj IV ONE (07:30)
[2020-04-10] MEDS ORDERED: Omnipaque-300 100ml vial INJ PRN (07:30)
--- NOTE | 2020-04-10 07:30 | NUR ---
ED Nurse Note: Patient walked into ED from home c/o 07/05 right lower abdomen pain x 7 days. Patient states th epain radiates to her right lower back and worsens with activity. Patient denies any recent falls or injuries. Patient AxO x 4, on the cardiac technologist. 20 g IV started in right AC. Blood and urine sent to lab. Consent for CT with contrast signed.
[2020-04-10] MEDS ORDERED: Hydromorphone 0.5mg/0.5ml inj IVP ONE (07:45)
[2020-04-10 07:58] LABS: APPEARANCE,URINE CLEAR; BASOPHILS % (AUTO) 0.4 % (0.0-2.0); BILIRUBIN, URINE NEGATIVE (NEGATIVE); COLOR,URINE PALE YELLOW; EOSINOPHILS % (AUTO) 0.4 % (0.0-3.0); GLUCOSE, URINE (UA) NEGATIVE (NEGATIVE); HEMATOCRIT 45.7 % (37.0-47.0); HEMOGLOBIN 15.6 G/DL (12.0-16.0); KETONES,URINE NEGATIVE (NEGATIVE); LEUKOCYTE ESTERASE ,URINE NEGATIVE (NEGATIVE); LYMPHOCYTES % (AUTO) 15.2 % (20.0-45.0); MEAN CORPUSCULAR VOLUME 89 FL (80-99); MONOCYTES % (AUTO) 4.1 % (1.0-10.0); NITRITE,URINE NEGATIVE (NEGATIVE); PH,URINE 7 (4.5-8.0); PLATELET COUNT 221 K/UL (150-450); PROTEIN,URINE 4+ (NEGATIVE); RED BLOOD COUNT 5.11 M/UL (4.20-5.40); RED CELL DISTRIBUTION WIDTH 12.5 % (11.6-14.8); UROBILINOGEN,URINE NORMAL MG/DL (0.0-1.0); WHITE BLOOD COUNT 7.3 K/UL (4.8-10.8)
--- NOTE | 2020-04-10 08:00 | Emergency Room Report ---
History of Present Illness General Chief Complaint: General Complaint Source: Patient Present Illness HPI 64-year-old female history of smoking presents with right groin pain x1 week aggravated with movement alleviated throughout severity is mild, intermittent, patient also endorses some dysuria no flank pain, no fevers no chills no chest pain or shortness of breath patient presents for evaluation Allergies: Coded Allergies: No Known Allergies (Verified Allergy, Unknown, 09/05/07) COVID-19 Screening Contact w/high risk pt: No Recent Travel to affected area: No Experienced COVID-19 symptoms?: No COVID-19 Testing performed CARE TRANSITION MANAGER: No Patient History Past Medical History: see triage record Social History: Reports: smoking Last Menstrual Period: n/a Reviewed Nursing Documentation: PMH: Agreed; PSxH: Agreed Nursing Documentation-PMH Past Medical History: No History, Except For Hx Cardiac Problems: Yes - bypass surgery 2003 Hx Hypertension: Yes Hx Asthma: Yes Hx COPD: Yes Hx Diabetes: No Hx Cancer: No Hx Gastrointestinal Problems: Yes - nausea/vomiting and diarrhea when ill Hx Neurological Problems: No Review of Systems All Other Systems: negative except mentioned in HPI Physical Exam Vital Signs Date Time Temp Pulse Resp B/P (MAP) Pulse Ox O2 Delivery O2 Flow Rate FiO2 04/10/20 07:11 99.0 65 18 203/121 (148) 90 Room Air Sp02 EP Interpretation: reviewed, normal General Appearance: well appearing, no apparent distress, alert Head: normocephalic, atraumatic Eyes: bilateral eye PERRL, bilateral eye EOMI ENT: uvula midline, moist mucus membranes Neck: supple, thyroid normal, supple/symm/no masses Respiratory: no respiratory distress, no retraction, no accessory muscle use, wheezing Cardiovascular #1: normal peripheral pulses, regular rate, rhythm, no edema, no gallop, no murmur Gastrointestinal: non tender, soft, no guarding, no rebound Musculoskeletal: other - Right hip tender to palpation, no fracture, gait is stable with walker Neurologic: alert, oriented x3 Psychiatric: mood/affect normal Skin: no rash, warm/dry Medical Decision Making Diagnostic Impression: Primary Impression: Diverticulitis ER Course 64-year-old female initially to be admitted, patient with abdominal pain differential diagnosis includes diverticulitis appendicitis, enteritis, patient was offered admission patient states she feels comfortable going home Antibiotics, abdomen soft nontender Disposition home with return precautions follow-up with PCP Laboratory Tests Test 04/10/20 07:00 White Blood Count 7.3 K/UL (4.8-10.8) Red Blood Count 5.11 M/UL (4.20-5.40) Hemoglobin 15.6 G/DL (12.0-16.0) Hematocrit 45.7 % (37.0-47.0) Mean Corpuscular Volume 89 FL (80-99) Mean Corpuscular Hemoglobin 30.5 PG (27.0-31.0) Mean Corpuscular Hemoglobin Concent 34.1 G/DL (32.0-36.0) Red Cell Distribution Width 12.5 % (11.6-14.8) Platelet Count 221 K/UL (150-450) Mean Platelet Volume 6.2 FL (6.5-10.1) L Neutrophils (%) (Auto) 80.0 % (45.0-75.0) H Lymphocytes (%) (Auto) 15.2 % (20.0-45.0) L Monocytes (%) (Auto) 4.1 % (1.0-10.0) Eosinophils (%) (Auto) 0.4 % (0.0-3.0) Basophils (%) (Auto) 0.4 % (0.0-2.0) Urine Color Pale yellow Urine Appearance Clear Urine pH 7 (4.5-8.0) Urine Specific [place] 1.010 (1.005-1.035) Urine Protein 4+ (NEGATIVE) H Urine Glucose (UA) Negative (NEGATIVE) Urine Ketones Negative (NEGATIVE) Urine Blood 1+ (NEGATIVE) H Urine Nitrite Negative (NEGATIVE) Urine Bilirubin Negative (NEGATIVE) Urine Urobilinogen Normal MG/DL (0.0-1.0) Urine Leukocyte Esterase Negative (NEGATIVE) Urine RBC 0-2 /HPF (0 - 2) Urine WBC 0-2 /HPF (0 - 2) Urine Squamous Epithelial Cells Few /LPF (NONE/OCC) Urine Bacteria Occasional /HPF (NONE) Sodium Level 144 MMOL/L (136-145) Potassium Level 4.6 MMOL/L (3.5-5.1) Chloride Level 107 MMOL/L (98-107) Carbon Dioxide Level 28 MMOL/L (21-32) Anion Gap 9 mmol/L (5-15) Blood Urea Nitrogen 20 mg/dL (7-18) H Creatinine 1.9 MG/DL (0.55-1.30) H Estimated Glomerular Filtration Rate 32.4 mL/min (>60) Glucose Level 90 MG/DL (74-106) Calcium Level 7.3 MG/DL (8.5-10.1) L Total Bilirubin 0.4 MG/DL (0.2-1.0) Aspartate Amino Transferase (AST) 31 U/L (15-37) Alanine Aminotransferase (ALT) 25 U/L (12-78) Alkaline Phosphatase 71 U/L (46-116) Total Protein 6.6 G/DL (6.4-8.2) Albumin 2.9 G/DL (3.4-5.0) L Globulin 3.7 g/dL Albumin/Globulin Ratio 0.8 (1.0-2.7) L Lipase 112 U/L (73-393) EKG Diagnostic Results EKG Time: 07:30 EP Interpretation: Sinus bradycardia, rate 59, QTc 435, no acute ST elevations , normal axis Rhythm Strip Diag. Results Rhythm Strip Time: 08:00 EP Interpretation: yes Rate: 60 Rhythm: NSR, no PVC's, no ectopy CT/MRI/US Diagnostic Results CT/MRI/US Diagnostic Results : Impression COMPARISON: No relevant prior studies available. FINDINGS: Lung bases: Mild linear and dependent atelectasis in bilateral lung bases. Heart: Cardiomegaly. ABDOMEN: Liver: Unremarkable. Gallbladder and bile ducts: Possible mild layering gallbladder sludge versus tiny stones. No pericholecystic fluid. No biliary ductal dilatation. Pancreas: Unremarkable. No ductal dilation. Spleen: Unremarkable. No splenomegaly. Adrenals: Unremarkable. No mass. Kidneys and ureters: Unremarkable. No obstructing stones. No hydronephrosis. Stomach and bowel: Descending and sigmoid colonic diverticulosis. Mild wall thickening in the distal descending and proximal sigmoid colon may be related to underdistention versus a low-grade colitis or diverticulitis. Remainder of the colon appears unremarkable. No abnormally distended loops of small bowel. GE junction and stomach appear unremarkable. PELVIS: Appendix: No findings to suggest acute appendicitis. Bladder: Unremarkable. No stones. Reproductive: Unremarkable as visualized. ABDOMEN and PELVIS: Intraperitoneal space: Unremarkable. No free air. No significant fluid collection. Bones/joints: Grade 1 anterolisthesis of L4 relative to L5 with 7 mm offset. Moderate degenerative disc space loss at L4-5. No acute fracture. No dislocation. Possible fractures of the right inferior and superior pubic rami. Soft tissues: Unremarkable. Vasculature: Bilateral common iliac artery aneurysms, with diameter of 3.2 cm on the left and 2.7 cm in the right. Atherosclerosis throughout the abdominal aorta and its proximal branches. No abdominal aortic aneurysm. Lymph nodes: Unremarkable. No enlarged lymph nodes. IMPRESSION: 1. Descending and sigmoid colonic diverticulosis. Mild wall thickening in the distal descending and proximal sigmoid colon may be related to underdistention versus a low-grade colitis or diverticulitis. No significant adjacent inflammatory stranding. No adjacent free air or fluid collection. 2. Possible mild layering gallbladder sludge versus tiny stones. No pericholecystic fluid. No biliary ductal dilatation. 3. Cardiomegaly. 4. Bilateral common iliac artery aneurysms, with diameter of 3.2 cm on the left and 2.7 cm in the right. 5. Grade 1 anterolisthesis of L4 relative to L5 with 7 mm offset. Dictated By: Pascual Nunes MD Electronically Signed By: Pascual Nunes MD Signed Date/Time 04/10/20 0912 CC: Ruddy Elizabeth MD Last Vital Signs Date Time Temp Pulse Resp B/P (MAP) Pulse Ox O2 Delivery O2 Flow Rate FiO2 04/10/20 07:11 99.0 65 18 203/121 (148) 90 Room Air Disposition: HOME, SELF-CARE Condition: Stable Scripts Hydrocodone Bit/Acetaminophen 5-325* (NORCO 5-325 TABLET*) 1 Each Tablet 1 TAB ORAL Q6H PRN for FOR PAIN, #12 TAB 0 Refills Prov: Ruddy Elizabeth MD 04/10/20 Amoxicillin/Potassium Clav 875-125* (AUGMENTIN 875-125 TABLET*) 1 Each Tablet 1 TAB ORAL TWICE A DAY, #20 TAB Prov: Ruddy Elizabeth MD 04/10/20 Referrals: NON PHYSICIAN (PCP) [facility] Patient Instructions: Diverticulitis, [id number] Additional Instructions: The patient was provided with discharge instructions, notified to follow-up with a primary care doctor and or specialist in the next 24-48 hours, and to return to the ED if they have worsening of their symptoms. Please note that this report is being documented using DRAGON technology. This can lead to erroneous entry secondary to incorrect interpretation by the dictating instrument. Ruddy Elizabeth MD April 10, 2020 08:00
[2020-04-10 08:04] LABS: ANION GAP 9 mmol/L (5-15); BLOOD UREA NITROGEN 20 mg/dL (7-18); CALCIUM 7.3 MG/DL (8.5-10.1); CARBON DIOXIDE 28 MMOL/L (21-32); CHLORIDE 107 MMOL/L (98-107); CREATININE 1.9 MG/DL (0.55-1.30); POTASSIUM 4.6 MMOL/L (3.5-5.1); SODIUM 144 MMOL/L (136-145)
[2020-04-10 08:12] LABS: ALANINE AMINOTRANSFERASE 25 U/L (12-78); ALBUMIN 2.9 G/DL (3.4-5.0); ALBUMIN/GLOBULIN RATIO 0.8 (1.0-2.7); ALKALINE PHOSPHATASE 71 U/L (46-116); ASPARTATE AMINO TRANSFERASE 31 U/L (15-37); BILIRUBIN,TOTAL 0.4 MG/DL (0.2-1.0)
--- NOTE | 2020-04-10 09:13 | Diagnostic Imaging Report ---
EXAM: CT Abdomen and Pelvis Without Intravenous Contrast CLINICAL HISTORY: PAIN TECHNIQUE: Axial computed tomography images of the abdomen and pelvis without intravenous contrast. Sagittal and coronal reformatted images were created and reviewed. CTDI is 8.20 mGy and DLP is 399.60 mGy-cm. One or more of the following dose reduction techniques were used: automated exposure control, adjustment of the mA and/or kV according to patient size, use of iterative reconstruction technique. COMPARISON: No relevant prior studies available. FINDINGS: Lung bases: Mild linear and dependent atelectasis in bilateral lung bases. Heart: Cardiomegaly. ABDOMEN: Liver: Unremarkable. Gallbladder and bile ducts: Possible mild layering gallbladder sludge versus tiny stones. No pericholecystic fluid. No biliary ductal dilatation. Pancreas: Unremarkable. No ductal dilation. Spleen: Unremarkable. No splenomegaly. Adrenals: Unremarkable. No mass. Kidneys and ureters: Unremarkable. No obstructing stones. No hydronephrosis. Stomach and bowel: Descending and sigmoid colonic diverticulosis. Mild wall thickening in the distal descending and proximal sigmoid colon may be related to underdistention versus a low-grade colitis or diverticulitis. Remainder of the colon appears unremarkable. No abnormally distended loops of small bowel. GE junction and stomach appear unremarkable. PELVIS: Appendix: No findings to suggest acute appendicitis. Bladder: Unremarkable. No stones. Reproductive: Unremarkable as visualized. ABDOMEN and PELVIS: Intraperitoneal space: Unremarkable. No free air. No significant fluid collection. Bones/joints: Grade 1 anterolisthesis of L4 relative to L5 with 7 mm offset. Moderate degenerative disc space loss at L4-5. No acute fracture. No dislocation. Possible fractures of the right inferior and superior pubic rami. Soft tissues: Unremarkable. Vasculature: Bilateral common iliac artery aneurysms, with diameter of 3.2 cm on the left and 2.7 cm in the right. Atherosclerosis throughout the abdominal aorta and its proximal branches. No abdominal aortic aneurysm. Lymph nodes: Unremarkable. No enlarged lymph nodes. IMPRESSION: 1. Descending and sigmoid colonic diverticulosis. Mild wall thickening in the distal descending and proximal sigmoid colon may be related to underdistention versus a low-grade colitis or diverticulitis. No significant adjacent inflammatory stranding. No adjacent free air or fluid collection. 2. Possible mild layering gallbladder sludge versus tiny stones. No pericholecystic fluid. No biliary ductal dilatation. 3. Cardiomegaly. 4. Bilateral common iliac artery aneurysms, with diameter of 3.2 cm on the left and 2.7 cm in the right. 5. Grade 1 anterolisthesis of L4 relative to L5 with 7 mm offset.
[2020-04-10 09:45] VITALS: BP 189/112
--- NOTE | 2020-04-10 09:54 | Diagnostic Imaging Report ---
EXAM: XR Chest, 1 View CLINICAL HISTORY: ABD PAIN TECHNIQUE: Frontal view of the chest. COMPARISON: Chest x-ray dated 09/01/17. CT of the abdomen and pelvis dated 04/10/20. FINDINGS: Lungs: Subsegmental atelectasis in the left lung base. The lungs are otherwise clear. Pleural space: Unremarkable. The costophrenic angles are sharp. No visible pneumothorax. Heart: Cardiomegaly. Mediastinum: Unremarkable. Bones/joints: Status post median sternotomy. IMPRESSION: 1. Subsegmental atelectasis in the left lung base. 2. Cardiomegaly.
--- NOTE | 2020-04-10 10:49 | NUR ---
ED Nurse Note: Patient's BP currently 211/118. Dr Elizabeth aware, will give medications as ordered.
[2020-04-10 10:51] VITALS: BP 211/118
[2020-04-10] MEDS ORDERED: cefTRIAXone 1 GM in NS 55 ML IVPB ONE (12:15)
[2020-04-10] MEDS ORDERED: NORCO 5-325 TA1 EAC1 ORAL (12:24)
[2020-04-10] MEDS ORDERED: AUGMENTIN 875-1 EAC1 ORAL (12:24)
[2020-04-10] MEDS ORDERED: Augmentin 875mg Tab ORAL ONE (12:30)
[2020-04-10] MEDS ORDERED: DICYCLOMINE HCL10 MG ORAL (12:47)
[2020-04-10 12:51] VITALS: BP 170/89
--- NOTE | 2020-04-10 12:51 | NUR ---
ER DISCHARGE NOTE: Patient is cleared to be discharged per ERMD, pt is aox4, on room air, with stable vital signs. pt was given dc and prescription instructions, pt was able to verbalize understanding, pt id band and iv site removed without complications. pt is able to ambulate with steady gait. pt took all belongings.
== END 2020-04-10 12:51 | disposition home or self-care (01) ==
LOC: EMR 07:15
DX: K57.92 Diverticulitis of intestine, part unspecified, without perforation or abscess without bleeding (principal); Z98.84 Bariatric surgery status; I10 Essential (primary) hypertension; J44.9 Chronic obstructive pulmonary disease, unspecified; I51.7 Cardiomegaly; I72.3 Aneurysm of iliac artery
CPT/HCPCS: 36415; 71045; 74176; 80053; 81003; 83690; 85025; 93005; 96374; 96375; 99284; J0360; J1170; J1885

== ENCOUNTER 2020-08-04 13:07 | Emergency (ER) | payer MEDICARE, MEDICAID ==
[~2020-08-04] VITALS: Ht 165.1 cm; Wt 79.8 kg
[~2020-08-04 13:07] MED LIST changes: +AUGMENTIN 875-1 EAC1 ORAL; +DICYCLOMINE HCL10 MG ORAL; +NORCO 5-325 TA1 EAC1 ORAL
[2020-08-04 13:30] VITALS: BP 188/105
[2020-08-04] MEDS ORDERED: Omnipaque 350 100ml vial INJ PRN (13:45)
--- NOTE | 2020-08-04 13:51 | Emergency Room Report ---
History of Present Illness General Chief Complaint: Edema Source: Patient (Ramses Graves) Present Illness HPI 65-year-old female with history of COPD and CHF, hypertension currently not taking any medication here complaining of over 1 month of right calf swelling and pain with 1 week of left calf swelling and 1 day of bluish discoloration of the left-sided toes. Patient also reports that 2 weeks ago started having pleuritic chest pain with shortness of breath. Patient was told by primary doctor a month ago that he is a venous duplex ultrasound of the right calf however has not done so yet. Denies any abdominal pain, nausea vomiting, headache and dizziness. Patient is not taking any blood thinners. Patient continues to smoke to smoke tobacco on daily basis. Denies drug use and alcohol intake. Patient reports that she has a sedentary lifestyle. Denies any recent travel, fever and chills. 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 (Ramses Graves) Patient History Past Medical History: see triage record Past Surgical History: none Pertinent Family History: none Now: No Immunizations: UTD Reviewed Nursing Documentation: PMH: Agreed; PSxH: Agreed (Ramses Graves) Nursing Documentation-PMH Past Medical History: No History, Except For Hx Hypertension: Yes Hx Asthma: Yes Hx COPD: Yes Hx Diabetes: Yes Hx Cancer: No Hx Gastrointestinal Problems: Yes - nausea/vomiting and diarrhea when ill Hx Neurological Problems: No (Ramses Graves) Review of Systems All Other Systems: negative except mentioned in HPI (Ramses Graves) Physical Exam Vital Signs Date Time Temp Pulse Resp B/P (MAP) Pulse Ox O2 Delivery O2 Flow Rate FiO2 08/04/20 13:08 97.7 95 17 191/110 (137) 94 Room Air Sp02 EP Interpretation: reviewed, abnormal - Elevated blood pressure General Appearance: no apparent distress, alert, GCS 15, non-toxic Head: normocephalic, atraumatic Eyes: bilateral eye normal inspection, bilateral eye PERRL ENT: hearing grossly normal, normal pharynx, no angioedema, normal voice Neck: full range of motion, supple/symm/no masses Respiratory: chest non-tender, lungs clear, normal breath sounds, no rhonchi, no respiratory distress, no retraction, speaking full sentences Cardiovascular #1: regular rate, rhythm, no edema, no murmur Cardiovascular #2: 2+ radial (R), 2+ radial (L), 2+ femoral (R), 2+ femoral (L) , 2+ dorsalis pedis (R), 2+ dorsalis pedis (L) Gastrointestinal: normal bowel sounds, non tender, soft, non-distended, no guarding, no rebound Rectal: deferred Musculoskeletal: back normal, calf tenderness - Right calf tenderness, other - Bluish discoloration left toes Psychiatric: judgement/insight normal, memory normal, mood/affect normal, no suicidal/homicidal ideation Skin: no rash Lymphatic: no adenopathy (Ramses Graves) Medical Decision Making PA Attestation All diagnoses and treatment plans were reviewed and discussed with my supervising physician Dr. Norris All diagnosis and treatment plans were discussed and reviewed by my supervising physician Dr. Gipson (Ramses Graves) Diagnostic Impression: Primary Impression: NSTEMI (non-ST elevated myocardial infarction) Additional Impressions: CHF exacerbation CKD (chronic kidney disease) Arterial occlusion, lower extremity Chest pain Claudication COPD with exacerbation Hyperkalemia Obesity Tobacco abuse Troponin level elevated Hx of CABG CAD (coronary artery disease) ER Course 65-year-old female with history of COPD and CHF, hypertension currently not taking any medication here complaining of over 1 month of right calf swelling and pain with 1 week of left calf swelling and 1 day of bluish discoloration of the left-sided toes. Patient also reports that 2 weeks ago started having pleuritic chest pain with shortness of breath. Patient was told by primary doctor a month ago that he is a venous duplex ultrasound of the right calf however has not done so yet. Denies any abdominal pain, nausea vomiting, headache and dizziness. Patient is not taking any blood thinners. Patient continues to smoke to smoke tobacco on daily basis. Denies drug use and alcohol intake. Patient reports that she has a sedentary lifestyle. Denies any recent travel, fever and chills.Patient is neurovascularly intact, no unilateral generalized weakness noted Ddx considered but are not limited to: PE, DVT, WI, Angina, COPD, CHF Vital signs: are WNL, pt. is afebrile H&PE are most consistent with arterial occlusion, NSETMI ORDERS: Chest pain and PE work-up ED INTERVENTIONS: NS bolus at 100/mL Patient was admitted with diagnosis of NSTEMI and arterial occlusion lower extremity to [facility] Dr. Higgins under supervision of DrUzair: Brandan Norris pt stable at time of admission (Ramses Graves) ER Course Critical Care Statement Organ systems at risk include: Cardiac, circulatory, renal, limb threat Critical care performed for 75 minutes. Time is exclusive of separately billable procedures. Time includes: direct patient care, continuous monitoring and multiple patient reassessment, coordination of patient care, review of patient's medical records , medical consultation, family consultation regarding treatment decisions and documentation of patient care. SHARED SERVICE NOTE I was consulted to see the PA/MONITOR WORKER regarding the patient's management and disposition. On a [id number]-[id number] assessment with the patient, he is noted to have a arterial occlusion to the right lower extremity from the superior superficial mid femoral artery to the popliteal. Stat vascular surgery consultation was made to Dr. LIAO who agrees to see and evaluate the patient. They were updated on all imaging and physical exam findings. States that this is likely a chronic occlusion as patient has had symptoms for a month and is able to move her extremity. Does not recommend heparin drip at this time. Recommends aspirin, statin, and admission for medical management. Vascular surgery states that patient can be seen as an outpatient in 1 to 2 weeks in his office for possible angiogram of the lower extremity once OVI resolves after medical management. States he does not believe that this needs to be done as an inpatient, nor does she need an acute heparin drip for the extremity at this time. On evaluation of patient's labs, she is noted to have acute on chronic CKD with hyperkalemia of 5.7. Due to concomitant EKG findings and prolonged QT interval , will give calcium to stabilize cardiac membrane, insulin, glucose, bicarb and admit patient. Furthermore, she will get aspirin per vascular surgery recommendations. Will start statin in the ED. CXR is consistent with CHF exacerbation. Unfortunately, due to OVI, patient is unable to tolerate IV contrast from CT angiogram to evaluate for PE as cause for her pleuritic CP. Will need VQ scan as an inpatient. She is currently hemodynamically stable with no extreme R heart strain on EKG. Bedside echocardiogram was performed in order to evaluate for RV dilation, septal bowing or any indication of massive/ submassive PE. Official read is pending. Patient's chest pain is not classic for pericarditis or myocarditis, and the patient has no significant risk factors for a pericardial effusion and has stable vitals signs, unlikely to have tamponade. The presentation is not consistent with dissection, pain is not severe, radiating to back, or tearing in nature. Has normal bilateral radial and pedal pulses. Patient is capitated to [facility] Pt is amenable to transfer Given the patient's medical needs, appropriate facilities for transfer were discussed and the decision has been made to transfer this patient to [facility]. The receiving facility has the capacity and capabilities to provide care for the patient. I spoke with Dr Vora who accepted the patient in transfer. The patient has been informed and updated of their current clinical status. The patient has given verbal consent for the transfer. The risks and benefits were explained and the patient verbalizes their understanding. The patient will be transported by [facility] emergency department (Andreina Gipson D.O.) EKG Diagnostic Results Rate: normal Rhythm: NSR ST Segments: no acute changes Other Impression No acute ST changes (Ramses Graves) CARLOS Scribe Text 12-lead EKG (interpreted by me) Time: 1442 Indication: Rhythm analysis Tracing visualized and Interpreted by me. Rhythm: Normal sinus rhythm Rate: 84 bpm QTc: 496 Morphology: No_significant_ST_elevations_or_depressions, No STEMI Impression: Sinus rhythm, first-degree AV block, biphasic T wave inversions in lead II, 3, with ST depressions in aVF. No acute ST elevation WI. There are Q waves in lead aVL, aVR, V1. No acute STEMI (Andreina Gipson D.O.) Rhythm Strip Diag. Results Rhythm Strip Time: 15:53 EP Interpretation: yes Rate: 84 Rhythm: NSR, no PVC's, no ectopy (Andreina Gipson D.O.) Chest X-Ray Diagnostic Results Chest X-Ray Diagnostic Results : Chest X-Ray Ordered: Yes # of Views/Limited/Complete: 1 View Indication: Chest Pain EP Interpretation: Yes PA Xray: Interpretation reviewed, by supervising MD, and agrees with findings. Interpretation: no consolidation, no effusion, no pneumothorax (Ramses Graves) Chest X-Ray Diagnostic Results : CARLOS Scribe Text Chest X-Ray: Views: 1 view(s) Indication: Chest pain Findings: Cardiomegaly. CABG. No infiltrate. No effusions Impression: CHF The X-ray(s) were independently viewed and interpreted contemporaneously Electronically signed by Andreina shepherd DO (Andreina Gipson D.O.) CT/MRI/US Diagnostic Results CT/MRI/US Diagnostic Results #1: Imaging Test Ordered: Venous duplex ultrasound bilateral Impression negative DVT CT/MRI/US Diagnostic Results #2: Imaging Test Ordered: Bilateral arterial duplex Impression right distal and mid femoral arterial occlusion (Ramses Graves) Last Vital Signs Date Time Temp Pulse Resp B/P (MAP) Pulse Ox O2 Delivery O2 Flow Rate FiO2 08/04/20 13:08 97.7 95 17 191/110 (137) 94 Room Air (Ramses Graves) Reevaluation Time: 15:54 Status: improved (Andreina Gipson D.O.) [facility] Decision Time: 15:30 (Andreina Gipson D.O.) Condition: Serious Referrals: NON PHYSICIAN (PCP) Ramses Graves Aug 04, 2020 13:51 Andreina Gipson D.O. Aug 04, 2020 16:01
[2020-08-04 14:03] LABS: HEMATOCRIT 43.7 % (37.0-47.0); HEMOGLOBIN 14.3 G/DL (12.0-16.0); MEAN CORPUSCULAR VOLUME 91 FL (80-99); PLATELET COUNT 241 K/UL (150-450); RED BLOOD COUNT 4.81 M/UL (4.20-5.40); WHITE BLOOD COUNT 6.5 K/UL (4.8-10.8)
[2020-08-04 14:10] LABS: ANION GAP 9 mmol/L (5-15); BLOOD UREA NITROGEN 31 mg/dL (7-18); CALCIUM 8.1 MG/DL (8.5-10.1); CARBON DIOXIDE 25 MMOL/L (21-32); CHLORIDE 106 MMOL/L (98-107); CREATININE 1.9 MG/DL (0.55-1.30); POTASSIUM 5.7 MMOL/L (3.5-5.1); SODIUM 140 MMOL/L (136-145)
[2020-08-04 14:21] LABS: ALANINE AMINOTRANSFERASE 30 U/L (12-78); ALBUMIN 3.1 G/DL (3.4-5.0); ALBUMIN/GLOBULIN RATIO 0.7 (1.0-2.7); ALKALINE PHOSPHATASE 105 U/L (46-116); ASPARTATE AMINO TRANSFERASE 33 U/L (15-37); BILIRUBIN,TOTAL 0.5 MG/DL (0.2-1.0)
[2020-08-04 15:20] VITALS: BP 165/99
[2020-08-04] MEDS ORDERED: Morphine Sulfate 2mg/ml Inj(IV/IM USE ONLY) ONE (15:47)
--- NOTE | 2020-08-04 15:48 | Diagnostic Imaging Report ---
Indication: Left foot pain Technique: 3 views foot Comparison: none Findings: No acute fractures. No dislocations. The joint spaces are preserved. Surgical clips are seen in the medial ankle region tissues. Impression: No acute process
--- NOTE | 2020-08-04 15:54 | Diagnostic Imaging Report ---
Indication: Chest pain Technique: One view of the chest Comparison: 04/10/2020 Findings: There is slight blunting of left costophrenic sulcus, likely small left pleural effusion. There is mild interstitial congestion. The heart remains enlarged. There is evidence of prior CABG. Impression: Evidence of mild interstitial congestion and likely small left pleural effusion
[2020-08-04] MEDS ORDERED: Morphine Sulfate 2mg/ml Inj(IV/IM USE ONLY) IVP ONE (16:00)
[2020-08-04] MEDS ORDERED: Sodium Bicarbonate 50ml Carp IV ONE (16:15)
[2020-08-04] MEDS ORDERED: Calcium Gluconate 1gm/50ml 50 ML IVPB ONE (16:15)
[2020-08-04] MEDS ORDERED: Insulin Human Regular 100units/ml 3ml IV ONE (16:15)
--- NOTE | 2020-08-04 16:34 | Diagnostic Imaging Report ---
Clinical Indication: Chest pain and shortness of breath Technique: Spiral acquisitions obtained through the chest. No IV contrast utilized, reason not stated. Multiplanar reconstructions generated. Total dose length product 275 mGycm. CTDIvol(s) 7 mGy. Dose reduction achieved using automated exposure control Comparison: 09/05/2007 Findings: There is thickening of the major fissure on the right. Uncertain as whether this represents fissural thickening or fluid versus subpleural atelectasis. The right lung demonstrates a mosaic perfusion pattern. Some atelectasis is seen at the left lung base. There is some atelectasis and possible scarring in the lingula. The left lung likewise demonstrate mosaic perfusion pattern. No dense consolidation, effusions, or congestion demonstrated. No masses or nodules. The heart is enlarged. No pericardial effusion. No mediastinal or hilar mass or adenopathy. The main pulmonary artery is dilated, measuring 4 cm in diameter, and the right and left pulmonary arteries are also dilated, each measuring over 3 cm in diameter. Included thyroid is unremarkable. There are median sternotomy sutures. No axillary or chest wall mass or adenopathy. The bones are unremarkable. The included upper abdomen is unremarkable. Impression: Cardiomegaly Mosaic pulmonary perfusion pattern bilaterally. Given the above, most likely on the basis of mild pulmonary edema but other etiologies, including COPD, possible Dilated pulmonary arteries, likely reflecting pulmonary arterial hypertension Postsurgical changes of the heart. The CT scanner at [facility] is accredited by the [employer] and the scans are performed using protocols designed to limit radiation exposure to as low as reasonably achievable to attain images of sufficient resolution adequate for diagnostic evaluation.
[2020-08-04 17:14] LABS: APPEARANCE,URINE CLEAR; BILIRUBIN, URINE NEGATIVE (NEGATIVE); GLUCOSE, URINE (UA) NEGATIVE (NEGATIVE); KETONES,URINE NEGATIVE (NEGATIVE); LEUKOCYTE ESTERASE ,URINE NEGATIVE (NEGATIVE); NITRITE,URINE NEGATIVE (NEGATIVE); PH,URINE 7 (4.5-8.0); PROTEIN,URINE 4+ (NEGATIVE); UROBILINOGEN,URINE NORMAL MG/DL (0.0-1.0)
[2020-08-04 17:18] LABS: COLOR,URINE YELLOW
[2020-08-04 17:20] VITALS: BP 171/98
--- NOTE | 2020-08-04 17:27 | Diagnostic Imaging Report ---
Indication: Leg pain Technique: Grayscale and duplex images of the bilateral lower extremity veins Comparison: Findings: Bilaterally, grayscale and duplex images demonstrate no evidence of intraluminal thrombus. Normal phasic Doppler waveforms, demonstrating normal augmentation response and no evidence of valvular insufficiency. Greater saphenous vein(s) and tibial veins are patent. Normal compressibility. Impression: Negative for evidence of lower extremity deep venous thrombosis bilaterally
--- NOTE | 2020-08-04 17:32 | Diagnostic Imaging Report ---
Indication: Leg pain Technique: Grayscale and duplex images of the bilateral lower extremity arteries Comparison: none Findings: On the right, biphasic waveforms are seen at the common femoral and proximal superficial femoral artery. The mid superficial femoral artery demonstrates long segment occlusion. There is distal reconstitution of the popliteal artery, which demonstrates monophasic flow. Monophasic flow is also seen in the posterior tibial artery. No flow seen in the peroneal artery. Monophasic flow is seen in the dorsalis pedis artery but none in the anterior tibial artery proximal to it. On the left, atherosclerotic plaquing is seen in the common femoral artery. Waveforms are biphasic with sharp systolic peaks. Distal superficial femoral artery waveforms are dampened but still biphasic. Popliteal artery waveforms are dampened. Posterior tibial artery, dorsalis pedis, anterior tibial artery waveforms are severely dampened. No flow seen in the peroneal artery. 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 There is distal reconstitution of the dorsalis pedis artery. On the left, dampening of the distal waveforms suggests significant stenosis within the superficial femoral artery. Peroneal artery is not demonstrated, may be occluded. There are also dampened distal anterior and posterior tibial artery waveforms which could indicate proximal disease
[2020-08-04 20:40] VITALS: BP 144/64
[2020-08-04] MEDS ORDERED: Morphine Sulfate 4mg/ml Inj (IV USE ONLY) IVP ONE (20:45)
[2020-08-04] MEDS ORDERED: HydrALAZINE 50mg tab ONE (22:26)
[2020-08-04 22:28] VITALS: BP 179/100
[2020-08-04] MEDS ORDERED: HydrALAZINE 50mg tab ORAL ONE (22:30)
== END 2020-08-04 22:15 | disposition short-term general hospital (02) ==
LOC: EMR 13:20
DX: I21.4 Non-ST elevation (NSTEMI) myocardial infarction (principal); I13.0 Hypertensive heart and chronic kidney disease with heart failure and stage 1 through stage 4 chronic kidney disease, or unspecified chronic kidney disease; I50.20 Unspecified systolic (congestive) heart failure; N18.9 Chronic kidney disease, unspecified; E11.22 Type 2 diabetes mellitus with diabetic chronic kidney disease; J44.9 Chronic obstructive pulmonary disease, unspecified; I77.1 Stricture of artery; R07.9 Chest pain, unspecified; E87.5 Hyperkalemia; E66.9 Obesity, unspecified; R79.89 Other specified abnormal findings of blood chemistry; Z95.1 Presence of aortocoronary bypass graft; I25.10 Atherosclerotic heart disease of native coronary artery without angina pectoris; Z68.29 Body mass index [BMI] 29.0-29.9, adult; I44.0 Atrioventricular block, first degree
CPT/HCPCS: 36415; 71045; 71250; 73630; 80053; 80307; 81003; 83880; 84484; 85007; 85025; 85379; 85610; 85730; 86850; 86900; 86901; 93005; 93306; 93925; 93970; 96361; 96365; 96375; 96376; 99285; J0610; J1815; J1940; J2270; J7030

== ENCOUNTER 2020-11-01 13:59 | Inpatient (IN) | payer MEDICARE, MEDICAID ==
[~2020-11-01] VITALS: Ht 167.6 cm; Wt 86.9 kg
[2020-11-01 14:15] VITALS: BP 171/85
--- NOTE | 2020-11-01 14:15 | NUR ---
ED Nurse Note: Pt walked in from home c/o elevated BP (200 systolic) about 30 minutes before arrival. Pt reports that her PCP told her to go visit ER. Pt denies any other complaints at this time. BP in the 170s systolic at triage. Respirations even and unlabored on room air. Vitals stable as documented. A+Ox4, speaking in complete sentences.
[2020-11-01 15:20] LABS: HEMATOCRIT 42.6 % (37.0-47.0); HEMOGLOBIN 14.8 G/DL (12.0-16.0); MEAN CORPUSCULAR VOLUME 93 FL (80-99); PLATELET COUNT 246 K/UL (150-450); RED BLOOD COUNT 4.58 M/UL (4.20-5.40); RED CELL DISTRIBUTION WIDTH 16.4 % (11.6-14.8); WHITE BLOOD COUNT 7.9 K/UL (4.8-10.8)
[2020-11-01 15:36] LABS: CALCIUM 6.9 MG/DL (8.5-10.1); CREATININE 2.3 MG/DL (0.55-1.30); POTASSIUM 4.9 MMOL/L (3.5-5.1)
[2020-11-01 15:40] LABS: ALBUMIN 3.1 G/DL (3.4-5.0); ALBUMIN/GLOBULIN RATIO 0.9 (1.0-2.7); BILIRUBIN,TOTAL 0.4 MG/DL (0.2-1.0)
[2020-11-01 16:00] VITALS: BP 155/81
[2020-11-01 16:05] LABS: APPEARANCE,URINE CLEAR; BILIRUBIN, URINE NEGATIVE (NEGATIVE); COLOR,URINE PALE YELLOW; GLUCOSE, URINE (UA) NEGATIVE (NEGATIVE); KETONES,URINE NEGATIVE (NEGATIVE); LEUKOCYTE ESTERASE ,URINE NEGATIVE (NEGATIVE); NITRITE,URINE NEGATIVE (NEGATIVE); PH,URINE 6 (4.5-8.0); PROTEIN,URINE 4+ (NEGATIVE); UROBILINOGEN,URINE NORMAL MG/DL (0.0-1.0)
--- NOTE | 2020-11-01 16:14 | Diagnostic Imaging Report ---
Indication: Reason For Exam: DIZZY Technique: Single AP view of the chest. Comparison: Chest radiograph dated 08/04/2020 Findings: The cardiomediastinal silhouette unchanged with persistent cardiomegaly. Linear left midlung opacity likely represents chronic atelectasis or scarring. Stable mild pulmonary vascular congestion. No new airspace consolidation. Chronic blunting of left costophrenic angle. No pneumothorax. Redemonstration of right apical scarring. No acute osseous abnormality. Status post median sternotomy with preserved alignment wires. IMPRESSION: 1. Pulmonary vascular congestion without new airspace consolidation. 2. Cardiomegaly.
--- NOTE | 2020-11-01 16:56 | Emergency Room Report ---
History of Present Illness General Chief Complaint: Hypertension Source: Patient Present Illness HPI 65-year-old female presents for high blood pressure. States she checked her blood pressure at home and the systolic was greater than 200. Denies any dizziness or chest pain. Denies shortness of breath. States she has been compliant with her BP meds. States about 1 month ago all her meds were changed. Denies alcohol or drug use. No other aggravating relieving factors. 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 Patient History Past Medical History: DM, HTN, asthma, COPD Social History: Denies: smoking, alcohol use, drug use Now: No Immunizations: UTD Reviewed Nursing Documentation: PMH: Agreed; PSxH: Agreed Nursing Documentation-PMH Hx Hypertension: Yes Hx Asthma: Yes Hx COPD: Yes Hx Diabetes: Yes Hx Cancer: No Hx Gastrointestinal Problems: Yes - nausea/vomiting and diarrhea when ill Hx Neurological Problems: No Review of Systems All Other Systems: negative except mentioned in HPI Physical Exam Vital Signs Date Time Temp Pulse Resp B/P (MAP) Pulse Ox O2 Delivery O2 Flow Rate FiO2 11/01/20 14:00 98.6 68 18 178/98 (124) 98 Room Air Sp02 EP Interpretation: reviewed, normal General Appearance: no apparent distress, alert, GCS 15, non-toxic, obese Head: normocephalic, atraumatic Eyes: bilateral eye normal inspection, bilateral eye PERRL ENT: hearing grossly normal, normal pharynx, no angioedema, normal voice Neck: full range of motion, supple/symm/no masses Respiratory: chest non-tender, lungs clear, normal breath sounds, speaking full sentences Cardiovascular #1: regular rate, rhythm, no edema Cardiovascular #2: 2+ carotid (R), 2+ carotid (L), 2+ radial (R), 2+ radial (L), 2+ dorsalis pedis (R), 2+ dorsalis pedis (L) Gastrointestinal: normal bowel sounds, non tender, soft, non-distended, no guarding, no rebound Rectal: deferred Genitourinary: normal inspection, no CVA tenderness Musculoskeletal: back normal, normal range of motion, gait/station normal, non- tender Neurologic: alert, motor strength/tone normal, oriented x3, sensory intact, responsive, speech normal Psychiatric: judgement/insight normal, memory normal, mood/affect normal, no suicidal/homicidal ideation Reflexes: 3+ bicep (R), 3+ bicep (L), 3+ tricep (R), 3+ tricep (L), 3+ knee (R), 3+ knee (L) Skin: no rash Lymphatic: no adenopathy Medical Decision Making Diagnostic Impression: Primary Impression: ACS (acute coronary syndrome) Additional Impressions: Hypertension Qualified Codes: I10 - Essential (primary) hypertension Renal failure Qualified Codes: N17.9 - Acute kidney failure, unspecified; N18.9 - Chronic kidney disease, unspecified ER Course Hospital Course 65-year-old female presents for high blood pressure. 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 After initial history and physical I ordered labs, EKG, chest x-ray labs reviewed-no leukocytosis, hemoglobin/hematocrit stable, BUN/creatinine elevated. Troponin 0.175 EKG - NSR no acute ischemic changes interpreted by me unchanged from prior EKG Chest x-ray- no acute process Given aspirin. No chest pain. Because of insurance patient will be transferred I. I feel this is a highly complex case requiring extensive working including EKG/Rhythm strip, Xray/CT/US, Blood/urine lab work, repeat exams while in ED, and administration of strong opiates/narcotics for pain control, admission to hospital or close patient follow up. Diagnosis - ACS, hypertension, renal failure transferred in serious condition Laboratory Tests Test 11/01/20 14:45 11/01/20 15:15 White Blood Count 7.9 K/UL (4.8-10.8) Red Blood Count 4.58 M/UL (4.20-5.40) Hemoglobin 14.8 G/DL (12.0-16.0) Hematocrit 42.6 % (37.0-47.0) Mean Corpuscular Volume 93 FL (80-99) Mean Corpuscular Hemoglobin 32.4 PG (27.0-31.0) H Mean Corpuscular Hemoglobin Concent 34.8 G/DL (32.0-36.0) Red Cell Distribution Width 16.4 % (11.6-14.8) H Platelet Count 246 K/UL (150-450) Mean Platelet Volume 7.4 FL (6.5-10.1) Neutrophils (%) (Auto) % (45.0-75.0) Lymphocytes (%) (Auto) % (20.0-45.0) Monocytes (%) (Auto) % (1.0-10.0) Eosinophils (%) (Auto) % (0.0-3.0) Basophils (%) (Auto) % (0.0-2.0) Differential Total Cells Counted 100 Neutrophils % (Manual) 85 % (45-75) H Lymphocytes % (Manual) 12 % (20-45) L Monocytes % (Manual) 2 % (1-10) Eosinophils % (Manual) 0 % (0-3) Basophils % (Manual) 0 % (0-2) Band Neutrophils 1 % (0-8) Platelet Estimate Adequate Platelet Morphology Normal Polychromasia 1+ Anisocytosis 1+ Ovalocytes 1+ Sodium Level 136 MMOL/L (136-145) Potassium Level 4.9 MMOL/L (3.5-5.1) Chloride Level 103 MMOL/L (98-107) Carbon Dioxide Level 25 MMOL/L (21-32) Anion Gap 8 mmol/L (5-15) Blood Urea Nitrogen 46 mg/dL (7-18) H Creatinine 2.3 MG/DL (0.55-1.30) H Estimat Glomerular Filtration Rate 25.9 mL/min (>60) Glucose Level 76 MG/DL (74-106) Calcium Level 6.9 MG/DL (8.5-10.1) L Total Bilirubin 0.4 MG/DL (0.2-1.0) Aspartate Amino Transf (AST/SGOT) 27 U/L (15-37) Alanine Aminotransferase (ALT/SGPT) 21 U/L (12-78) Alkaline Phosphatase 37 U/L (46-116) L Troponin I 0.175 ng/mL (0.000-0.056) Total Protein 6.7 G/DL (6.4-8.2) Albumin 3.1 G/DL (3.4-5.0) L Globulin 3.6 g/dL Albumin/Globulin Ratio 0.9 (1.0-2.7) L Urine Color Pale yellow Urine Appearance Clear Urine pH 6 (4.5-8.0) Urine Specific [place] 1.015 (1.005-1.035) Urine Protein 4+ (NEGATIVE) H Urine Glucose (UA) Negative (NEGATIVE) Urine Ketones Negative (NEGATIVE) Urine Blood Negative (NEGATIVE) Urine Nitrite Negative (NEGATIVE) Urine Bilirubin Negative (NEGATIVE) Urine Urobilinogen Normal MG/DL (0.0-1.0) Urine Leukocyte Esterase Negative (NEGATIVE) Urine RBC 0-2 /HPF (0 - 2) Urine WBC 2-4 /HPF (0 - 2) Urine Squamous Epithelial Cells Moderate /LPF (NONE/OCC) H Urine Bacteria Few /HPF (NONE) EKG Diagnostic Results Troponin ordered: Yes Rate: normal Rhythm: NSR ST Segments: other - twave inversions in lateral and inferior leads ASA given to the pt in ED: Yes Rhythm Strip Diag. Results EP Interpretation: yes Rhythm: NSR, no PVC's, no ectopy Chest X-Ray Diagnostic Results Chest X-Ray Diagnostic Results : Chest X-Ray Ordered: Yes # of Views/Limited/Complete: 1 View Indication: Chest Pain EP Interpretation: Yes Interpretation: no consolidation, no effusion, other - inerstitital congestion Impression: No acute disease Electronically Signed by: Electronically signed by Priyank Coates MD Last Vital Signs Date Time Temp Pulse Resp B/P (MAP) Pulse Ox O2 Delivery O2 Flow Rate FiO2 11/01/20 14:15 98.1 70 20 171/85 100 Room Air Status: improved Disposition: SHORT-TERM HOSP Condition: Serious Referrals: [facility],REFERRING (PCP) Priyank Coates MD Nov 01, 2020 16:56
[2020-11-01 18:00] VITALS: BP 141/89
[2020-11-01] MEDS ORDERED: HYDROcodone/Acetamin 5/325 tab ORAL ONE (18:00)
--- NOTE | 2020-11-01 19:18 | NUR ---
HAND-OFF: Report given to NANCIE Mccain. Pt in stable condition; plan of care endorsed.
--- NOTE | 2020-11-01 19:19 | NUR ---
ED Nurse Note: pt laying in bed with eyes open, AAOx4, breathing even and unlabored. Assisted to walk to restroom
[2020-11-01 19:23] VITALS: BP 168/77
--- NOTE | 2020-11-01 19:23 | NUR ---
ED Nurse Note: pt SOB after exertion to restroom, assisted back to bed, O2 sat 85%, placed on 4L nc now 02 sat 100%. EDMD aware. Other vitals stable.
[2020-11-01 20:00] VITALS: BP 154/88
--- NOTE | 2020-11-01 20:00 | NUR ---
ED Nurse Note: titrated oxygen down to 2L nc sating 97-98%.
--- NOTE | 2020-11-01 22:39 | NUR ---
ED Nurse Note: pt laying in bed with eyes closed, opens eyes when name is called. No complaints from pt at the moment. Vital signs stable.
[2020-11-01 22:42] VITALS: BP 140/61
[2020-11-01] MEDS ORDERED: Enoxaparin 80mg Inj SUBQ ONE (23:15)
[2020-11-02] VITALS (7 sets, daily range): BP systolic 146–175; BP diastolic 77–90
--- NOTE | 2020-11-02 00:15 | NUR ---
ED Nurse Note: report given to NANCIE Valdivia.
--- NOTE | 2020-11-02 00:31 | NUR ---
ED Nurse Note: pt transfered to tele via gurney. Per EDMD ok to transfer. Pt is AAOx4, vital signs stable. Belongings and admission packet sent up with pt.
--- NOTE | 2020-11-02 01:21 | NUR ---
NURSE NOTES: Pt received from NANCIE Mccain. Pt is resting comfortably sitting at bedside and c/o pain 6/10 on lower back. Pt is ambulatory with walker and stays in bed due to SOB with exertion; Pt is A/Ox4. Pt admitting vitals T97.4 P66 R22 BP 146/90 O2 97%. Pt is on cardiac monitoring SR and denies any chest pain or shortness of breath. Pt has NC 2LPM with shallow breathing sating 97%; pt baseline breathing due to history of COPD. Pt has LAC 20G SL patent with skin dry and intact. notified for admitting orders. Awaiting reply. Bed is locked in lowest position with call light within reach. Will continue to monitor.
[2020-11-02] MEDS ORDERED: Albuterol/Ipratropium 3ml neb HHN PRN (03:00)
--- NOTE | 2020-11-02 03:10 | NUR ---
NURSE NOTES: Pt troponin result is 0.195 elevated and pt denies any chest pain. Pt vital signs T97.6 P72 R22 BP 144/82 O297%. MD Dr. Ryan Selby notified over telephone message. Awaiting reply. Will continue to monitor.
[2020-11-02 03:55] LABS: BASOPHILS % (AUTO) 0.2 % (0.0-2.0); EOSINOPHILS % (AUTO) 0.4 % (0.0-3.0); HEMATOCRIT 44.1 % (37.0-47.0); HEMOGLOBIN 15.2 G/DL (12.0-16.0); LYMPHOCYTES % (AUTO) 16.9 % (20.0-45.0); MEAN CORPUSCULAR VOLUME 92 FL (80-99); NEUTROPHILS % (AUTO) 77.5 % (45.0-75.0); PLATELET COUNT 267 K/UL (150-450); RED BLOOD COUNT 4.79 M/UL (4.20-5.40); RED CELL DISTRIBUTION WIDTH 16.8 % (11.6-14.8); WHITE BLOOD COUNT 8.8 K/UL (4.8-10.8)
[2020-11-02 04:09] LABS: INR 0.9 (0.9-1.1)
[2020-11-02 04:12] LABS: ANION GAP 1 mmol/L (5-15); BLOOD UREA NITROGEN 44 mg/dL (7-18); CALCIUM 7.2 MG/DL (8.5-10.1); CARBON DIOXIDE 34 MMOL/L (21-32); CHLORIDE 106 MMOL/L (98-107); CHOLESTEROL 230 MG/DL (< 200); CREATININE 2.3 MG/DL (0.55-1.30); HDL CHOLESTEROL 103 MG/DL (40-60); POTASSIUM 4.1 MMOL/L (3.5-5.1); SODIUM 141 MMOL/L (136-145); TRIGLYCERIDES 354 MG/DL (30-150)
[2020-11-02] MEDS: HYDROcodone/Acetamin 5/325 tab ORAL PRN ×3 (05:52→18:17)
--- NOTE | 2020-11-02 07:36 | NUR ---
NURSE HAND-OFF REPORT: Important Events on Shift:Pt admitted to tele Patient Status: Stable Diet: NPO Pending Orders: Pending Results/Labs:AM Labs Pending MD notification: Latest Vital Signs: Temperature 98.2 , Pulse 61 , B/P 157 /82 , Respiratory Rate 24 , O2 SAT 96 , Nasal Cannula, O2 Flow Rate 2.0 . Vital Sign Comment: VSS EKG Rhythm: Sinus Rhythm Rhythm change?: N MD Notified?: - MD Response: Latest [place] Fall Score: 60 Fall Risk: High Risk Safety Measures: Call light Within Reach, Bed Alarm Zone 2, Side Rails Side Rails x1, Bed position Low and Locked. Fall Precautions: Yellow Socks Yellow Gown Patient Fall Education Report given to NANCIE Muniz.
--- NOTE | 2020-11-02 07:40 | NUR ---
NURSE NOTES: Patient was seen in bed in semifowlers position with no acute signs of distress and aao x4. The patient is on 2L nasal cannula and NPO. The bed is placed in lowest position and locked, side rails up x3 the bed alarm is set to zone 1 and call light within reach.
--- NOTE | 2020-11-02 07:50 | NUR ---
NURSE NOTES: Called [facility] regarding patients NPO order. Patient desires to eat. MD to call back regarding order.
[2020-11-02] MEDS ORDERED: Heparin 25,000u/D5W 500ml 500 ML IV SCH ×2 (09:00→17:15)
[2020-11-02] MEDS: Pantoprazole Inj IVP SCH (09:02)
[2020-11-02] MEDS ORDERED: Lisinopril 20mg tab ORAL SCH (14:45)
--- NOTE | 2020-11-02 15:00 | History and Physical ---
History of Present Illness General Date patient seen: Nov 02, 2020 Time patient seen: 09:30 Reason for Hospitalization: Hypertension Present Illness HPI 65F with Pmhx of CAD (S/p CABG 2003 at [facility]), COPD, HTN, and Hypothyroid presents for elevated blood pressure. Patient states that she checked her BP at home prior to admission and the SBP was around 200. She said she felt dizzy at the time and had some chest pressure. At bedside she denies any dizziness or chest tightness. She was in the hospital 1month ago at [facility] for concerns of blue toes and bruising in her arms. She says her medications were changed at that time. She has a list of her current medications from that discharge. She states she has been taking her medications according to her recent discharge instructions. She denies and tobacco or EtOH use. She lives alone, however her landlord lives in the front home and checks on her. She uses a walker to get around. Allergies: Coded Allergies: No Known Allergies (Verified Allergy, Unknown, 09/05/07) COVID-19 Screening Contact w/high risk pt: No Recent Travel to affected area: No Experienced COVID-19 symptoms?: No Medication History Scheduled Amlodipine Besylate/Benazepril 10-40 Mg (Amlodipine-Benazepril 10-40 Mg), 1 CAP PO DAILY, (Reported) Amoxicillin/Potassium Clav 875-125* (Augmentin 875-125 Tablet*), 1 TAB ORAL TWICE A DAY Aspirin Ec* (Aspirin Ec*), 81 MG ORAL DAILY, (Reported) Atorvastatin Calcium* (Lipitor*), 40 MG PO DAILY, (Reported) Dicyclomine Hcl* (Dicyclomine Hcl*), 10 MG ORAL TID Gabapentin* (Gabapentin*), 600 MG PO TID, (Reported) Levothyroxine Sodium* (Levothyroxine Sodium*), 125 MCG PO DAILY, (Reported) Prednisone* (Prednisone*), 20 MG ORAL DAILY Theophylline (Theodur*), 100 MG ORAL EVERY 12 HOURS Scheduled PRN Albuterol Sulfate* (Albuterol Sulfate Mdi*), 2 PUFF INH Q4H PRN for For Cough Carisoprodol* (Soma*), 350 MG PO TID PRN for PRN, (Reported) Hydrocodone Bit/Acetaminophen 10-325* ([place] 10-325*), 1 TAB ORAL Q6H PRN for For Pain, (Reported) Hydrocodone Bit/Acetaminophen 5-325* ([place] 5-325 Tablet*), 1 TAB ORAL Q6H PRN for FOR PAIN Ipratropium/Albuterol Sulfate (Combivent Respimat Inhal [place]), 4 GM IH BID PRN for Shortness of Breath, (Reported) Omeprazole (Omeprazole), 20 MG PO DAILY PRN for GERD, (Reported) Patient History Healthcare decision maker Resuscitation status Full Code Advanced Directive on File Family History Family History: FH: hypertension Social History Social History: (1) Hx of CABG (2) Hypertension (3) COPD with exacerbation (4) CAD (coronary artery disease) (5) Bronchitis Review of Systems Constitutional: Denies: no symptoms, see HPI, chills, sweats, fever, malaise, weakness, other Eye: Denies: no symptoms, see HPI, eye pain, blurred vision, tearing, double vision, nose pain, nose congestion, acuity changes, discharge, other ENT: Denies: no symptoms, see HPI, ear pain, ear discharge, nose pain, nose congestion, throat pain, throat swelling, mouth pain, hearing loss, nasal discharge, other Respiratory: Denies: no symptoms, see HPI, cough, orthopnea, shortness of breath, stridor, wheezing, [place], sputum, other Cardiovascular: Denies: no symptoms, see HPI, chest pain, edema, palpitations, syncope, PND, other Gastrointestinal: Denies: no symptoms, see HPI, abdominal pain, constipation, diarrhea, nausea, vomiting, melena, hematemesis, other Genitourinary: Denies: no symptoms, see HPI, discharge, dysuria, frequency, hematuria, pain, retention, incontinence, urgency, vag bleed/dc, other Musculoskeletal: Denies: no symptoms, see HPI, back pain, gout, joint pain, joint swelling, muscle pain, muscle stiffness, other Skin: Denies: no symptoms, see HPI, rash, change in color, change in hair/nails, dryness, lesions, other Psychiatric: Denies: no symptoms, see HPI, prior hx, anxiety, depressed feelings, emotional problems, SI, HI, hallucinations, other Neurological: Denies: no symptoms, see HPI, headache, numbness, paresthesia, seizure, tingling, tremors, focal weakness, syncope, dizziness, other Endocrine: Denies: no symptoms, see HPI, excessive sweating, flushing, intolerance to temperature, increased thirst, increased urine, unexplained weight loss, other Hematologic/Lymphatic: Denies: no symptoms, see HPI, anemia, blood clots, easy bleeding, easy bruising, swollen glands, diathesis, other Physical Exam General Appearance: no apparent distress HEENT: normocephalic, atraumatic Neck: supple Respiratory/Chest: expiratory wheezing Cardiovascular/Chest: normal rate, regular rhythm Abdomen: non tender, soft Extremities: normal range of motion Skin Exam: warm/dry 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 Last 24 Hour Vital Signs Date Time Temp Pulse Resp B/P (MAP) Pulse Ox O2 Delivery O2 Flow Rate FiO2 11/02/20 12:00 97.0 64 20 167/90 (115) 95 11/02/20 12:00 60 11/02/20 09:03 57 154/84 11/02/20 09:00 Room Air 11/02/20 08:00 97.8 57 18 154/84 (107) 97 11/02/20 08:00 60 11/02/20 04:00 98.2 61 24 157/82 (107) 96 11/02/20 01:21 97.4 66 22 146/90 (108) 97 11/02/20 01:21 65 11/02/20 01:21 Nasal Cannula 2.0 11/02/20 00:31 98.1 73 18 171/80 97 Nasal Cannula 2.0 11/02/20 00:19 98.0 72 20 175/84 96 Nasal Cannula 2.0 11/01/20 23:13 189/91 11/01/20 22:42 98.2 76 20 140/61 96 Nasal Cannula 2.0 11/01/20 20:00 98.1 78 20 154/88 96 Room Air 2.0 11/01/20 19:23 97.7 73 22 168/77 96 Nasal Cannula 4.0 11/01/20 18:00 97.7 76 20 141/89 99 Room Air 11/01/20 16:00 98.0 68 20 155/81 98 Room Air Intake and Output 11/01/20 11/02/20 18:59 06:59 Intake Total 720 ml Balance 720 ml Intake Oral 720 ml # Voids 1 1 Laboratory Tests Test 11/01/20 14:45 11/01/20 15:15 11/02/20 03:48 11/02/20 10:00 White Blood Count 7.9 K/UL (4.8-10.8) 8.8 K/UL (4.8-10.8) Red Blood Count 4.58 M/UL (4.20-5.40) 4.79 M/UL (4.20-5.40) Hemoglobin 14.8 G/DL (12.0-16.0) 15.2 G/DL (12.0-16.0) Hematocrit 42.6 % (37.0-47.0) 44.1 % (37.0-47.0) Mean Corpuscular Volume 93 FL (80-99) 92 FL (80-99) Mean Corpuscular Hemoglobin 32.4 PG (27.0-31.0) H 31.7 PG (27.0-31.0) H Mean Corpuscular Hemoglobin Concent 34.8 G/DL (32.0-36.0) 34.4 G/DL (32.0-36.0) Red Cell Distribution Width 16.4 % (11.6-14.8) H 16.8 % (11.6-14.8) H Platelet Count 246 K/UL (150-450) 267 K/UL (150-450) Mean Platelet Volume 7.4 FL (6.5-10.1) 6.9 FL (6.5-10.1) Neutrophils (%) (Auto) % (45.0-75.0) 77.5 % (45.0-75.0) H Lymphocytes (%) (Auto) % (20.0-45.0) 16.9 % (20.0-45.0) L Monocytes (%) (Auto) % (1.0-10.0) 5.0 % (1.0-10.0) Eosinophils (%) (Auto) % (0.0-3.0) 0.4 % (0.0-3.0) Basophils (%) (Auto) % (0.0-2.0) 0.2 % (0.0-2.0) Differential Total Cells Counted 100 Neutrophils % (Manual) 85 % (45-75) H Lymphocytes % (Manual) 12 % (20-45) L Monocytes % (Manual) 2 % (1-10) Eosinophils % (Manual) 0 % (0-3) Basophils % (Manual) 0 % (0-2) Band Neutrophils 1 % (0-8) Platelet Estimate Adequate Platelet Morphology Normal Polychromasia 1+ Anisocytosis 1+ Ovalocytes 1+ Sodium Level 136 MMOL/L (136-145) 141 MMOL/L (136-145) Potassium Level 4.9 MMOL/L (3.5-5.1) 4.1 MMOL/L (3.5-5.1) Chloride Level 103 MMOL/L (98-107) 106 MMOL/L (98-107) Carbon Dioxide Level 25 MMOL/L (21-32) 34 MMOL/L (21-32) H Anion Gap 8 mmol/L (5-15) 1 mmol/L (5-15) L Blood Urea Nitrogen 46 mg/dL (7-18) H 44 mg/dL (7-18) H Creatinine 2.3 MG/DL (0.55-1.30) H 2.3 MG/DL (0.55-1.30) H Estimat Glomerular Filtration Rate 25.9 mL/min (>60) 25.9 mL/min (>60) Glucose Level 76 MG/DL (74-106) 109 MG/DL (74-106) H Calcium Level 6.9 MG/DL (8.5-10.1) L 7.2 MG/DL (8.5-10.1) L Total Bilirubin 0.4 MG/DL (0.2-1.0) Aspartate Amino Transf (AST/SGOT) 27 U/L (15-37) Alanine Aminotransferase (ALT/SGPT) 21 U/L (12-78) Alkaline Phosphatase 37 U/L (46-116) L Troponin I 0.175 ng/mL (0.000-0.056) 0.195 ng/mL (0.000-0.056) 0.198 ng/mL (0.000-0.056) Total Protein 6.7 G/DL (6.4-8.2) Albumin 3.1 G/DL (3.4-5.0) L Globulin 3.6 g/dL Albumin/Globulin Ratio 0.9 (1.0-2.7) L Urine Color Pale yellow Urine Appearance Clear Urine pH 6 (4.5-8.0) Urine Specific [place] 1.015 (1.005-1.035) Urine Protein 4+ (NEGATIVE) H Urine Glucose (UA) Negative (NEGATIVE) Urine Ketones Negative (NEGATIVE) Urine Blood Negative (NEGATIVE) Urine Nitrite Negative (NEGATIVE) Urine Bilirubin Negative (NEGATIVE) Urine Urobilinogen Normal MG/DL (0.0-1.0) Urine Leukocyte Esterase Negative (NEGATIVE) Urine RBC 0-2 /HPF (0 - 2) Urine WBC 2-4 /HPF (0 - 2) Urine Squamous Epithelial Cells Moderate /LPF (NONE/OCC) H Urine Bacteria Few /HPF (NONE) Prothrombin Time 10.4 SEC (9.30-11.50) Prothromb Time International Ratio 0.9 (0.9-1.1) Activated Partial Thromboplast Time 32 SEC (23-33) Phosphorus Level 4.0 MG/DL (2.5-4.9) Magnesium Level 2.3 MG/DL (1.8-2.4) Triglycerides Level 354 MG/DL (30-150) H Cholesterol Level 230 MG/DL (< 200) H LDL Cholesterol 87 mg/dL (<100) HDL Cholesterol 103 MG/DL (40-60) H Cholesterol/HDL Ratio 2.2 (3.3-4.4) L Height (Feet): 5 Height (Inches): 6.00 Weight (Pounds): 193 Medications Current Medications Medications (Trade) Dose Ordered Sig/Jose Route PRN Reason Start Time Stop Time Status Last Admin Dose Admin Acetaminophen/ Hydrocodone Bitart ([place] 5/325) 1 tab Q4H PRN ORAL Moderate Pain (Pain Scale 4-6) 11/02/20 03:00 11/09/20 02:59 11/02/20 14:13 Albuterol/ Ipratropium (Albuterol/ Ipratropium) 3 ml Q4HRT PRN HHN Shortness of Breath 11/02/20 03:00 11/07/20 02:59 Amlodipine Besylate (Norvasc) 10 mg DAILY ORAL 11/02/20 09:00 12/02/20 08:59 11/02/20 09:03 Atorvastatin Calcium (Lipitor) 40 mg BEDTIME ORAL 11/02/20 21:00 01/31/21 20:59 Furosemide (Lasix) 40 mg DAILY ORAL 11/03/20 09:00 12/03/20 08:59 Gabapentin (Neurontin) 600 mg DAILY ORAL 11/02/20 09:00 12/02/20 08:59 11/02/20 09:02 Heparin Sodium/ Dextrose 500 ml @ 20.856 mls/ hr ADJUST PER PROTOCOL IV 11/02/20 09:00 12/02/20 08:59 11/02/20 09:00 Levothyroxine Sodium (Synthroid) 100 mcg DAILY@0630 ORAL 11/02/20 06:30 12/02/20 06:29 11/02/20 06:40 Lisinopril (PriniviL) 40 mg DAILY ORAL 11/02/20 14:45 12/02/20 14:44 Metoprolol Succinate (Toprol XL) 50 mg DAILY ORAL 11/02/20 14:45 01/31/21 14:44 Pantoprazole (Protonix) 40 mg DAILY IVP 11/02/20 09:00 12/02/20 08:59 11/02/20 09:02 Prednisone (predniSONE) 10 mg ONCE ORAL 11/02/20 14:45 11/02/20 16:00 Assessment/Plan Status: progressing Assessment/Plan: #Hypertensive Urgency #Chest Pain #Tropinemia Initial presentation with elevated BP and symptoms of dizziness that have resolved. - Trend Trop q6 - Restart HTN medications - lasix, metop, amlodipine, lisinopril - Continued on Heparin gtt for concern for NSTEMI - EKG prn for chest pain - Continue aspirin, statin - Patient on Plavix and Imdur that she says was recently started - Cardiology consultation #HTN - Restart home metop, lasix, amlodipine, and lisinopril #COPD - duonebs q6 while awake - previously on prednisone 20mg for 1mo, will taper to 10mg - start inhaler #Hypothyroidism - Continue home levothyroxine Diet Regular FEN Full Code Time spent 75 minutes with 32 minutes spent with care coordination, review of labs, imaging and counseling. D/w nursing staff and consultants. Time of note does not reflect time of encounter Magdalena Morel M.D. Nov 02, 2020 15:00
[2020-11-02] MEDS: Metoprolol Succinate XL 50mg tab ORAL SCH (15:03)
--- NOTE | 2020-11-02 15:42 | NUR ---
CASE MANAGEMENT:REVIEW SENT BY PCP SI: ACS. HTN. RENAL FAILURE 98.6 68 18 178/98 98% ON RA BUN+46 CR+2.3 TROPONIN(+) 0.175 IS: ASA PO PERCOCET PO CXR : TO TELEMETRY
--- NOTE | 2020-11-02 16:41 | NUR ---
[facility]ANCE [facility]/REVIEW FAXED (11/01-11/02) [phone] PH [phone]
[2020-11-02] MEDS ORDERED: Heparin 5000 units/ml inj IV SCH (17:15)
--- NOTE | 2020-11-02 19:29 | NUR ---
NURSE HAND-OFF REPORT: Important Events on Shift:[started on Heparin Drip] Patient Status: [stable, full code and aaox4] Diet: [Regular diet] Pending Orders: [N/A] Pending Results/Labs:[PTT] Pending MD notification:[N/A] Latest Vital Signs: Temperature 98.0 , Pulse 67 , B/P 152 /77 , Respiratory Rate 18 , O2 SAT 96 , Room Air, O2 Flow Rate 2.0 . Vital Sign Comment: [] EKG Rhythm: Sinus Rhythm Rhythm change?: N MD Notified?: - MD Response: Latest [place] Fall Score: 45 Fall Risk: High Risk Safety Measures: Call light Within Reach, Bed Alarm Zone 1, Side Rails Side Rails x2, Bed position Low and Locked. Fall Precautions: Yellow Socks Patient Fall Education Report given to [NANCIE Aguilar].
--- NOTE | 2020-11-02 19:30 | NUR ---
NURSE NOTES: Received pt and report from NANCIE Null. Observed pt resting in bed with both eyes closed; arousable to voice. Pt is A/Ox4. pit furnace melter is in placed; pt is NSR. IV site intact, asymptomatic, and patent; running Heparin drip at 16 units/kg/hr = 27.808cc/hr. No bleeding noted. Next PTT draw is at 2320. Bed is in the lowest position and locked. Call light and bedside table is within reach. No signs/symptoms of acute distress noted. Will continue plan of care.
[2020-11-02] MEDS: Atorvastatin 20mg tab ORAL SCH (21:30)
--- NOTE | 2020-11-02 22:24 | NUR ---
NURSE NOTES: Notified Dr. Heaton that pt's BP has been elevated. Most recent BP was 160/79, HR 60. Dr. Heaton ordered Hydralazine 50mg PO Q8HR PRN for SBP >160. Will note and carry out.
[2020-11-03] VITALS: BP 150/85
--- NOTE | 2020-11-03 00:41 | NUR ---
NURSE NOTES: Pt's PTT result came back at >150. Per pharmacist, Rupali, hold heparin drip for one hour and restart at new ordered rate. Will note and carry out.
[2020-11-03] MEDS: Heparin 25,000u/D5W 500ml 500 ML IV SCH ×2 (01:33→15:50)
[2020-11-03 04:00] VITALS: BP 167/83
[2020-11-03] MEDS: HydrALAZINE 50mg tab ORAL PRN (05:14)
[2020-11-03] MEDS: HYDROcodone/Acetamin 5/325 tab ORAL PRN ×4 (05:15→22:17)
--- NOTE | 2020-11-03 07:23 | NUR ---
NURSE NOTES: Patient seen in bed with semifowlers position,aao x4, with no acute signs or complaints of distress. The patient denies pain of level 0/10. The patient is on supplemental oxygen NC with 2L/min and on heparin drip. The patients bed is in lowest position, locked, side rails x2, call light within reach and bed alarm in zone 1. patient education on fall precautions and risk due to heparin drip.
--- NOTE | 2020-11-03 07:23 | NUR ---
NURSE HAND-OFF REPORT: Important Events on Shift: Notified Dr. Heaton that pt was SR with 1st degree HB. No new orders. Heparin drip rate changed to 12 units/kg/hr. Patient Status: Stable Diet: Regular Pending Orders: N Pending Results/Labs: PTT Pending MD notification: N Latest Vital Signs: Temperature 97.5 , Pulse 59 , B/P 167 /83 , Respiratory Rate 19 , O2 SAT 96 , Nasal Cannula, O2 Flow Rate 2.0 . EKG Rhythm: SB w/ 1st degree HB Rhythm change?: N MD Notified?: Y -Dr. Sudarshan HOWARD Response: No New Orders Received Latest [place] Fall Score: 45 Fall Risk: High Risk Safety Measures: Call light Within Reach, Bed Alarm Zone 1, Side Rails Side Rails x2, Bed position Low and Locked. Fall Precautions: Yellow Socks Patient Fall Education Report given to NANCIE Null.
[2020-11-03 08:00] VITALS: BP 158/78
[2020-11-03] MEDS ORDERED: Lexiscan 0.4mg/5ml syringe IV PRN (08:19)
[2020-11-03] MEDS: Metoprolol Succinate XL 50mg tab ORAL SCH (08:49)
[2020-11-03] MEDS: Furosemide 40mg tab ORAL SCH (08:50)
[2020-11-03] MEDS: Pantoprazole Inj IVP SCH (08:51)
--- NOTE | 2020-11-03 09:26 | NUR ---
CARDIOLOGY Dr. Antoine is not comfortable doing the stress test with patients current condition.
--- NOTE | 2020-11-03 09:36 | NUR ---
CASE MANAGEMENT:REVIEW 11/03/20 SI: HTN URGENCY. ACS. COPD 97.5 102 19 158/78 96% ON 2L/NC TROPONIN(+) 0.190 IS: IV LEXISCAN X1 HEPARIN GTT LASIX PO QD LIPITOR PO QHS SPIRIVA INH BID TOPROL XL PO QD IV PROTONIX QD NEURONTIN PO QD : TELEMETRY STATUS DCP: FROM HOME PLAN: STRESS TEST FOR TODAY
--- NOTE | 2020-11-03 10:15 | NUR ---
NURSE NOTES: Patient has been scheduled a Cardiac stress test. Per protocol we have given patient stress test information sheet and patient education on the test. Patient states "I have had three or four done in the past".
--- NOTE | 2020-11-03 10:23 | NUR ---
NURSE NOTES: Cardiology department was called for information on time frame of patients stress test. Toño from cardiology informed us that Dr. Allen has cancelled cardiac stress test today due to patients wheezing and elevated troponin levels. Toño will inform Dr. Rubin if he would like to perform stress test tomorrow 11/04. Toño was made aware that patient states " when I have the stress test my muscles begin to cramp after test. Patient will be placed on NPO at midnight for possible stress test tomorrow 11/04.
--- NOTE | 2020-11-03 10:30 | NUR ---
NURSE NOTES: Pharmacy called to put patients heparin drip on hold due to pending PTT level that was drawn at 0730 by laboratory. Patients heparin drip has been held and will resume once PTT has resulted and pharmacy has made any adjustments to rate if necessary.
--- NOTE | 2020-11-03 10:50 | NUR ---
NURSE NOTES: Pharmacy called to update on patients ptt which was in therapeutic range. Patients heparin drip was restarted at 12 units/kg/hr. PTT was ordered to be drawn 11/04 at 0400 to recheck ptt level.
[2020-11-03] MEDS ORDERED: Albuterol 90mcg Inhaler 8gm INH PRN ×2 (11:00→13:15)
--- NOTE | 2020-11-03 11:05 | NUR ---
NURSE NOTES: Soma 350 mg continued from home meds per Dr Morel. Albuterol inhaler PRN added to medication per Dr Morel.
[2020-11-03 11:24] LABS: CREATININE 1.9 MG/DL (0.55-1.30)
[2020-11-03 12:00] VITALS: BP 164/81
[2020-11-03 12:47] LABS: CALCIUM 6.8 MG/DL (8.5-10.1); CREATININE 1.9 MG/DL (0.55-1.30); POTASSIUM 4.2 MMOL/L (3.5-5.1)
--- NOTE | 2020-11-03 12:47 | NUR ---
NURSE NOTES: Per Dr Morel, received order to rapid swab for COVID so pt can receive breathing treatment via nebulizer. Martina RN packaging supervisor called for approval of rapid swab. Rn packaging supervisor to f/u on approval.
--- NOTE | 2020-11-03 12:52 | Consultation ---
History of Present Illness General Date patient seen: Nov 03, 2020 Time patient seen: 12:50 Chief Complaint: Hypertension Present Illness HPI 65F with Pmhx of CAD (S/p CABG 2004 at [facility]), COPD, HTN, and Hypothyroid presents for elevated blood pressure. Patient states that she checked her BP at home prior to admission and the SBP was around 200. She said she felt dizzy at the time and had some chest pressure. At bedside she denies any dizziness or chest tightness. She was in the hospital 1month ago at [facility] for concerns of blue toes and bruising in her arms. She says her medications were changed at that time. She has a list of her current medications from that discharge. She states she has been taking her medications according to her recent discharge instructions. She denies and tobacco or EtOH use. She lives alone, however her landlord lives in the front home and checks on her. She uses a walker to get around. Allergies: Coded Allergies: No Known Allergies (Verified Allergy, Unknown, 09/05/07) Medication History Scheduled Amlodipine Besylate/Benazepril 10-40 Mg (Amlodipine-Benazepril 10-40 Mg), 1 CAP PO DAILY, (Reported) Amoxicillin/Potassium Clav 875-125* (Augmentin 875-125 Tablet*), 1 TAB ORAL TWICE A DAY Aspirin Ec* (Aspirin Ec*), 81 MG ORAL DAILY, (Reported) Atorvastatin Calcium* (Lipitor*), 40 MG PO DAILY, (Reported) Dicyclomine Hcl* (Dicyclomine Hcl*), 10 MG ORAL TID Gabapentin* (Gabapentin*), 600 MG PO TID, (Reported) Levothyroxine Sodium* (Levothyroxine Sodium*), 125 MCG PO DAILY, (Reported) Prednisone* (Prednisone*), 20 MG ORAL DAILY Theophylline (Theodur*), 100 MG ORAL EVERY 12 HOURS Scheduled PRN Albuterol Sulfate* (Albuterol Sulfate Mdi*), 2 PUFF INH Q4H PRN for For Cough Carisoprodol* (Soma*), 350 MG PO TID PRN for PRN, (Reported) Hydrocodone Bit/Acetaminophen 10-325* ([place] 10-325*), 1 TAB ORAL Q6H PRN for For Pain, (Reported) Hydrocodone Bit/Acetaminophen 5-325* ([place] 5-325 Tablet*), 1 TAB ORAL Q6H PRN for FOR PAIN Ipratropium/Albuterol Sulfate (Combivent Respimat Inhal [place]), 4 GM IH BID PRN for Shortness of Breath, (Reported) Omeprazole (Omeprazole), 20 MG PO DAILY PRN for GERD, (Reported) Patient History Healthcare decision maker Resuscitation status Advanced Directive on File Review of Systems Constitutional: Reports: no symptoms Eye: Reports: no symptoms ENT: Reports: no symptoms Respiratory: Reports: no symptoms Cardiovascular: Reports: chest pain Gastrointestinal: Reports: no symptoms Genitourinary: Reports: no symptoms Musculoskeletal: Reports: no symptoms Skin: Reports: no symptoms Neurological: Reports: no symptoms Endocrine: Reports: no symptoms Physical Exam General Appearance: no apparent distress, alert Lines, tubes and drains: peripheral HEENT: normocephalic, atraumatic Neck: non-tender, normal alignment, supple Respiratory/Chest: chest wall non-tender, lungs clear, normal breath sounds Cardiovascular/Chest: normal peripheral pulses, normal rate, regular rhythm Abdomen: normal bowel sounds, non tender, soft, no mass Extremities: normal range of motion, normal inspection Skin Exam: normal pigmentation 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, no motor/sensory deficits Last 24 Hour Vital Signs Date Time Temp Pulse Resp B/P (MAP) Pulse Ox O2 Delivery O2 Flow Rate FiO2 11/03/20 12:00 97.5 93 18 164/81 (108) 92 11/03/20 12:00 53 11/03/20 09:00 Nasal Cannula 2.0 11/03/20 08:51 102 158/78 11/03/20 08:49 102 158/78 11/03/20 08:00 96.9 102 18 158/78 (104) 92 11/03/20 08:00 65 11/03/20 05:14 167/83 11/03/20 04:00 57 11/03/20 04:00 97.5 59 19 167/83 (111) 96 11/03/20 00:00 72 11/03/20 00:00 96.1 61 20 150/85 (106) 96 11/02/20 21:00 Nasal Cannula 2.0 11/02/20 20:00 97.5 60 20 160/79 (106) 97 11/02/20 20:00 57 11/02/20 18:47 98.0 11/02/20 16:00 98.0 61 18 152/77 (102) 96 11/02/20 16:00 67 11/02/20 15:03 167/90 11/02/20 15:03 64 167/90 Intake and Output 11/02/20 11/03/20 19:00 07:00 Intake Total 600 ml 340 ml Balance 600 ml 340 ml Intake Oral 600 ml 340 ml # Voids 3 3 Laboratory Tests Test 11/02/20 15:55 11/02/20 23:20 11/03/20 08:30 11/03/20 11:20 Activated Partial Thromboplast Time 36 SEC (23-33) H > 150 SEC (23-33) *H 84 SEC (23-33) H Troponin I 0.198 ng/mL (0.000-0.056) 0.190 ng/mL (0.000-0.056) 0.150 ng/mL (0.000-0.056) 0.145 ng/mL (0.000-0.056) Sodium Level 139 MMOL/L (136-145) Potassium Level 4.2 MMOL/L (3.5-5.1) Chloride Level 107 MMOL/L (98-107) Carbon Dioxide Level 26 MMOL/L (21-32) Anion Gap 6 mmol/L (5-15) Blood Urea Nitrogen 32 mg/dL (7-18) H Creatinine 1.9 MG/DL (0.55-1.30) H Estimat Glomerular Filtration Rate 32.2 mL/min (>60) Glucose Level 89 MG/DL (74-106) Calcium Level 6.8 MG/DL (8.5-10.1) L Height (Feet): 5 Height (Inches): 6.00 Weight (Pounds): 193 Medications Current Medications Medications (Trade) Dose Ordered Sig/Jose Route PRN Reason Start Time Stop Time Status Last Admin Dose Admin Acetaminophen/ Hydrocodone Bitart ([place] 5/325) 1 tab Q4H PRN ORAL Moderate Pain (Pain Scale 4-6) 11/02/20 03:00 11/09/20 02:59 11/03/20 12:00 Albuterol/ Ipratropium (Albuterol/ Ipratropium) 3 ml Q4HRT PRN HHN Shortness of Breath 11/02/20 03:00 11/07/20 02:59 Amlodipine Besylate (Norvasc) 10 mg DAILY ORAL 11/02/20 09:00 12/02/20 08:59 11/03/20 08:51 Atorvastatin Calcium (Lipitor) 40 mg BEDTIME ORAL 11/02/20 21:00 01/31/21 20:59 11/02/20 21:30 Carisoprodol (Soma) 350 mg TIDPRN PRN ORAL muscle spasm 11/03/20 11:00 12/03/20 10:59 11/03/20 12:01 Furosemide (Lasix) 40 mg DAILY ORAL 11/03/20 09:00 12/03/20 08:59 11/03/20 08:50 Gabapentin (Neurontin) 600 mg DAILY ORAL 11/02/20 09:00 12/02/20 08:59 11/03/20 08:50 Heparin Sodium/ Dextrose 500 ml @ 20.856 mls/ hr ADJUST PER PROTOCOL IV 11/03/20 01:30 12/03/20 01:29 11/03/20 01:33 Hydralazine HCl (Apresoline) 50 mg Q8H PRN ORAL For High Blood Pressure 11/02/20 22:30 01/31/21 22:29 11/03/20 05:14 Levothyroxine Sodium (Synthroid) 100 mcg DAILY@0630 ORAL 11/02/20 06:30 12/02/20 06:29 11/03/20 06:13 Metoprolol Succinate (Toprol XL) 50 mg DAILY ORAL 11/02/20 14:45 01/31/21 14:44 11/03/20 08:49 Pantoprazole (Protonix) 40 mg DAILY IVP 11/02/20 09:00 12/02/20 08:59 11/03/20 08:51 Regadenoson (Lexiscan) 0.4 mg ONCE PRN IV cardiology 11/03/20 08:19 11/05/20 23:59 Tiotropium [place] (Spiriva Inhaler) 1 puff TWICE A DAY INH 11/02/20 18:00 12/02/20 17:59 11/03/20 08:52 Assessment/Plan Status: doing well, stable Assessment/Plan: Assessment/Plan: #Hypertensive Urgency #Chest Pain #Tropinemia - Trend Trop q6 - Restart HTN medications - lasix, metop, amlodipine, lisinopril - Continued on Heparin gtt for concern for NSTEMI - EKG prn for chest pain - Continue aspirin, statin - Stress test to evaluate ischemia - Nitro prn #HTN - Restart home metop, lasix, amlodipine, and lisinopril #Hypothyroidism - Continue home levothyroxine Ed Escobedo MD Nov 03, 2020 12:52
--- NOTE | 2020-11-03 13:13 | Consultation ---
History of Present Illness General Chief Complaint: Hypertension Reason for Consultation: OVI Present Illness HPI 65F with Pmhx of CAD (S/p CABG 2004 at [facility]), COPD, HTN, and Hypothyroid presents for elevated blood pressure. Patient states that she checked her BP at home prior to admission and the SBP was around 200. She said she felt dizzy at the time and had some chest pressure. At bedside she denies any dizziness or chest tightness. She was in the hospital 1month ago at [facility] for concerns of blue toes and bruising in her arms. She says her medications were changed at that time. She has a list of her current medications from that discharge. She states she has been taking her medications according to her recent discharge instructions. She denies and tobacco or EtOH use. She lives alone, however her landlord lives in the front home and checks on her. She uses a walker to get around. Allergies: Coded Allergies: No Known Allergies (Verified Allergy, Unknown, 09/05/07) Medication History Scheduled Amlodipine Besylate/Benazepril 10-40 Mg (Amlodipine-Benazepril 10-40 Mg), 1 CAP PO DAILY, (Reported) Amoxicillin/Potassium Clav 875-125* (Augmentin 875-125 Tablet*), 1 TAB ORAL TWICE A DAY Aspirin Ec* (Aspirin Ec*), 81 MG ORAL DAILY, (Reported) Atorvastatin Calcium* (Lipitor*), 40 MG PO DAILY, (Reported) Dicyclomine Hcl* (Dicyclomine Hcl*), 10 MG ORAL TID Gabapentin* (Gabapentin*), 600 MG PO TID, (Reported) Levothyroxine Sodium* (Levothyroxine Sodium*), 125 MCG PO DAILY, (Reported) Prednisone* (Prednisone*), 20 MG ORAL DAILY Theophylline (Theodur*), 100 MG ORAL EVERY 12 HOURS Scheduled PRN Albuterol Sulfate* (Albuterol Sulfate Mdi*), 2 PUFF INH Q4H PRN for For Cough Carisoprodol* (Soma*), 350 MG PO TID PRN for PRN, (Reported) Hydrocodone Bit/Acetaminophen 10-325* (Recluse 10-325*), 1 TAB ORAL Q6H PRN for For Pain, (Reported) Hydrocodone Bit/Acetaminophen 5-325* (Recluse 5-325 Tablet*), 1 TAB ORAL Q6H PRN for FOR PAIN Ipratropium/Albuterol Sulfate (Combivent Respimat Inhal Taylor), 4 GM IH BID PRN for Shortness of Breath, (Reported) Omeprazole (Omeprazole), 20 MG PO DAILY PRN for GERD, (Reported) Patient History Healthcare decision maker Resuscitation status Advanced Directive on File Review of Systems All Other Systems: negative except mentioned in HPI Physical Exam General Appearance: no apparent distress, alert Lines, tubes and drains: peripheral HEENT: normocephalic, atraumatic Neck: non-tender, normal alignment, supple Respiratory/Chest: chest wall non-tender, lungs clear, normal breath sounds Cardiovascular/Chest: normal peripheral pulses, normal rate, regular rhythm Abdomen: normal bowel sounds, non tender, soft Neurologic: alert, oriented x 3 Last 24 Hour Vital Signs Date Time Temp Pulse Resp B/P (MAP) Pulse Ox O2 Delivery O2 Flow Rate FiO2 11/03/20 12:00 97.5 93 18 164/81 (108) 92 11/03/20 12:00 53 11/03/20 09:00 Nasal Cannula 2.0 11/03/20 08:51 102 158/78 11/03/20 08:49 102 158/78 11/03/20 08:00 96.9 102 18 158/78 (104) 92 11/03/20 08:00 65 11/03/20 05:14 167/83 11/03/20 04:00 57 11/03/20 04:00 97.5 59 19 167/83 (111) 96 11/03/20 00:00 72 11/03/20 00:00 96.1 61 20 150/85 (106) 96 11/02/20 21:00 Nasal Cannula 2.0 11/02/20 20:00 97.5 60 20 160/79 (106) 97 11/02/20 20:00 57 11/02/20 18:47 98.0 11/02/20 16:00 98.0 61 18 152/77 (102) 96 11/02/20 16:00 67 11/02/20 15:03 167/90 11/02/20 15:03 64 167/90 Intake and Output 11/02/20 11/03/20 19:00 07:00 Intake Total 600 ml 340 ml Balance 600 ml 340 ml Intake Oral 600 ml 340 ml # Voids 3 3 Laboratory Tests Test 11/02/20 15:55 11/02/20 23:20 11/03/20 08:30 11/03/20 11:20 Activated Partial Thromboplast Time 36 SEC (23-33) H > 150 SEC (23-33) *H 84 SEC (23-33) H Troponin I 0.198 ng/mL (0.000-0.056) 0.190 ng/mL (0.000-0.056) 0.150 ng/mL (0.000-0.056) 0.145 ng/mL (0.000-0.056) Sodium Level 139 MMOL/L (136-145) Potassium Level 4.2 MMOL/L (3.5-5.1) Chloride Level 107 MMOL/L (98-107) Carbon Dioxide Level 26 MMOL/L (21-32) Anion Gap 6 mmol/L (5-15) Blood Urea Nitrogen 32 mg/dL (7-18) H Creatinine 1.9 MG/DL (0.55-1.30) H Estimat Glomerular Filtration Rate 32.2 mL/min (>60) Glucose Level 89 MG/DL (74-106) Calcium Level 6.8 MG/DL (8.5-10.1) L Height (Feet): 5 Height (Inches): 6.00 Weight (Pounds): 193 Medications Current Medications Medications (Trade) Dose Ordered Sig/Jose Route PRN Reason Start Time Stop Time Status Last Admin Dose Admin Acetaminophen/ Hydrocodone Bitart (Recluse 5/325) 1 tab Q4H PRN ORAL Moderate Pain (Pain Scale 4-6) 11/02/20 03:00 11/09/20 02:59 11/03/20 12:00 Albuterol Sulfate (Proventil MDI) 2 puff Q4H PRN INH Shortness of Breath 11/03/20 13:15 02/01/21 13:14 Amlodipine Besylate (Norvasc) 10 mg DAILY ORAL 11/02/20 09:00 12/02/20 08:59 11/03/20 08:51 Atorvastatin Calcium (Lipitor) 40 mg BEDTIME ORAL 11/02/20 21:00 01/31/21 20:59 11/02/20 21:30 Carisoprodol (Soma) 350 mg TIDPRN PRN ORAL muscle spasm 11/03/20 11:00 12/03/20 10:59 11/03/20 12:01 Furosemide (Lasix) 40 mg DAILY ORAL 11/03/20 09:00 12/03/20 08:59 11/03/20 08:50 Gabapentin (Neurontin) 600 mg DAILY ORAL 11/02/20 09:00 12/02/20 08:59 11/03/20 08:50 Heparin Sodium/ Dextrose 500 ml @ 20.856 mls/ hr ADJUST PER PROTOCOL IV 11/03/20 01:30 12/03/20 01:29 11/03/20 01:33 Hydralazine HCl (Apresoline) 50 mg Q8H PRN ORAL For High Blood Pressure 11/02/20 22:30 01/31/21 22:29 11/03/20 05:14 Levothyroxine Sodium (Synthroid) 100 mcg DAILY@0630 ORAL 11/02/20 06:30 12/02/20 06:29 11/03/20 06:13 Metoprolol Succinate (Toprol XL) 50 mg DAILY ORAL 11/02/20 14:45 01/31/21 14:44 11/03/20 08:49 Pantoprazole (Protonix) 40 mg DAILY IVP 11/02/20 09:00 12/02/20 08:59 11/03/20 08:51 Regadenoson (Lexiscan) 0.4 mg ONCE PRN IV cardiology 11/03/20 08:19 11/05/20 23:59 Tiotropium [place] (Spiriva Inhaler) 1 puff TWICE A DAY INH 11/02/20 18:00 12/02/20 17:59 11/03/20 08:52 Assessment/Plan Diagnosis [place] I: #OVI vs OVI on CKD #CAD (S/p CABG 2004 at [facility]) # COPD # HTN- elevated # Hypothyroid - admitted to tele - resume on lasix 40mg daily - amlodipine 10mg daily - hydralazine 50mg TID - 2d echo - monitor renal function - avoid nephrotoxins time spent 65min Anika Tejada M.D. Nov 03, 2020 13:13
--- NOTE | 2020-11-03 14:43 | General Progress Note ---
Subjective Date patient seen: Nov 03, 2020 Time patient seen: 10:58 Constitutional: Denies: no symptoms, chills, diaphoresis, fever, malaise, weakness, other Cardiovascular: Denies: no symptoms, chest pain, edema, irregular heart rate, lightheadedness, palpitations, syncope, other Respiratory: Denies: no symptoms, cough, orthopnea, shortness of breath, SOB with excertion, SOB at rest, sputum, stridor, wheezing, other Gastrointestinal/Abdominal: Denies: no symptoms, abdomen distended, abdominal pain, black stools, tarry stools, blood in stool, constipated, diarrhea, difficulty swallowing, nausea, poor appetite, poor fluid intake, rectal bleeding, vomiting, other Genitourinary: Denies: no symptoms, burning, discharge, frequency, flank pain, hematuria, incontinence, pain, urgency, other Neurologic/Psychiatric: Denies: no symptoms, anxiety, depressed, emotional problems, headache, numbness, paresthesia, pre-existing deficit, seizure, tingling, tremors, weakness, other Endocrine: Denies: no symptoms, excessive sweating, flushing, intolerance to cold, intolerance to heat, increased hunger, increased thirst, increased urine, unexplained weight gain, unexplained weight loss, other Hematologic/Lymphatic: Denies: no symptoms, anemia, easy bleeding, easy bruising, other Allergies: Coded Allergies: No Known Allergies (Verified Allergy, Unknown, 09/05/07) Subjective NAEO BP a little high overnight No complaints of n/v dizziness Cardiology to see patient Objective Last 24 Hour Vital Signs Date Time Temp Pulse Resp B/P (MAP) Pulse Ox O2 Delivery O2 Flow Rate FiO2 11/03/20 12:00 97.5 93 18 164/81 (108) 92 11/03/20 12:00 53 11/03/20 09:00 Nasal Cannula 2.0 11/03/20 08:51 102 158/78 11/03/20 08:49 102 158/78 11/03/20 08:00 96.9 102 18 158/78 (104) 92 11/03/20 08:00 65 11/03/20 05:14 167/83 11/03/20 04:00 57 11/03/20 04:00 97.5 59 19 167/83 (111) 96 11/03/20 00:00 72 11/03/20 00:00 96.1 61 20 150/85 (106) 96 11/02/20 21:00 Nasal Cannula 2.0 11/02/20 20:00 97.5 60 20 160/79 (106) 97 11/02/20 20:00 57 11/02/20 18:47 98.0 11/02/20 16:00 98.0 61 18 152/77 (102) 96 11/02/20 16:00 67 11/02/20 15:03 167/90 11/02/20 15:03 64 167/90 Intake and Output 11/02/20 11/03/20 19:00 07:00 Intake Total 600 ml 340 ml Balance 600 ml 340 ml Intake Oral 600 ml 340 ml # Voids 3 3 Laboratory Tests 11/02/20 15:55: Activated Partial Thromboplast Time 36H, Troponin I 0.198H 11/02/20 23:20: Activated Partial Thromboplast Time > 150*H, Troponin I 0.190H 11/03/20 08:30: Activated Partial Thromboplast Time 84H, Troponin I 0.150H, Sodium Level 139, Potassium Level 4.2, Chloride Level 107, Carbon Dioxide Level 26, Anion Gap 6, Blood Urea Nitrogen 32H, Creatinine 1.9H, Estimat Glomerular Filtration Rate 32.2, Glucose Level 89, Calcium Level 6.8L 11/03/20 11:20: Troponin I 0.145H Height (Feet): 5 Height (Inches): 6.00 Weight (Pounds): 193 General Appearance: no apparent distress, alert EENT: PERRL/EOMI Neck: supple Cardiovascular: normal rate, regular rhythm Respiratory/Chest: normal breath sounds, expiratory wheezing Abdomen: non tender, soft Extremities: normal range of motion Neurologic: oriented x 3 Skin: warm/dry Assessment/Plan Status: doing well, stable Assessment/Plan: #Hypertensive Urgency #Chest Pain #Tropinemia Initial presentation with elevated BP and symptoms of dizziness that have resolved. - Trend Trop q6, trending down - Restart HTN medications - lasix, metop, amlodipine, lisinopril - Continued on Heparin gtt for concern for NSTEMI - EKG prn for chest pain - Continue aspirin, statin - Cardiology consultation - NPO midnight for Lexiscan tomorrow #HTN - Restart home metop, lasix, amlodipine, and lisinopril #COPD - duonebs q6 while awake - previously on prednisone 20mg for 1mo, will taper to 10mg - started Atrovent #Hypothyroidism - Continue home levothyroxine #Muscle Spasm - restarted home soma Diet Regular, NPO midnight FEN Full Code Time spent 35 minutes with 17 minutes spent with care coordination, review of labs, imaging and counseling. D/w nursing staff and consultants. Time of note does not reflect time of encounter Magdalena Morel M.D. Nov 03, 2020 14:42
[2020-11-03 16:00] VITALS: BP 140/78
--- NOTE | 2020-11-03 19:13 | NUR ---
NURSE HAND-OFF REPORT: Important Events on Shift:[Rescheduled cardiac stress test for 11/04, Renal US, Heparin drip monitoring] Patient Status: [stable, aaox4 and full code] Diet: [Regular diet] Pending Orders: [N/A] Pending Results/Labs:[N/A] Pending MD notification:[N/A] Latest Vital Signs: Temperature 97.7 , Pulse 101 , B/P 140 /78 , Respiratory Rate 18 , O2 SAT 96 , Nasal Cannula, O2 Flow Rate 2.0 . Vital Sign Comment: [] EKG Rhythm: Sinus Bradycardia Rhythm change?: N MD Notified?: Ash Heaton MD Response: No New Orders Received Latest [place] Fall Score: 45 Fall Risk: High Risk Safety Measures: Call light Within Reach, Bed Alarm Zone 1, Side Rails Side Rails x2, Bed position Low and Locked. Fall Precautions: Yellow Socks Patient Fall Education Report given to [NANCIE Myers].
--- NOTE | 2020-11-03 19:20 | NUR ---
NURSE NOTES: Report received from NANCIE Muniz. Patient is awake on bed, alert and oriented x 4. On renal diet, instructed and amenable. On regular diet, instructed and amenable. IV site is on left AC g-20 running heparin 12 units/kg/hour(20.8 cc/hour) that is patent and intact. Safety measures are in place, be din lowest and locked position, side rails up x 2, call light button and bedside table within reach, instructed to call for any assistance needed. Will continue plan of care.
[2020-11-03 20:00] VITALS: BP 134/69
[2020-11-03] MEDS: Atorvastatin 20mg tab ORAL SCH (21:22)
[2020-11-04] VITALS (7 sets, daily range): BP systolic 135–171; BP diastolic 68–97
[2020-11-04] MEDS: HydrALAZINE 50mg tab ORAL PRN (04:54)
[2020-11-04] MEDS ORDERED: Heparin 25,000u/D5W 500ml 500 ML IV SCH ×3 (06:00→22:15)
[2020-11-04] MEDS ORDERED: Heparin 5000 units/ml inj IV SCH (06:00)
--- NOTE | 2020-11-04 07:30 | NUR ---
NURSE HAND-OFF REPORT: Important Events on Shift: Patient has been resting well. Result of PTT at 0400 was 46. Patient Status: Patient is awake on bed,in stable condition with no complaints made at this time. Diet: CCHO (Medium) Pending Orders: Lexiscan today and PTT at 1200 Pending Results/Labs:none Pending MD notification:none Latest Vital Signs: Temperature 97.6 , Pulse 51 , B/P 163 /90 , Respiratory Rate 18 , O2 SAT 96 , Nasal Cannula, O2 Flow Rate 2.0 . Vital Sign Comment: elevated EKG Rhythm: Sinus Bradycardia Rhythm change?: Y Notified?: Ash Ayala MD Response: Message left await call Latest [place] Fall Score: 20 Fall Risk: Low Risk Safety Measures: Call light Within Reach, Bed Alarm Zone 1, Side Rails Side Rails x2, Bed position Low and Locked. Fall Precautions: Yellow Socks Patient Fall Education Report given to NANCIE King.
--- NOTE | 2020-11-04 08:43 | NUR ---
NURSE HAND-OFF REPORT: Important Events on Shift:[]Report given to NANCIE Sanchez Patient Status: [full code] Diet: [NPO] Pending Orders: [] Pending Results/Labs:[] Pending MD notification:[] Latest Vital Signs: Temperature 96.2 , Pulse 59 , B/P 159 /80 , Respiratory Rate 18 , O2 SAT 100 , Nasal Cannula, O2 Flow Rate 2.0 . Vital Sign Comment: [] EKG Rhythm: Sinus Bradycardia Rhythm change?: Y Notified?: Y -Dr. Jamie HOWARD Response: Message left await call Latest Thorpe Fall Score: 20 Fall Risk: Low Risk Safety Measures: Call light Within Reach, Bed Alarm Zone 1, Side Rails Side Rails x2, Bed position Low and Locked. Fall Precautions: Yellow Socks Patient Fall Education Report given to [NANCIE Sanchez].
--- NOTE | 2020-11-04 08:48 | NUR ---
NURSE NOTES: Called Dr Escobedo to let him know patient had 5 beats of V-tach this morning. No new orders at this time.
[2020-11-04] MEDS: Furosemide 40mg tab ORAL SCH (09:10)
[2020-11-04] MEDS: Metoprolol Succinate XL 50mg tab ORAL SCH (09:11)
[2020-11-04] MEDS: Pantoprazole Inj IVP SCH (09:11)
--- NOTE | 2020-11-04 09:11 | Nephrology Progress Note ---
Assessment/Plan Plan #OVI vs OVI on CKD #CAD (S/p CABG 2004 at [facility]) # COPD # HTN- elevated # Hypothyroid - admitted to tele - resume on lasix 40mg daily - amlodipine 10mg daily - hydralazine 50mg TID - 2d echo - monitor renal function - avoid nephrotoxins time spent 65min Subjective ROS Limited/Unobtainable: No Constitutional: Reports: weakness HEENT: Denies: no symptoms, eye pain, blurred vision, tearing, double vision, ear pain, ear discharge, nose pain, nose congestion, throat pain, throat swelling, mouth pain, mouth swelling, other Neurologic/Psychiatric: Denies: no symptoms, anxiety, depressed, emotional problems, headache, numbness, paresthesia, pre-existing deficit, seizure, tingling, tremors, weakness, other Subjective Cr stable BP elevated hydralazine adjusted Objective Objective Last 24 Hour Vital Signs Date Time Temp Pulse Resp B/P (MAP) Pulse Ox O2 Delivery O2 Flow Rate FiO2 11/04/20 08:00 96.2 59 18 159/80 (106) 100 11/04/20 06:00 163/90 (114) 11/04/20 04:54 171/93 11/04/20 04:00 97.6 59 18 171/93 (119) 96 11/04/20 04:00 51 11/04/20 00:00 97.9 67 18 142/68 (92) 95 11/04/20 00:00 67 11/03/20 21:00 Nasal Cannula 2.0 11/03/20 20:00 57 11/03/20 20:00 97.6 64 18 134/69 (90) 95 11/03/20 16:00 97.7 101 18 140/78 (98) 96 11/03/20 16:00 54 11/03/20 12:00 97.5 93 18 164/81 (108) 92 11/03/20 12:00 53 Intake and Output 11/03/20 11/04/20 18:59 06:59 Intake Total 800 ml Balance 800 ml Intake Oral 800 ml # Voids 4 2 Laboratory Tests 11/03/20 11:20: Troponin I 0.145H 11/03/20 17:10: Troponin I 0.139H 11/03/20 23:30: Troponin I 0.137H 11/04/20 04:00: Activated Partial Thromboplast Time 46H Height (Feet): 5 Height (Inches): 6.00 Weight (Pounds): 193 Anika Tejada M.D. Nov 04, 2020 09:11
[2020-11-04] MEDS: HYDROcodone/Acetamin 5/325 tab ORAL PRN (09:25)
--- NOTE | 2020-11-04 10:35 | NUR ---
CARDIOLOGY Lexiscan was refused by Dr. Antoine yesterday and Dr. Rubin today due to pt's asthma, wheezing and elevated troponin levels.
[2020-11-04 10:40] LABS: CALCIUM 6.8 MG/DL (8.5-10.1); POTASSIUM 4.8 MMOL/L (3.5-5.1)
--- NOTE | 2020-11-04 12:57 | General Progress Note ---
Subjective Date patient seen: Nov 04, 2020 Time patient seen: 09:11 Constitutional: Denies: no symptoms, chills, diaphoresis, fever, malaise, weakness, other HEENT: Denies: no symptoms, eye pain, blurred vision, tearing, double vision, ear pain, ear discharge, nose pain, nose congestion, throat pain, throat swelling, mouth pain, mouth swelling, other Cardiovascular: Denies: no symptoms, chest pain, edema, irregular heart rate, lightheadedness, palpitations, syncope, other Respiratory: Denies: no symptoms, cough, orthopnea, shortness of breath, SOB with excertion, SOB at rest, sputum, stridor, wheezing, other Gastrointestinal/Abdominal: Denies: no symptoms, abdomen distended, abdominal pain, black stools, tarry stools, blood in stool, constipated, diarrhea, difficulty swallowing, nausea, poor appetite, poor fluid intake, rectal bleeding, vomiting, other Genitourinary: Denies: no symptoms, burning, discharge, frequency, flank pain, hematuria, incontinence, pain, urgency, other Neurologic/Psychiatric: Denies: no symptoms, anxiety, depressed, emotional problems, headache, numbness, paresthesia, pre-existing deficit, seizure, tingling, tremors, weakness, other Endocrine: Denies: no symptoms, excessive sweating, flushing, intolerance to cold, intolerance to heat, increased hunger, increased thirst, increased urine, unexplained weight gain, unexplained weight loss, other Hematologic/Lymphatic: Denies: no symptoms, anemia, easy bleeding, easy bruising, other Allergies: Coded Allergies: No Known Allergies (Verified Allergy, Unknown, 09/05/07) Subjective NAEO BP a little high overnight No complaints of n/v dizziness Per [place] radiology, Dr. Antoine and Dr. Rubin both have refused to allow patient to undergo NM stress 2' asthma and troponin level Troponin level is trending down No active chest pain Objective Last 24 Hour Vital Signs Date Time Temp Pulse Resp B/P (MAP) Pulse Ox O2 Delivery O2 Flow Rate FiO2 11/04/20 12:00 96.6 51 18 160/88 (112) 98 11/04/20 09:11 59 159/80 11/04/20 09:10 59 159/80 11/04/20 09:00 Nasal Cannula 2.0 11/04/20 08:00 57 11/04/20 08:00 96.2 59 18 159/80 (106) 100 11/04/20 06:00 163/90 (114) 11/04/20 04:54 171/93 11/04/20 04:00 97.6 59 18 171/93 (119) 96 11/04/20 04:00 51 11/04/20 00:00 97.9 67 18 142/68 (92) 95 11/04/20 00:00 67 11/03/20 21:00 Nasal Cannula 2.0 11/03/20 20:00 57 11/03/20 20:00 97.6 64 18 134/69 (90) 95 11/03/20 16:00 97.7 101 18 140/78 (98) 96 11/03/20 16:00 54 Intake and Output 11/03/20 11/04/20 19:00 07:00 Intake Total 800 ml Balance 800 ml Intake Oral 800 ml # Voids 4 2 Laboratory Tests 11/03/20 17:10: Troponin I 0.139H 11/03/20 23:30: Troponin I 0.137H 11/04/20 04:00: Activated Partial Thromboplast Time 46H 11/04/20 10:10: Sodium Level 141, Potassium Level 4.8, Chloride Level 108H, Carbon Dioxide Level 28, Anion Gap 5, Blood Urea Nitrogen 33H, Creatinine 2.0H, Estimat Glomerular Filtration Rate 30.4, Glucose Level 77, Calcium Level 6.8L 11/04/20 12:15: Activated Partial Thromboplast Time [Pending] Height (Feet): 5 Height (Inches): 6.00 Weight (Pounds): 193 General Appearance: no apparent distress EENT: PERRL/EOMI Neck: supple Cardiovascular: normal rate, regular rhythm Respiratory/Chest: other - Lungs clear in upper apices with mild wheeze Abdomen: normal bowel sounds, non tender, soft Extremities: normal range of motion Assessment/Plan Status: doing well, stable Assessment/Plan: #Hypertensive Urgency #Chest Pain - resolving #Tropinemia Initial presentation with elevated BP and symptoms of dizziness that have resolved. - Troponin trending down - Restart HTN medications - lasix, metop, amlodipine, lisinopril - Started Hydralazine - Continued on Heparin gtt for concern for NSTEMI - EKG prn for chest pain - Continue aspirin, statin - Cardiology consultation, appreciate recommendations. - 11/04 - Patient to have Lexiscan performed however Dr. Culp and Dr. Antoine have refused to perform test 2' to patient having asthma and elevated troponin. Patient has little to no wheezing at this time and troponin is trending down. - Unable to perform CTA Coronaries as radiology does not have this capability #HTN - Restart home metop, lasix, amlodipine, and lisinopril - Started hydralazine #COPD - duonebs q6 prn - previously on prednisone 20mg for 1mo, will taper to 10mg ending 11/09 and further taper - Spiriva #Hypothyroidism - Continue home levothyroxine #Muscle Spasm - restarted home soma Diet Regular FEN Full Code Time spent 37 minutes with 19 minutes spent with care coordination, review of labs, imaging and counseling. D/w nursing staff and consultants. Time of note does not reflect time of encounter Magdalena Morel M.D. Nov 04, 2020 12:57
[2020-11-04] MEDS: HydrALAZINE 50mg tab ORAL SCH ×2 (13:49→20:45)
--- NOTE | 2020-11-04 14:23 | NUR ---
PANTOGRAPH MACHINE SET UP OPERATORHARD METALS ENGRAVER HAND SI: NSTEMI,ACUTE KIDNEY INJURY T. 96.2 HR 51 RR 18 B/P 159/80 2L NC O2 SAT @ 98% BUN 33 CR 2.0 PTT>150 IS: HEPARIN GTT LASIX PREDNISONE PO TELE STATUS
--- NOTE | 2020-11-04 15:46 | NUR ---
INSURANCE CLINCALS/REVIEW FAXED to [facility]; [phone] F: [phone]
--- NOTE | 2020-11-04 15:47 | Diagnostic Imaging Report ---
RENAL ULTRASOUND - COMPLETE INDICATION: Renal failure. TECHNIQUE: Multiplanar ultrasound examination of the abdomen with greyscale and doppler imaging. COMPARISON: CT abdomen and pelvis dated 02/14/2017 FINDINGS: Right kidney: The kidneys are normal in size and echogenicity. There is no hydronephrosis.. Left kidney: The kidneys are normal in size and echogenicity. There is no hydronephrosis. Bladder: Grossly unremarkable. IMPRESSION: No acute sonographic findings.
--- NOTE | 2020-11-04 18:26 | Cardiology Progress Note ---
Assessment/Plan Assessment/Plan Assessment/Plan: #Hypertensive Urgency #Chest Pain #Tropinemia - Trend Trop q6 - Restart HTN medications - lasix, metop, amlodipine, lisinopril - Continued on Heparin gtt for concern for NSTEMI - EKG prn for chest pain - Continue aspirin, statin - Stress test to evaluate ischemia - will be done as outpatient at this juncture, albeit patient high risk due to hx of known CAD - Nitro prn #HTN - Restart home metop, lasix, amlodipine, and lisinopril #Hypothyroidism - Continue home levothyroxine Subjective Cardiovascular: Reports: no symptoms Respiratory: Reports: no symptoms Gastrointestinal/Abdominal: Reports: no symptoms Genitourinary: Reports: no symptoms Subjective No acute events, troponin down trending, Cardiology Nuc Med refused to do stress testing given hx of asthma Objective Last 24 Hour Vital Signs Date Time Temp Pulse Resp B/P (MAP) Pulse Ox O2 Delivery O2 Flow Rate FiO2 11/04/20 16:00 54 11/04/20 16:00 97.2 64 18 135/97 (110) 93 11/04/20 13:49 160/88 11/04/20 12:00 55 11/04/20 12:00 96.6 51 18 160/88 (112) 98 11/04/20 09:11 59 159/80 11/04/20 09:10 59 159/80 11/04/20 09:00 Nasal Cannula 2.0 11/04/20 08:00 57 11/04/20 08:00 96.2 59 18 159/80 (106) 100 11/04/20 06:00 163/90 (114) 11/04/20 04:54 171/93 11/04/20 04:00 97.6 59 18 171/93 (119) 96 11/04/20 04:00 51 11/04/20 00:00 97.9 67 18 142/68 (92) 95 11/04/20 00:00 67 11/03/20 21:00 Nasal Cannula 2.0 11/03/20 20:00 57 11/03/20 20:00 97.6 64 18 134/69 (90) 95 General Appearance: no apparent distress, alert EENT: PERRL/EOMI, normal ENT inspection Neck: non-tender, normal alignment, normal inspection, no JVD Rhythm: SB Cardiovascular: normal peripheral pulses, normal rate Respiratory/Chest: chest wall non-tender, lungs clear, no respiratory distress Abdomen: non tender, no organomegaly Extremities: normal range of motion, non-tender Neurologic: etl analyst developer II-XII grossly normal, no motor/sensory deficits Intake and Output 11/03/20 11/04/20 19:00 07:00 Intake Total 800 ml Balance 800 ml Intake Oral 800 ml # Voids 4 2 Laboratory Tests Test 11/03/20 23:30 11/04/20 04:00 11/04/20 10:10 11/04/20 12:15 Troponin I 0.137 ng/mL (0.000-0.056) Activated Partial Thromboplast Time 46 SEC (23-33) H > 150 SEC (23-33) *H Sodium Level 141 MMOL/L (136-145) Potassium Level 4.8 MMOL/L (3.5-5.1) Chloride Level 108 MMOL/L (98-107) H Carbon Dioxide Level 28 MMOL/L (21-32) Anion Gap 5 mmol/L (5-15) Blood Urea Nitrogen 33 mg/dL (7-18) H Creatinine 2.0 MG/DL (0.55-1.30) H Estimat Glomerular Filtration Rate 30.4 mL/min (>60) Glucose Level 77 MG/DL (74-106) Calcium Level 6.8 MG/DL (8.5-10.1) L Ed Escobedo MD Nov 04, 2020 18:26
--- NOTE | 2020-11-04 19:10 | NUR ---
NURSE HAND-OFF REPORT: Important Events on Shift:Lexiscan cancelled Patient Status: Stable Diet: Cardiac Pending Orders: Pending Results/Labs: Pending MD notification: Latest Vital Signs: Temperature 97.2 , Pulse 54 , B/P 135 /97 , Respiratory Rate 18 , O2 SAT 93 , Nasal Cannula, O2 Flow Rate 2.0 . Vital Sign Comment: stable EKG Rhythm: Sinus Bradycardia Rhythm change?: N MD Notified?: Ash Ayala MD Response: Message left await call Latest Thorpe Fall Score: 20 Fall Risk: Low Risk Safety Measures: Call light Within Reach, Bed Alarm Zone 1, Side Rails Side Rails x2, Bed position Low and Locked. Fall Precautions: Yellow Socks Patient Fall Education Report given to Skip/RN.
--- NOTE | 2020-11-04 19:15 | NUR ---
NURSE NOTES: Pt received from NANCIE Sanchez. Pt is resting comfortably in bed and denies any pain. Pt is A/Ox4 and ambulatory with walker. Pt is on NC2LPM and breathing unlabored. Pt is on cardiac monitoring SB w PVC; aware. Pt has LAC 20G and RHand 24G running Heparin drip both patent with skin dry and intact. Bed is locked and in lowest position with call light within reach. Will continue to monitor.
[2020-11-04] MEDS: Atorvastatin 20mg tab ORAL SCH (20:45)
[2020-11-05] VITALS: BP 161/86
--- NOTE | 2020-11-05 01:00 | NUR ---
NURSE NOTES: Pt is on cardiac monitoring with 6 runs of VTach at 0035. Called to notify Dr. Escobedo instructional technologist and left message. Patient denies any change in condition. Pt VS T97.7 P59 BP 161/86 O2 95%. Will continue to monitor.
--- NOTE | 2020-11-05 01:16 | NUR ---
NURSE NOTES: New dose rate for heparin drip received. Heparin held at 2145 and started and 2024 at 9unit/kg/hr. Pt denies pain or discomfort. IV patent with skin dry and intact. Will continue to monitor.
--- NOTE | 2020-11-05 01:30 | NUR ---
NURSE NOTES: Pt DCd IV RHand 24G. Reinserted on LFA 22G patent with skin dry and intact. Will continue to monitor.
[2020-11-05 04:00] VITALS: BP 142/87
[2020-11-05 05:04] LABS: CALCIUM 7.1 MG/DL (8.5-10.1); CREATININE 2.2 MG/DL (0.55-1.30); POTASSIUM 4.2 MMOL/L (3.5-5.1)
[2020-11-05] MEDS: HydrALAZINE 50mg tab ORAL SCH ×3 (05:42→22:42)
[2020-11-05] MEDS: HYDROcodone/Acetamin 5/325 tab ORAL PRN ×4 (05:43→20:57)
--- NOTE | 2020-11-05 07:37 | NUR ---
CASE MANAGEMENT:REVIEW 11/05/20 SI: NSTEMI. COPD 97.1 58 18 142/87 95% ON 2L/NC IS: HEPARIN GTT PREDNISONE PO QD DUONEB HHN Q6HRS HYDRALAZINE PO Q8HRS LASIX PO QD TOPROL PO QD NORVASC PO QD : TELEMETRY STATUS DCP: FROM HOME Addendum: 11/05/20 at 1427 by UMA LUCAS LVN LVN PLAN: WAITING FOR NCM WILL TO ARRANGE TRANSFER TO HIGHER LEVEL OF CARE FOR CARDIAC CATH
[2020-11-05 08:00] VITALS: BP 185/88
[2020-11-05] MEDS ORDERED: Heparin 5000 units/ml inj IV SCH (08:25)
[2020-11-05] MEDS ORDERED: Heparin 25,000u/D5W 500ml 500 ML IV SCH ×3 (08:26→20:00)
--- NOTE | 2020-11-05 09:06 | NUR ---
NURSE NOTES: Pharmacy brought up label for heparin drip.
--- NOTE | 2020-11-05 09:11 | NUR ---
NURSE NOTES: Heparin drip readjusted/started at 22.59mL/h; 13units/kg.
[2020-11-05] MEDS: Metoprolol Succinate XL 50mg tab ORAL SCH (09:23)
[2020-11-05] MEDS: Furosemide 40mg tab ORAL SCH (09:23)
--- NOTE | 2020-11-05 10:04 | Nephrology Progress Note ---
Assessment/Plan Plan #OVI vs OVI on CKD #CAD (S/p CABG 2004 at [facility]) # COPD # HTN- elevated # Hypothyroid - renal US with no acute findings - resume on lasix 40mg daily - amlodipine 10mg daily - hold ACEi - incease hydralazine 100mg TID - 2d echo - monitor renal function - avoid nephrotoxins time spent 65min Subjective ROS Limited/Unobtainable: No Constitutional: Reports: weakness Subjective Cr stable BP elevated hydralazine adjusted renal US with no acute findings Objective Objective Last 24 Hour Vital Signs Date Time Temp Pulse Resp B/P (MAP) Pulse Ox O2 Delivery O2 Flow Rate FiO2 11/05/20 09:33 59 18 92 Room Air 21 11/05/20 09:23 56 18 92 Room Air 21 11/05/20 09:23 59 185/88 11/05/20 09:23 59 185/88 11/05/20 08:00 97.1 59 20 185/88 (120) 92 11/05/20 05:42 165/76 11/05/20 04:00 97.1 65 18 142/87 (105) 95 11/05/20 04:00 58 11/05/20 00:49 Nasal Cannula 2.0 28 11/05/20 00:46 Nasal Cannula 2.0 28 11/05/20 00:00 53 11/05/20 00:00 97.7 59 18 161/86 (111) 95 11/04/20 21:00 Nasal Cannula 2.0 11/04/20 20:45 135/97 11/04/20 20:00 96.3 56 18 141/73 (95) 92 11/04/20 16:00 54 11/04/20 16:00 97.2 64 18 135/97 (110) 93 11/04/20 13:49 160/88 11/04/20 12:00 55 11/04/20 12:00 96.6 51 18 160/88 (112) 98 Intake and Output 11/04/20 11/05/20 19:00 07:00 Intake Total 480 ml 480 ml Balance 480 ml 480 ml Intake Oral 480 ml 480 ml # Voids 5 2 Laboratory Tests 11/04/20 10:10: Sodium Level 141, Potassium Level 4.8, Chloride Level 108H, Carbon Dioxide Level 28, Anion Gap 5, Blood Urea Nitrogen 33H, Creatinine 2.0H, Estimat Glomerular Filtration Rate 30.4, Glucose Level 77, Calcium Level 6.8L 11/04/20 12:15: Activated Partial Thromboplast Time > 150*H 11/04/20 20:37: Activated Partial Thromboplast Time 127H 11/05/20 04:00: Troponin I 0.118H 11/05/20 04:06: Activated Partial Thromboplast Time 46H, Sodium Level 141, Potassium Level 4.2, Chloride Level 107, Carbon Dioxide Level 30, Anion Gap 4L, Blood Urea Nitrogen 33H, Creatinine 2.2H, Estimat Glomerular Filtration Rate 27.3, Glucose Level 109H, Calcium Level 7.1L, Phosphorus Level 4.0, Magnesium Level 1.7L 11/05/20 07:45: Activated Partial Thromboplast Time 46H Height (Feet): 5 Height (Inches): 6.00 Weight (Pounds): 193 General Appearance: no apparent distress, alert EENT: PERRL/EOMI Neck: non-tender, normal alignment Cardiovascular: normal peripheral pulses, normal rate, regular rhythm Respiratory/Chest: chest wall non-tender, lungs clear, normal breath sounds Abdomen: normal bowel sounds, non tender, soft Extremities: normal range of motion, non-tender Neurologic: alert, oriented x 3 Anika Tejada M.D. Nov 05, 2020 10:04
--- NOTE | 2020-11-05 11:25 | NUR ---
TRANSFER UPDATE SPOKE WITH [facility]. HE WILL WORK ON TRANSFERRING PATIENT TO [facility] FAXED CLINICALS TO [facility] Addendum: 11/05/20 at 1426 by UMA LUCAS LVN LVN WAITING FOR 1) COVID RESULTS 2) TO HEAR BACK FROM [facility] WILL T;[phone] Addendum: 11/05/20 at 1516 by UMA LUCAS LVN LVN F/U CALL PLACED TO WILL. HE SAID HE NEVER RECEIVED THE FAX EVEN THOUGH WE RECEIVED A FAX CONFIRMATION REFAXED CLINICALS AND COVID RESULTS
--- NOTE | 2020-11-05 11:54 | General Progress Note ---
Subjective Date patient seen: Nov 05, 2020 Time patient seen: 08:43 Constitutional: Denies: no symptoms, chills, diaphoresis, fever, malaise, weakness, other HEENT: Denies: no symptoms, eye pain, blurred vision, tearing, double vision, ear pain, ear discharge, nose pain, nose congestion, throat pain, throat swelling, mouth pain, mouth swelling, other Cardiovascular: Denies: no symptoms, chest pain, edema, irregular heart rate, lightheadedness, palpitations, syncope, other Respiratory: Denies: no symptoms, cough, orthopnea, shortness of breath, SOB with excertion, SOB at rest, sputum, stridor, wheezing, other Gastrointestinal/Abdominal: Denies: no symptoms, abdomen distended, abdominal pain, black stools, tarry stools, blood in stool, constipated, diarrhea, difficulty swallowing, nausea, poor appetite, poor fluid intake, rectal bleeding, vomiting, other Genitourinary: Denies: no symptoms, burning, discharge, frequency, flank pain, hematuria, incontinence, pain, urgency, other Neurologic/Psychiatric: Denies: no symptoms, anxiety, depressed, emotional problems, headache, numbness, paresthesia, pre-existing deficit, seizure, tingling, tremors, weakness, other Endocrine: Denies: no symptoms, excessive sweating, flushing, intolerance to cold, intolerance to heat, increased hunger, increased thirst, increased urine, unexplained weight gain, unexplained weight loss, other Hematologic/Lymphatic: Denies: no symptoms, anemia, easy bleeding, easy bruising, other Allergies: Coded Allergies: No Known Allergies (Verified Allergy, Unknown, 09/05/07) Subjective NSVT overnight Patient's IV infiltrated, replaced Patient needs further evaluation with cardiac cath, CM to assist with possible transfer Denies any chest pain this morning Objective Last 24 Hour Vital Signs Date Time Temp Pulse Resp B/P (MAP) Pulse Ox O2 Delivery O2 Flow Rate FiO2 11/05/20 11:14 97.1 11/05/20 11:14 97.1 11/05/20 10:44 185/88 11/05/20 09:33 59 18 92 Room Air 21 11/05/20 09:23 56 18 92 Room Air 21 11/05/20 09:23 59 185/88 11/05/20 09:23 59 185/88 11/05/20 08:00 97.1 59 20 185/88 (120) 92 11/05/20 05:42 165/76 11/05/20 04:00 97.1 65 18 142/87 (105) 95 11/05/20 04:00 58 11/05/20 00:49 Nasal Cannula 2.0 28 11/05/20 00:46 Nasal Cannula 2.0 28 11/05/20 00:00 53 11/05/20 00:00 97.7 59 18 161/86 (111) 95 11/04/20 21:00 Nasal Cannula 2.0 11/04/20 20:45 135/97 11/04/20 20:00 96.3 56 18 141/73 (95) 92 11/04/20 16:00 54 11/04/20 16:00 97.2 64 18 135/97 (110) 93 11/04/20 13:49 160/88 11/04/20 12:00 55 11/04/20 12:00 96.6 51 18 160/88 (112) 98 Intake and Output 11/04/20 11/05/20 19:00 07:00 Intake Total 480 ml 480 ml Balance 480 ml 480 ml Intake Oral 480 ml 480 ml # Voids 5 2 Laboratory Tests 11/04/20 12:15: Activated Partial Thromboplast Time > 150*H 11/04/20 20:37: Activated Partial Thromboplast Time 127H 11/05/20 04:00: Troponin I 0.118H 11/05/20 04:06: Activated Partial Thromboplast Time 46H, Sodium Level 141, Potassium Level 4.2, Chloride Level 107, Carbon Dioxide Level 30, Anion Gap 4L, Blood Urea Nitrogen 33H, Creatinine 2.2H, Estimat Glomerular Filtration Rate 27.3, Glucose Level 109H, Calcium Level 7.1L, Phosphorus Level 4.0, Magnesium Level 1.7L 11/05/20 07:45: Activated Partial Thromboplast Time 46H Height (Feet): 5 Height (Inches): 6.00 Weight (Pounds): 193 General Appearance: no apparent distress, alert EENT: PERRL/EOMI Neck: supple Cardiovascular: normal rate, regular rhythm Respiratory/Chest: lungs clear, other - mild expiratory wheeze, improved Abdomen: non tender, soft Extremities: normal range of motion 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 - Continue to monitor on Tele - Troponin trending down - Restart HTN medications - lasix, metop, amlodipine, lisinopril - Hydralazine increased - Continued on Heparin gtt for concern for NSTEMI - EKG prn for chest pain - Continue aspirin, statin - Keep K >4 and Mag >2, lytes repleted - Cardiology consultation, appreciate recommendations. - 11/04 - Patient to have Lexiscan performed however Dr. Culp and Dr. Antoine have refused to perform test 2' to patient having asthma and elevated troponin. Patient has little to no wheezing at this time and troponin is trending down. - Unable to perform CTA Coronaries as radiology does not have this capability - 11/05 - Initiating transfer to [facility] - CM to assist with transfer for cardiac catheterization. #CKD Stage 3 - Creatinine 2.2 - UOP good #HTN - Restart home metop, lasix, amlodipine - Increased hydralazine #COPD - duonebs q6 prn - previously on prednisone 20mg for 1mo, will taper to 10mg ending 11/09 and further taper - Spiriva #Hypothyroidism - Continue home levothyroxine #Muscle Spasm - restarted home soma Diet Regular FEN Full Code Time spent 38 minutes with 17 minutes spent with care coordination, review of labs, imaging and counseling. D/w nursing staff and consultants. CM to assist with transfer process. Time of note does not reflect time of encounter Magdalena Morel M.D. Nov 05, 2020 11:53
[2020-11-05 12:00] VITALS: BP 135/72
--- NOTE | 2020-11-05 15:40 | NUR ---
NURSE NOTES: Spoke to Clara, case management associate, and stated that she faxed over covid results and awaiting response from the insurance company.
[2020-11-05 16:00] VITALS: BP 147/78
--- NOTE | 2020-11-05 17:45 | NUR ---
NURSE NOTES: Heparin drip was stopped.
--- NOTE | 2020-11-05 18:02 | NUR ---
NURSE NOTES: Patient PTT was drawn and given to phleb tech.
--- NOTE | 2020-11-05 19:40 | NUR ---
NURSE HAND-OFF REPORT: Important Events on Shift: Heparin drip was stopped and awaiting PTT result before pharmacist provides new label and dosing. NANCIE Holman aware; awaiting insurance to contact us back (CM or nurse utilities and maintenance supervisor) to give us the okay that she has been accepted. Patient Status: stable condition, full code Diet: cardiac Pending Orders: [] Pending Results/Labs:[] Pending MD notification:[] Latest Vital Signs: Temperature 97.5 , Pulse 96 , B/P 147 /78 , Respiratory Rate 20 , O2 SAT 94 , Nasal Cannula, O2 Flow Rate 2.0 . Vital Sign Comment: [] EKG Rhythm: Sinus Rhythm Rhythm change?: N MD Notified?: Ash Ayala MD Response: Message left await call Latest Thorpe Fall Score: 20 Fall Risk: Low Risk Safety Measures: Call light Within Reach, Bed Alarm Zone 1, Side Rails Side Rails x2, Bed position Low and Locked. Fall Precautions: Yellow Socks Patient Fall Education Report given to Francisca Holman RN.
--- NOTE | 2020-11-05 19:41 | NUR ---
NURSE NOTES: Received report from NANCIE Jessica; pt AOX 4; in no acute distress in room air; able to verbalize needs; ambulatory with supervision; encouraged to ask for assistance when getting OOB to go to the bathroom; pt verbalized understanding; with order for heparin drip but stopped at this time awaiting PTT results and pharmacy dosing; With peripheral IV on R hand 22 gauge and L ac 20 gauge; intact and patent; call light within reach; bed locked and in low position; side rails x 2; pt comfortable in bed watching TV; will continue to monitor.
[2020-11-05 20:00] VITALS: BP 118/82
[2020-11-05] MEDS: Atorvastatin 20mg tab ORAL SCH (20:44)
--- NOTE | 2020-11-05 22:07 | NUR ---
NURSE NOTES: Called and left a message with Dr. Escobedo regarding holding parameters for patient's Hydralazine 100mg Q8HR for HTN. Patient's current BP is 139/59; HR: 58. Awaiting call back.
[2020-11-06] VITALS (7 sets, daily range): BP systolic 142–172; BP diastolic 76–109
[2020-11-06] MEDS: HydrALAZINE 50mg tab ORAL PRN ×2 (00:53→16:14)
[2020-11-06] MEDS: HYDROcodone/Acetamin 5/325 tab ORAL PRN ×4 (01:54→20:40)
[2020-11-06 03:19] LABS: CALCIUM 7.6 MG/DL (8.5-10.1); CREATININE 2.2 MG/DL (0.55-1.30); PHOSPHORUS 3.5 MG/DL (2.5-4.9); POTASSIUM 4.5 MMOL/L (3.5-5.1)
--- NOTE | 2020-11-06 03:25 | NUR ---
NURSE NOTES: Spoke with Darlene from [facility] Transfer center regarding patient's request for bed placement. Per Darlene, there's no available bed at this time but will coordinate with the case specialist on the case. Addendum: 11/06/20 at 0331 by Francisca Holman RN NURSE NOTES: Face sheet faxed to [phone]
[2020-11-06] MEDS ORDERED: Heparin 5000 units/ml inj IV SCH (04:30)
[2020-11-06] MEDS: Heparin 25,000u/D5W 500ml 500 ML IV SCH ×2 (04:50→11:43)
[2020-11-06] MEDS: HydrALAZINE 50mg tab ORAL SCH ×3 (06:40→20:39)
--- NOTE | 2020-11-06 07:00 | NUR ---
NURSE HAND-OFF REPORT: Important Events on Shift: On heparin drip 13 units/kg/hr; aptt @ 1055 timed; Dr. Escobedo contacted for parameters for hydralazine 100 mg; no call back yet; endorsed to NANCIE Ryan, F/u 2D echo per Dr. Tejada notes; f/u with test case developer on Sunday regarding placement for cardiac cath procedure Patient Status: AOX4, asleep most of the night; comfortable in bed Diet: cardiac Pending Orders: N Pending Results/Labs: morning labs, aPTT Pending MD notification: Y-Dr. Escobedo Latest Vital Signs: Temperature 97.8 , Pulse 59 , B/P 179 /84 , Respiratory Rate 21 , O2 SAT 95 , Room Air, O2 Flow Rate 2.0 . Vital Sign Comment: stable EKG Rhythm: Sinus Rhythm Rhythm change?: N Notified?: N Response: N/A Latest Thorpe Fall Score: 20 Fall Risk: Low Risk Safety Measures: Call light Within Reach, Bed Alarm Zone 1, Side Rails Side Rails x2, Bed position Low and Locked. Fall Precautions: Yellow Socks Patient Fall Education Report given to NANCIE Ryan.
--- NOTE | 2020-11-06 07:35 | NUR ---
NURSE NOTES: Pt. received from Ana RN and NANCIE Espinosa. Pt. AAOx4, breathing even and unlabored on room air, no indications of respiratory distress, no complaints of chest pain at this time. IV left forearm 20g with heparin drip running, right hand 22g saline locked. Pt. instructed on use of call light for assistance. Bed low and locked, side rails x3 up, bed alarm active and call light in reach.
[2020-11-06] MEDS: Furosemide 40mg tab ORAL SCH (08:34)
[2020-11-06] MEDS: Metoprolol Succinate XL 50mg tab ORAL SCH (09:52)
--- NOTE | 2020-11-06 11:31 | NUR ---
TRANSFER UPDATE SPOKE WITH SUE AT [facility]. INSTRUCTED TO FAX CLINCALS DIRECTLY TO [facility] T: [phone] F: [phone] FAXED
--- NOTE | 2020-11-06 12:57 | General Progress Note ---
Subjective Date patient seen: Nov 06, 2020 Time patient seen: 09:40 Constitutional: Denies: no symptoms, chills, diaphoresis, fever, malaise, weakness, other HEENT: Denies: no symptoms, eye pain, blurred vision, tearing, double vision, ear pain, ear discharge, nose pain, nose congestion, throat pain, throat swelling, mouth pain, mouth swelling, other Cardiovascular: Denies: no symptoms, chest pain, edema, irregular heart rate, lightheadedness, palpitations, syncope, other Respiratory: Denies: no symptoms, cough, orthopnea, shortness of breath, SOB with excertion, SOB at rest, sputum, stridor, wheezing, other Gastrointestinal/Abdominal: Denies: no symptoms, abdomen distended, abdominal pain, black stools, tarry stools, blood in stool, constipated, diarrhea, difficulty swallowing, nausea, poor appetite, poor fluid intake, rectal bleeding, vomiting, other Genitourinary: Denies: no symptoms, burning, discharge, frequency, flank pain, hematuria, incontinence, pain, urgency, other Neurologic/Psychiatric: Denies: no symptoms, anxiety, depressed, emotional problems, headache, numbness, paresthesia, pre-existing deficit, seizure, tingling, tremors, weakness, other Endocrine: Denies: no symptoms, excessive sweating, flushing, intolerance to cold, intolerance to heat, increased hunger, increased thirst, increased urine, unexplained weight gain, unexplained weight loss, other Hematologic/Lymphatic: Denies: no symptoms, anemia, easy bleeding, easy bruising, other Allergies: Coded Allergies: No Known Allergies (Verified Allergy, Unknown, 09/05/07) Subjective Remains on tele CM assisting with transfer to [facility], awaiting insurance auth and bed availability Patient is otherwise subjectively doing well Denies any chest pain at this time on 2L Oxygen, removed and oxygen sat remains >90% Objective Last 24 Hour Vital Signs Date Time Temp Pulse Resp B/P (MAP) Pulse Ox O2 Delivery O2 Flow Rate FiO2 11/06/20 09:52 60 156/86 11/06/20 09:45 156/86 (109) 11/06/20 09:03 97.8 11/06/20 09:03 97.8 11/06/20 09:00 Room Air 11/06/20 08:34 61 158/113 11/06/20 08:00 60 11/06/20 08:00 97.7 60 18 165/109 (127) 94 11/06/20 07:27 60 18 95 Room Air 21 11/06/20 07:27 60 18 95 Room Air 21 11/06/20 06:40 179/84 11/06/20 04:00 97.8 59 21 142/76 (98) 95 11/06/20 04:00 65 11/06/20 02:24 97.7 11/06/20 00:53 166/101 11/06/20 00:02 74 20 97 Nasal Cannula 2.0 28 11/06/20 00:00 97.7 66 20 166/101 (122) 96 11/06/20 00:00 81 20 97 Nasal Cannula 2.0 28 11/06/20 00:00 64 11/05/20 22:42 177/88 11/05/20 21:00 Room Air 11/05/20 20:00 57 11/05/20 20:00 97.5 55 20 118/82 (94) 94 11/05/20 19:31 96 20 94 Room Air 21 11/05/20 19:30 98 20 94 Room Air 21 11/05/20 16:34 97.5 11/05/20 16:00 74 11/05/20 16:00 97.5 53 20 147/78 (101) 93 11/05/20 14:52 84 18 93 Room Air 21 11/05/20 14:49 92 18 91 Room Air 21 Intake and Output 11/05/20 11/06/20 19:00 07:00 Intake Total 520 ml 480 ml Balance 520 ml 480 ml Intake Oral 520 ml 480 ml # Voids 3 3 # Bowel Movements 1 Laboratory Tests 11/05/20 15:45: Activated Partial Thromboplast Time > 150*H 11/05/20 16:10: Activated Partial Thromboplast Time 103H 11/06/20 02:50: Activated Partial Thromboplast Time 57H, Sodium Level 138, Potassium Level 4.5, Chloride Level 102, Carbon Dioxide Level 30, Anion Gap 6, Blood Urea Nitrogen 39H, Creatinine 2.2H, Estimat Glomerular Filtration Rate 27.3, Glucose Level 91, Calcium Level 7.6L, Phosphorus Level 3.5, Magnesium Level 2.2 11/06/20 10:40: Activated Partial Thromboplast Time 86H Height (Feet): 5 Height (Inches): 6.00 Weight (Pounds): 193 General Appearance: no apparent distress EENT: PERRL/EOMI Neck: supple Cardiovascular: normal rate, regular rhythm Respiratory/Chest: lungs clear, normal breath sounds Abdomen: non tender, soft Edema: no edema noted Arm (L), no edema noted Arm (R), no edema noted Leg (L), no edema noted Leg (R), no edema noted Pedal (L), no edema noted Pedal (R), no edema noted 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 - Continue to monitor on Tele - Troponin trending down - Restart HTN medications - lasix, metop, amlodipine, lisinopril - Hydralazine increased - Continued on Heparin gtt for concern for NSTEMI - EKG prn for chest pain - Continue aspirin, statin - Keep K >4 and Mag >2, lytes repleted - Cardiology consultation, appreciate recommendations. - 11/04 - Patient to have Lexiscan performed however Dr. Culp and Dr. Antoine have refused to perform test 2' to patient having asthma and elevated troponin. Patient has little to no wheezing at this time and troponin is trending down. - Unable to perform CTA Coronaries as radiology does not have this capability - 11/05 - Initiating transfer to [facility] - to assist with transfer for cardiac catheterization. Awaiting bed placement and insurance authorization. Covid negative. #CKD Stage 3 - Creatinine 2.2 - UOP good #HTN - Restart home metop, lasix, amlodipine - Increased hydralazine #COPD - duonebs q6 prn - previously on prednisone 20mg for 1mo, will taper to 10mg ending 11/09 and further taper - Spiriva #Hypothyroidism - Continue home levothyroxine #Muscle Spasm - restarted home soma Diet Regular FEN Full Code Time spent 35 minutes with 16 minutes spent with care coordination, review of labs, imaging and counseling. D/w nursing staff and consultants. to assist with transfer process. Time of note does not reflect time of encounter Magdalena Morel M.D. Nov 06, 2020 12:57
--- NOTE | 2020-11-06 13:23 | NUR ---
CASE MANAGEMENT:REVIEW 11/06/20 SI: NSTEMI. COPD 97.8 60 18 165/109 94% ON RA TROPONIN(+) 0.118 IS: HEPARIN GTT PREDNISONE PO QD DUONEB HHN Q6HRS HYDRALAZINE PO Q8HRS LASIX PO QD TOPROL PO QD NORVASC PO QD : TELEMETRY STATUS DCP: FROM HOME PLAN: STILL WAITING TO TRANSFER TO [facility] FOR CARDIAC CATH SPOKE WITH JEN ROGERS THIS AM FAXED CLINICALS TO [facility]
--- NOTE | 2020-11-06 13:27 | Nephrology Progress Note ---
Assessment/Plan Plan #OVI vs OVI on CKD #CAD (S/p CABG 2004 at [facility]) # COPD # HTN- elevated # Hypothyroid - renal US with no acute findings - resume on lasix 40mg daily - amlodipine 10mg daily - add imdur 30mg daily - plan to transfer to [facility] for [facility] - hold ACEi - incease hydralazine 100mg TID - monitor renal function - avoid nephrotoxins time spent 65min Subjective ROS Limited/Unobtainable: No Constitutional: Reports: weakness HEENT: Denies: no symptoms, eye pain, blurred vision, tearing, double vision, ear pain, ear discharge, nose pain, nose congestion, throat pain, throat swelling, mouth pain, mouth swelling, other Genitourinary: Denies: no symptoms, burning, discharge, frequency, flank pain, hematuria, incontinence, pain, urgency, other Neurologic/Psychiatric: Denies: no symptoms, anxiety, depressed, emotional problems, headache, numbness, paresthesia, pre-existing deficit, seizure, tingling, tremors, weakness, other Subjective Cr stable BP borderline elevated hydralazine adjusted Will add imdur 30mg daily plan to transfer to [facility] for [facility] renal US with no acute findings Objective Objective Last 24 Hour Vital Signs Date Time Temp Pulse Resp B/P (MAP) Pulse Ox O2 Delivery O2 Flow Rate FiO2 11/06/20 09:52 60 156/86 11/06/20 09:45 156/86 (109) 11/06/20 09:03 97.8 11/06/20 09:03 97.8 11/06/20 09:00 Room Air 11/06/20 08:34 61 158/113 11/06/20 08:00 60 11/06/20 08:00 97.7 60 18 165/109 (127) 94 11/06/20 07:27 60 18 95 Room Air 21 11/06/20 07:27 60 18 95 Room Air 21 11/06/20 06:40 179/84 11/06/20 04:00 97.8 59 21 142/76 (98) 95 11/06/20 04:00 65 11/06/20 02:24 97.7 11/06/20 00:53 166/101 11/06/20 00:02 74 20 97 Nasal Cannula 2.0 28 11/06/20 00:00 97.7 66 20 166/101 (122) 96 11/06/20 00:00 81 20 97 Nasal Cannula 2.0 28 11/06/20 00:00 64 11/05/20 22:42 177/88 11/05/20 21:00 Room Air 11/05/20 20:00 57 11/05/20 20:00 97.5 55 20 118/82 (94) 94 11/05/20 19:31 96 20 94 Room Air 21 11/05/20 19:30 98 20 94 Room Air 21 11/05/20 16:34 97.5 11/05/20 16:00 74 11/05/20 16:00 97.5 53 20 147/78 (101) 93 11/05/20 14:52 84 18 93 Room Air 21 11/05/20 14:49 92 18 91 Room Air 21 Intake and Output 11/05/20 11/06/20 19:00 07:00 Intake Total 520 ml 480 ml Balance 520 ml 480 ml Intake Oral 520 ml 480 ml # Voids 3 3 # Bowel Movements 1 Laboratory Tests 11/05/20 15:45: Activated Partial Thromboplast Time > 150*H 11/05/20 16:10: Activated Partial Thromboplast Time 103H 11/06/20 02:50: Activated Partial Thromboplast Time 57H, Sodium Level 138, Potassium Level 4.5, Chloride Level 102, Carbon Dioxide Level 30, Anion Gap 6, Blood Urea Nitrogen 39H, Creatinine 2.2H, Estimat Glomerular Filtration Rate 27.3, Glucose Level 91, Calcium Level 7.6L, Phosphorus Level 3.5, Magnesium Level 2.2 11/06/20 10:40: Activated Partial Thromboplast Time 86H Height (Feet): 5 Height (Inches): 6.00 Weight (Pounds): 193 Anika Tejada M.D. Nov 06, 2020 13:27
--- NOTE | 2020-11-06 15:55 | NUR ---
TRANSFER UPDATE PATIENT HAS BEEN ACCEPTED AT [facility] WILL CALL [facility] N[facility] STATION WHEN BED IS AVAILABLE [facility] HAS BEEN PLACED ON WILL CALL NURSING NEEDS TO ACTIVATE THE AMBULANCE WILL CALL ONCE [facility] OR THE HEALTH PLAN TICKET SALES AGENT CALLS TO GIVE THE BED/ROOM NUMBER THERE IS A ORDER FOR TRANSFER IN PLACE PATIENT IS TRANSFERRING TO A HIGHER LEVEL OF CARE FOR A CARDIAC CATH
--- NOTE | 2020-11-06 18:46 | NUR ---
NURSE NOTES: Message left for Dr. Escobedo regarding episode of 17 beats vtach. Awaiting return call and possible orders.
--- NOTE | 2020-11-06 19:35 | NUR ---
NURSE HAND-OFF REPORT: Important Events on Shift:[]episode of vatch, Dr. Escobedo and Dr. Ayala called. Anticipating transfer to [facility], endorsed waiting to give report to [facility] and then to call [facility] Patient Status: []awake and alert Diet: []cardiac Pending Orders: []na Pending Results/Labs:[]na Pending MD notification:[]na Latest Vital Signs: Temperature 97.9 , Pulse 58 , B/P 172 /88 , Respiratory Rate 18 , O2 SAT 94 , Room Air, O2 Flow Rate 2.0 . Vital Sign Comment: []HTN EKG Rhythm: Sinus Bradycardia Rhythm change?: N MD Notified?: N -Dr. Jamie HOWARD Response: Message left await call Latest Thorpe Fall Score: 20 Fall Risk: Low Risk Safety Measures: Call light Within Reach, Bed Alarm Zone 1, Side Rails Side Rails x2, Bed position Low and Locked. Fall Precautions: Yellow Socks Patient Fall Education Report given to []NANCIE Bright
--- NOTE | 2020-11-06 19:40 | NUR ---
NURSE NOTES: Pt received from NANCIE Ryan. Pt is resting comfortably in bed and denies any pain. Pt is A/Ox4 and ambulatory with a walker; orient to room and uses call light for ambulation assistance. Pt is on cardiac monitoring SB and asymptomatic. Pt has NC 2LPM and breaths unlabored; pt has SOB with exertion at baseline due to COPD. Pt has LFA 20G and RHand 22G both patent with skin dry and intact. Bed is locked and in lowest position with call light within reach. Will continue to monitor.
[2020-11-06] MEDS: Atorvastatin 20mg tab ORAL SCH (20:39)
[2020-11-07] VITALS: BP 152/74
[2020-11-07 04:00] VITALS: BP 166/82
[2020-11-07] MEDS: HYDROcodone/Acetamin 5/325 tab ORAL PRN ×3 (05:49→17:44)
[2020-11-07] MEDS: HydrALAZINE 50mg tab ORAL SCH ×3 (05:49→22:00)
--- NOTE | 2020-11-07 06:54 | NUR ---
NURSE HAND-OFF REPORT: Important Events on Shift:Pt continued scheduled medications Patient Status: Stable Diet: Cardiac Pending Orders: Discharge and transfer Pending Results/Labs: Pending MD notification: Latest Vital Signs: Temperature 97.1 , Pulse 62 , B/P 168 /76 , Respiratory Rate 20 , O2 SAT 96 , Room Air, O2 Flow Rate 2.0 . Vital Sign Comment: VSS EKG Rhythm: Sinus Rhythm Rhythm change?: N MD Notified?: N -Dr. Jamie HOWARD Response: Message left await call Latest Thorpe Fall Score: 20 Fall Risk: Low Risk Safety Measures: Call light Within Reach, Bed Alarm Zone 1, Side Rails Side Rails x2, Bed position Low and Locked. Fall Precautions: Yellow Socks Patient Fall Education Report given to NANCIE Sanchez.
--- NOTE | 2020-11-07 07:29 | NUR ---
NURSE NOTES: Received report from Skip/RN. Pt in bed, alert and oriented X4, able to make needs know. On 2L nasal cannula, no distress or SOB noted. Pending transfer to [facility], waiting for a bed to become available. IV on right hand 22G and Left FA 20G, both SL patent and clean. Bed in lowest position and locked. Call light within reach, encouraged to use it when needed. Side rails up X2. Will continue plan of care.
[2020-11-07 08:00] VITALS: BP 125/65
[2020-11-07] MEDS: Aspirin EC 81mg tab ORAL SCH (08:42)
[2020-11-07] MEDS: Imdur 30mg tab ORAL SCH (08:42)
[2020-11-07] MEDS: Furosemide 40mg tab ORAL SCH (08:42)
[2020-11-07] MEDS: Metoprolol Succinate XL 50mg tab ORAL SCH (08:42)
--- NOTE | 2020-11-07 09:33 | General Progress Note ---
Subjective Date patient seen: Nov 07, 2020 Constitutional: Denies: no symptoms, chills, diaphoresis, fever, malaise, weakness, other HEENT: Denies: no symptoms, eye pain, blurred vision, tearing, double vision, ear pain, ear discharge, nose pain, nose congestion, throat pain, throat swelling, mouth pain, mouth swelling, other Cardiovascular: Denies: no symptoms, chest pain, edema, irregular heart rate, lightheadedness, palpitations, syncope, other Respiratory: Denies: no symptoms, cough, orthopnea, shortness of breath, SOB with excertion, SOB at rest, sputum, stridor, wheezing, other Gastrointestinal/Abdominal: Denies: no symptoms, abdomen distended, abdominal pain, black stools, tarry stools, blood in stool, constipated, diarrhea, difficulty swallowing, nausea, poor appetite, poor fluid intake, rectal bleeding, vomiting, other Genitourinary: Denies: no symptoms, burning, discharge, frequency, flank pain, hematuria, incontinence, pain, urgency, other Neurologic/Psychiatric: Denies: no symptoms, anxiety, depressed, emotional problems, headache, numbness, paresthesia, pre-existing deficit, seizure, tingling, tremors, weakness, other Endocrine: Denies: no symptoms, excessive sweating, flushing, intolerance to cold, intolerance to heat, increased hunger, increased thirst, increased urine, unexplained weight gain, unexplained weight loss, other Hematologic/Lymphatic: Denies: no symptoms, anemia, easy bleeding, easy bruising, other Allergies: Coded Allergies: No Known Allergies (Verified Allergy, Unknown, 09/05/07) Subjective Remains on telemetry Episode of Vtach for 17seconds on monitor Subjectively feeling well Discussed transfer if it is possible, patient is in agreement Objective Last 24 Hour Vital Signs Date Time Temp Pulse Resp B/P (MAP) Pulse Ox O2 Delivery O2 Flow Rate FiO2 11/07/20 08:42 125/65 11/07/20 08:42 76 125/65 11/07/20 08:42 76 125/65 11/07/20 08:00 97.4 76 20 125/65 (85) 91 11/07/20 05:49 168/76 11/07/20 04:00 97.1 58 20 166/82 (110) 96 12/13/20 04:00 62 11/07/20 01:07 59 18 95 Room Air 21 11/07/20 01:05 59 18 95 Room Air 21 11/07/20 00:00 66 11/07/20 00:00 98.2 62 18 152/74 (100) 96 11/06/20 21:00 Room Air 11/06/20 20:39 164/84 11/06/20 20:00 59 11/06/20 20:00 97.9 56 18 164/84 (110) 96 11/06/20 19:35 58 18 94 Room Air 21 11/06/20 19:32 58 18 94 Room Air 21 11/06/20 16:14 172/88 11/06/20 16:00 97.5 56 16 172/88 (116) 94 11/06/20 16:00 56 11/06/20 13:46 162/83 11/06/20 13:29 64 17 92 Room Air 21 11/06/20 13:28 64 17 92 Room Air 21 11/06/20 12:00 97.9 57 18 162/83 (109) 92 11/06/20 12:00 57 11/06/20 09:52 60 156/86 11/06/20 09:45 156/86 (109) Intake and Output 11/06/20 11/07/20 18:59 06:59 Intake Total 635.564 ml 480 ml Output Total 500 ml Balance 135.564 ml 480 ml Intake Oral 500 ml 480 ml IV Total 135.564 ml Output Urine Total 500 ml # Voids 3 2 Laboratory Tests 11/06/20 10:40: Activated Partial Thromboplast Time 86H Height (Feet): 5 Height (Inches): 6.00 Weight (Pounds): 193 General Appearance: no apparent distress, alert EENT: PERRL/EOMI Neck: supple Cardiovascular: normal rate, regular rhythm Respiratory/Chest: lungs clear, normal breath sounds Abdomen: non tender, soft Extremities: normal range of motion 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 - Continue to monitor on Tele - Troponin trending down - Restart HTN medications - lasix, metop, amlodipine, lisinopril - Isorbide started - Hydralazine increased - Discontinued heparin gtt, patient to continue on Plavix and Aspirin - EKG prn for chest pain - Continue aspirin, statin - Keep K >4 and Mag >2 - Cardiology consultation, appreciate recommendations. - 11/04 - Patient to have Lexiscan performed however Dr. Culp and Dr. Antoine have refused to perform test 2' to patient having asthma and elevated troponin. Patient has little to no wheezing at this time and troponin is trending down. - Unable to perform CTA Coronaries as radiology does not have this capability - 11/05 - Initiating transfer to [facility] - to assist with transfer for cardiac catheterization. - Awaiting bed placement and insurance authorization. Covid negative. #CKD Stage 3 - Creatinine 2.2 - Lasix as above - UOP good #HTN - Restart home metop, lasix, amlodipine - Increased hydralazine #COPD - duonebs q6 prn - previously on prednisone 20mg for 1mo, will taper to 10mg ending 11/09 and further taper - Spiriva #Hypothyroidism - Continue home levothyroxine #Muscle Spasm - restarted home soma Diet Regular FEN Full Code Time spent 33 minutes with 16 minutes spent with care coordination, review of labs, imaging and counseling. D/w nursing staff and consultants. to assist with transfer process to [facility] Time of note does not reflect time of encounter Magdalena Morel M.D. Nov 07, 2020 09:33
--- NOTE | 2020-11-07 10:06 | Nephrology Progress Note ---
Assessment/Plan Plan #OVI vs OVI on CKD #CAD (S/p CABG 2004 at [facility]) # COPD # HTN- elevated # Hypothyroid - renal US with no acute findings - resume on lasix 40mg daily - amlodipine 10mg daily - add imdur 30mg daily - plan to transfer to [facility] for [facility] - hold ACEi - incease hydralazine 100mg TID - monitor renal function - avoid nephrotoxins time spent 65min Subjective ROS Limited/Unobtainable: No Constitutional: Reports: weakness HEENT: Denies: no symptoms, eye pain, blurred vision, tearing, double vision, ear pain, ear discharge, nose pain, nose congestion, throat pain, throat swelling, mouth pain, mouth swelling, other Genitourinary: Denies: no symptoms, burning, discharge, frequency, flank pain, hematuria, incontinence, pain, urgency, other Neurologic/Psychiatric: Denies: no symptoms, anxiety, depressed, emotional problems, headache, numbness, paresthesia, pre-existing deficit, seizure, tingling, tremors, weakness, other Subjective Cr stable BP improved hydralazine adjusted plan to transfer to [facility] for [facility] renal US with no acute findings Objective Objective Last 24 Hour Vital Signs Date Time Temp Pulse Resp B/P (MAP) Pulse Ox O2 Delivery O2 Flow Rate FiO2 11/07/20 09:00 Nasal Cannula 2.0 11/07/20 08:42 125/65 11/07/20 08:42 76 125/65 11/07/20 08:42 76 125/65 11/07/20 08:00 97.4 76 20 125/65 (85) 91 11/07/20 08:00 93 11/07/20 05:49 168/76 11/07/20 04:00 97.1 58 20 166/82 (110) 96 11/07/20 04:00 62 11/07/20 01:07 59 18 95 Room Air 21 11/07/20 01:05 59 18 95 Room Air 21 11/07/20 00:00 66 11/07/20 00:00 98.2 62 18 152/74 (100) 96 11/06/20 21:00 Room Air 11/06/20 20:39 164/84 11/06/20 20:00 59 11/06/20 20:00 97.9 56 18 164/84 (110) 96 11/06/20 19:35 58 18 94 Room Air 21 11/06/20 19:32 58 18 94 Room Air 21 11/06/20 16:14 172/88 11/06/20 16:00 97.5 56 16 172/88 (116) 94 11/06/20 16:00 56 11/06/20 13:46 162/83 11/06/20 13:29 64 17 92 Room Air 21 11/06/20 13:28 64 17 92 Room Air 21 11/06/20 12:00 97.9 57 18 162/83 (109) 92 11/06/20 12:00 57 Intake and Output 11/06/20 11/07/20 19:00 07:00 Intake Total 635.564 ml 480 ml Output Total 500 ml Balance 135.564 ml 480 ml Intake Oral 500 ml 480 ml IV Total 135.564 ml Output Urine Total 500 ml # Voids 3 2 Laboratory Tests 11/06/20 10:40: Activated Partial Thromboplast Time 86H Height (Feet): 5 Height (Inches): 6.00 Weight (Pounds): 193 Ainka Tejada M.D. Nov 07, 2020 10:06
[2020-11-07 12:00] VITALS: BP 141/73
[2020-11-07 12:35] LABS: CALCIUM 8.1 MG/DL (8.5-10.1); CREATININE 2.3 MG/DL (0.55-1.30); PHOSPHORUS 3.8 MG/DL (2.5-4.9); POTASSIUM 4.5 MMOL/L (3.5-5.1)
[2020-11-07 16:00] VITALS: BP 142/70
--- NOTE | 2020-11-07 19:15 | NUR ---
NURSE NOTES: Report received from Laura CANADA. Patient is in bed asleep. No SOB or distress. Call light and bed side table within reach. Bed at lowest position locked with siderails up. Will continue with plan of care.
--- NOTE | 2020-11-07 19:24 | NUR ---
NURSE HAND-OFF REPORT: Important Events on Shift: Pending transfer to [facility] Patient Status: Stable Diet: Cardiac Pending Orders: Pending Results/Labs: Pending MD notification: Latest Vital Signs: Temperature 97.5 , Pulse 67 , B/P 142 /70 , Respiratory Rate 20 , O2 SAT 93 , Nasal Cannula, O2 Flow Rate 2.0 . Vital Sign Comment: Stable EKG Rhythm: Sinus Bradycardia Rhythm change?: N MD Notified?: N -Dr. Jamie HOWARD Response: Message left await call Latest Thorpe Fall Score: 20 Fall Risk: Low Risk Safety Measures: Call light Within Reach, Bed Alarm Zone 1, Side Rails Side Rails x2, Bed position Low and Locked. Fall Precautions: Yellow Socks Patient Fall Education Report given to Chela/NANCIE.
[2020-11-07 20:00] VITALS: BP 110/68
[2020-11-07] MEDS: Atorvastatin 20mg tab ORAL SCH (21:00)
[2020-11-08] VITALS (7 sets, daily range): BP systolic 116–147; BP diastolic 68–89
--- NOTE | 2020-11-08 01:39 | NUR ---
HAND-OFF: Report given to NANCIE Lira. Patient stable alert and oriented x4. No SOB or distress. Patient is asleep. Endorsed that patient to be transferred to [facility] when bed becomes available. Endorsed plan of care.
--- NOTE | 2020-11-08 01:45 | NUR ---
NURSE NOTES: Received report from Chela /NANCIE. Pt in bed sleeping at this time, alert and oriented X4, able to make needs know. On 2L nasal cannula saturating 94%, no distress or SOB noted. pt is awaiting a bed to transfer to [facility],IV on right hand 22G and Left FA 20G, both SL patent and flushed no erythema or bleeding noted. Bed in lowest position and locked. Call light within reach, encouraged to use it when needed. Side rails up X2. Will continue plan of care.
[2020-11-08] MEDS: HYDROcodone/Acetamin 5/325 tab ORAL PRN ×3 (03:46→19:16)
[2020-11-08] MEDS: HydrALAZINE 50mg tab ORAL SCH ×3 (05:37→20:54)
--- NOTE | 2020-11-08 07:36 | NUR ---
NURSE HAND-OFF REPORT: Important Events on Shift: Patient Status: No acute distress Diet: Cardiac Pending Orders: Pending Results/Labs: Pending MD notification: Latest Vital Signs: Temperature 97.5 , Pulse 55 , B/P 130 /68 , Respiratory Rate 16 , O2 SAT 94 , Nasal Cannula, O2 Flow Rate 2.0 . Vital Sign Comment: EKG Rhythm: Sinus Bradycardia Rhythm change?: N MD Notified?: N -Dr. Jamie HOWARD Response: Message left await call Latest Thorpe Fall Score: 20 Fall Risk: Low Risk Safety Measures: Call light Within Reach, Bed Alarm Zone 1, Side Rails Side Rails x2, Bed position Low and Locked. Fall Precautions: Yellow Socks Patient Fall Education Report given to Christine RN and Payton CANADA.
--- NOTE | 2020-11-08 07:36 | NUR ---
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 PER SUE [facility] IS FULL TO CAPACITY AND STATED IF WE CAN FIND AN ACCEPTING HOSPITAL FOR THE CARDIAC CATH, THEY WILL BE WILLING TO DO A LETTER OF AGREEMENT. FAXED CLINICALS THIS MORNING TO [facility] T: [phone] F: [phone] PROVIDED [facility]'S CONTACT INFORMATION FOR BOTH PUBLIC RELATIONS ACCOUNT SUPERVISOR JEN PARADA T: [phone] JEN ROGERS T: [phone]
--- NOTE | 2020-11-08 08:05 | NUR ---
NURSE NOTES: Received patient report from NANCIE Lira. Patient is AO x4 awake and able to make needs known. Patient is on room air and shows no signs of respiratory distress. IV sites are patent and intact. There are no signs of erythema, infiltration, or bleeding. Bed is in the lowest position, call light is within reach, side rails up x3. Will continue to monitor.
--- NOTE | 2020-11-08 08:27 | NUR ---
CASE MANAGEMENT:REVIEW 11/08/20 SI: NSTEMI. COPD 97.5 55 130/68 94% ON 2L/NC IS: ASA PO QD IMDUR PO QD PLAVIX PO QD HYDRALAZINE PO Q8 PROTONIX PO QD PREDNISONE PO QD DUONEB HHN Q6HRS RTC SPIRIVA INH BID LASIX PO QD TOPROL XL PO QD NEURONTIN PO QD NORVASC PO QD SYNTHROID PO QD : TELEMETRY STATUS DCP: FROM HOME PLAN: [facility] [facility] TRIED TO GET PATIENT TRANSFERRED TO [facility] BUT THEY WERE FULL TO CAPACITY. FAXED CLINICALS TO [facility] THIS MORNING [facility] T; [phone] F: [phone]
--- NOTE | 2020-11-08 08:37 | Nephrology Progress Note ---
Assessment/Plan Plan #OVI vs OVI on CKD #CAD (S/p CABG 2004 at [facility]) # COPD # HTN- elevated # Hypothyroid - renal US with no acute findings - resume on lasix 40mg daily - amlodipine 10mg daily - add imdur 30mg daily - plan to transfer to [facility] for [facility] - hold ACEi - incease hydralazine 100mg TID - monitor renal function - avoid nephrotoxins time spent 65min Subjective ROS Limited/Unobtainable: No Constitutional: Reports: weakness HEENT: Denies: no symptoms, eye pain, blurred vision, tearing, double vision, ear pain, ear discharge, nose pain, nose congestion, throat pain, throat swelling, mouth pain, mouth swelling, other Genitourinary: Denies: no symptoms, burning, discharge, frequency, flank pain, hematuria, incontinence, pain, urgency, other Neurologic/Psychiatric: Denies: no symptoms, anxiety, depressed, emotional problems, headache, numbness, paresthesia, pre-existing deficit, seizure, tingling, tremors, weakness, other Subjective Cr stable BP improved hydralazine adjusted plan to transfer to [facility] for [facility] renal US with no acute findings Objective Objective Last 24 Hour Vital Signs Date Time Temp Pulse Resp B/P (MAP) Pulse Ox O2 Delivery O2 Flow Rate FiO2 11/08/20 05:37 130/68 11/08/20 04:00 97.5 64 16 130/68 (88) 94 11/08/20 04:00 55 11/08/20 00:00 59 11/08/20 00:00 97.4 62 15 130/82 (98) 94 11/07/20 22:00 110/68 11/07/20 21:00 Nasal Cannula 2.0 11/07/20 20:00 60 11/07/20 20:00 96.6 59 17 110/68 (82) 94 11/07/20 16:00 97.5 63 20 142/70 (94) 93 11/07/20 16:00 67 11/07/20 13:41 141/73 11/07/20 12:00 58 11/07/20 12:00 96.8 60 20 141/73 (95) 92 11/07/20 09:00 Nasal Cannula 2.0 11/07/20 08:42 125/65 11/07/20 08:42 76 125/65 11/07/20 08:42 76 125/65 Intake and Output 11/07/20 11/08/20 19:00 07:00 Intake Total 520 ml 240 ml Balance 520 ml 240 ml Intake Oral 520 ml 240 ml # Voids 3 2 # Bowel Movements 1 Laboratory Tests 11/07/20 11:40: Sodium Level 139, Potassium Level 4.5, Chloride Level 104, Carbon Dioxide Level 29, Anion Gap 6, Blood Urea Nitrogen 48H, Creatinine 2.3H, Estimat Glomerular Filtration Rate 25.9, Glucose Level 95, Calcium Level 8.1L, Phosphorus Level 3.8, Magnesium Level 2.2 Height (Feet): 5 Height (Inches): 6.00 Weight (Pounds): 193 Anika Tejada M.D. Nov 08, 2020 08:37
[2020-11-08] MEDS: Furosemide 40mg tab ORAL SCH (09:35)
[2020-11-08] MEDS: Metoprolol Succinate XL 50mg tab ORAL SCH (09:35)
[2020-11-08] MEDS: Aspirin EC 81mg tab ORAL SCH (09:35)
[2020-11-08] MEDS: Imdur 30mg tab ORAL SCH (09:36)
[2020-11-08 10:44] LABS: CALCIUM 7.8 MG/DL (8.5-10.1); CREATININE 2.6 MG/DL (0.55-1.30); POTASSIUM 4.2 MMOL/L (3.5-5.1)
--- NOTE | 2020-11-08 12:54 | NUR ---
TRANSFER UPDATE [facility] PROVIDED AUTHORIZATION FOR [facility] TO ACCEPT THIS PATIENT CALLED [facility] AND SPOKE WITH GRACE WHO CONFIRMED FINANCIAL CLEARANCE SOON A TELE BED BECOMES AVAILABLE [facility] WILL EITHER CALL THIS LITHODUPLICATOR OPERATOR OR THE NURSES STATION [facility] T:[phone]
--- NOTE | 2020-11-08 16:04 | General Progress Note ---
Subjective Date patient seen: Nov 08, 2020 Time patient seen: 08:16 ROS Limited/Unobtainable: No Constitutional: Denies: no symptoms, chills, diaphoresis, fever, malaise, weakness, other HEENT: Denies: no symptoms, eye pain, blurred vision, tearing, double vision, ear pain, ear discharge, nose pain, nose congestion, throat pain, throat swelling, mouth pain, mouth swelling, other Cardiovascular: Denies: no symptoms, chest pain, edema, irregular heart rate, lightheadedness, palpitations, syncope, other Respiratory: Denies: no symptoms, cough, orthopnea, shortness of breath, SOB with excertion, SOB at rest, sputum, stridor, wheezing, other Gastrointestinal/Abdominal: Denies: no symptoms, abdomen distended, abdominal pain, black stools, tarry stools, blood in stool, constipated, diarrhea, difficulty swallowing, nausea, poor appetite, poor fluid intake, rectal bleeding, vomiting, other Genitourinary: Denies: no symptoms, burning, discharge, frequency, flank pain, hematuria, incontinence, pain, urgency, other Neurologic/Psychiatric: Denies: no symptoms, anxiety, depressed, emotional problems, headache, numbness, paresthesia, pre-existing deficit, seizure, tingling, tremors, weakness, other Endocrine: Denies: no symptoms, excessive sweating, flushing, intolerance to co ld, intolerance to heat, increased hunger, increased thirst, increased urine, unexplained weight gain, unexplained weight loss, other Hematologic/Lymphatic: Denies: no symptoms, anemia, easy bleeding, easy bruising, other Allergies: Coded Allergies: No Known Allergies (Verified Allergy, Unknown, 09/05/07) Subjective Remains on telemetry No aberrant rhythms overnight Subjectively feeling well Discussed with patient possible transfer to [facility] She is aware and would appreciate discussion with SW/CM Objective Last 24 Hour Vital Signs Date Time Temp Pulse Resp B/P (MAP) Pulse Ox O2 Delivery O2 Flow Rate FiO2 11/08/20 14:35 97.6 11/08/20 14:04 145/75 11/08/20 12:00 97.6 60 18 145/75 (98) 94 11/08/20 12:00 56 11/08/20 10:18 97.5 11/08/20 09:36 147/89 11/08/20 09:36 61 147/89 11/08/20 09:35 61 147/89 11/08/20 09:00 Room Air 11/08/20 08:00 97.9 61 18 147/89 (108) 93 11/08/20 08:00 65 11/08/20 05:37 130/68 11/08/20 04:00 97.5 64 16 130/68 (88) 94 11/08/20 04:00 55 11/08/20 00:00 59 11/08/20 00:00 97.4 62 15 130/82 (98) 94 11/07/20 22:00 110/68 11/07/20 21:00 Nasal Cannula 2.0 11/07/20 20:00 60 11/07/20 20:00 96.6 59 17 110/68 (82) 94 11/07/20 16:00 97.5 63 20 142/70 (94) 93 11/07/20 16:00 67 Intake and Output 11/07/20 11/08/20 19:00 07:00 Intake Total 520 ml 240 ml Balance 520 ml 240 ml Intake Oral 520 ml 240 ml # Voids 3 2 # Bowel Movements 1 Laboratory Tests 11/08/20 10:00: Sodium Level 138, Potassium Level 4.2, Chloride Level 103, Carbon Dioxide Level 30, Anion Gap 5, Blood Urea Nitrogen 55H, Creatinine 2.6H, Estimat Glomerular Filtration Rate 22.5, Glucose Level 86, Calcium Level 7.8L Height (Feet): 5 Height (Inches): 6.00 Weight (Pounds): 193 General Appearance: no apparent distress, alert EENT: PERRL/EOMI Neck: supple Cardiovascular: normal rate, regular rhythm Respiratory/Chest: lungs clear, normal breath sounds Abdomen: non tender, soft Extremities: normal range of motion 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 - Continue to monitor on Tele - Troponin down trend - Restart HTN medications - lasix, metop, amlodipine, lisinopril - Isorbide started - Hydralazine increased - Discontinued heparin gtt, patient to continue on Plavix and Aspirin - EKG prn for chest pain - Continue aspirin, statin - Keep K >4 and Mag >2 - Cardiology consultation, appreciate recommendations. - 11/04 - Patient to have Lexiscan performed however Dr. Culp and Dr. Antoine have refused to perform test 2' to patient having asthma and elevated troponin. Patient has little to no wheezing at this time and troponin is trending down. - Unable to perform CTA Coronaries as radiology does not have this capability - 11/05 - Initiating transfer to outside hospital - CM to assist with transfer for cardiac catheterization. - Awaiting bed placement and insurance authorization at [facility] Covid negative. #CKD Stage 3 - Creatinine 2.2 - Lasix as above - UOP good #HTN - Restart home metop, lasix, amlodipine - Increased hydralazine #COPD - duonebs q6 prn - previously on prednisone 20mg for 1mo, will taper to 10mg ending 11/09 and further taper - Spiriva #Hypothyroidism - Continue home levothyroxine #Muscle Spasm - restarted home soma Diet Regular FEN Full Code Time spent 32 minutes with 18 minutes spent with care coordination, review of labs, imaging and counseling. D/w nursing staff and consultants. CM to assist with transfer process to outside hospital for cardiac cath. Time of note does not reflect time of encounter Magdalena Morel M.D. Nov 08, 2020 16:04
--- NOTE | 2020-11-08 18:45 | Cardiology Progress Note ---
Assessment/Plan Status: stable Assessment/Plan Assessment/Plan: #Hypertensive Urgency #Chest Pain #Tropinemia - Trend Trop q6 - Restart HTN medications - lasix, metop, amlodipine, lisinopril - Continued on Heparin gtt for concern for NSTEMI - EKG prn for chest pain - Continue aspirin, statin - Transfer to [facility] for angiogram - Nitro prn #HTN - Restart home metop, lasix, amlodipine, and lisinopril #Hypothyroidism - Continue home levothyroxine Subjective Cardiovascular: Reports: no symptoms Respiratory: Reports: no symptoms Gastrointestinal/Abdominal: Reports: no symptoms Genitourinary: Reports: no symptoms Subjective No acute events, troponin down trending, Cardiology Nuc Med refused to do stress testing given hx of asthma Awaiting transfer to [facility] for angiogram Objective Last 24 Hour Vital Signs Date Time Temp Pulse Resp B/P (MAP) Pulse Ox O2 Delivery O2 Flow Rate FiO2 11/08/20 16:00 97.6 56 18 127/71 (89) 93 11/08/20 16:00 69 11/08/20 14:35 97.6 11/08/20 14:04 145/75 11/08/20 12:00 97.6 60 18 145/75 (98) 94 11/08/20 12:00 56 11/08/20 10:18 97.5 11/08/20 09:36 147/89 11/08/20 09:36 61 147/89 11/08/20 09:35 61 147/89 11/08/20 09:00 Room Air 11/08/20 08:00 97.9 61 18 147/89 (108) 93 11/08/20 08:00 65 11/08/20 05:37 130/68 11/08/20 04:00 97.5 64 16 130/68 (88) 94 11/08/20 04:00 55 11/08/20 00:00 59 11/08/20 00:00 97.4 62 15 130/82 (98) 94 11/07/20 22:00 110/68 11/07/20 21:00 Nasal Cannula 2.0 11/07/20 20:00 60 11/07/20 20:00 96.6 59 17 110/68 (82) 94 General Appearance: no apparent distress, alert EENT: PERRL/EOMI, normal ENT inspection, TMs normal, pharynx normal Neck: non-tender, normal alignment, supple Rhythm: NSR Cardiovascular: normal peripheral pulses, normal rate Respiratory/Chest: chest wall non-tender, lungs clear, normal breath sounds Abdomen: normal bowel sounds, non tender, soft, no organomegaly Extremities: normal range of motion, non-tender, normal inspection, no calf tenderness 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, no motor/sensory deficits Intake and Output 11/07/20 11/08/20 19:00 07:00 Intake Total 520 ml 240 ml Balance 520 ml 240 ml Intake Oral 520 ml 240 ml # Voids 3 2 # Bowel Movements 1 Laboratory Tests Test 11/08/20 10:00 Sodium Level 138 MMOL/L (136-145) Potassium Level 4.2 MMOL/L (3.5-5.1) Chloride Level 103 MMOL/L (98-107) Carbon Dioxide Level 30 MMOL/L (21-32) Anion Gap 5 mmol/L (5-15) Blood Urea Nitrogen 55 mg/dL (7-18) H Creatinine 2.6 MG/DL (0.55-1.30) H Estimat Glomerular Filtration Rate 22.5 mL/min (>60) Glucose Level 86 MG/DL (74-106) Calcium Level 7.8 MG/DL (8.5-10.1) Ed Laird MD Nov 08, 2020 18:45
--- NOTE | 2020-11-08 19:10 | NUR ---
NURSE HAND-OFF REPORT: Important Events on Shift:[NA] Patient Status: [Full code] Diet: [Cardiac] Pending Orders: [Transfer to [facility]. Awaiting for bed to open up. ] Pending Results/Labs:[NA] Pending MD notification:[NA] Latest Vital Signs: Temperature 97.6 , Pulse 56 , B/P 127 /71 , Respiratory Rate 18 , O2 SAT 93 , Room Air, O2 Flow Rate 2.0 . Vital Sign Comment: [] EKG Rhythm: Sinus Rhythm Rhythm change?: N Notified?: N -Dr. Jamie HOWARD Response: Message left await call Latest Thorpe Fall Score: 35 Fall Risk: Medium Risk Safety Measures: Call light Within Reach, Bed Alarm Zone 1, Side Rails Side Rails x2, Bed position Low and Locked. Fall Precautions: Yellow Socks Patient Fall Education Report given to [NANCIE Ruiz].
[2020-11-08] MEDS: Atorvastatin 20mg tab ORAL SCH (20:54)
[2020-11-09] VITALS: BP 120/74
[2020-11-09] MEDS: HYDROcodone/Acetamin 5/325 tab ORAL PRN ×4 (01:47→21:08)
[2020-11-09 04:00] VITALS: BP 151/75
--- NOTE | 2020-11-09 06:03 | NUR ---
NURSE NOTES: Called Jamie's exchange regarding patient's [place]. Awaiting call back.
[2020-11-09] MEDS: HydrALAZINE 50mg tab ORAL SCH ×3 (06:09→23:05)
--- NOTE | 2020-11-09 07:37 | NUR ---
NURSE HAND-OFF REPORT: Important Events on Shift:[[place] reached stop date during the shift. Called Jamie arrieta for renewal, no callback yet. Endorsed to AM shift] Patient Status: [FC] Diet: [Cardiac diet] Pending Orders: [] Pending Results/Labs:[] Pending MD notification:[] Latest Vital Signs: Temperature 97.5 , Pulse 54 , B/P 151 /75 , Respiratory Rate 16 , O2 SAT 94 , Room Air, O2 Flow Rate 2.0 . Vital Sign Comment: [] EKG Rhythm: Sinus Bradycardia Rhythm change?: N Notified?: N -Dr. Jamie HOWARD Response: Message left await call Latest Thorpe Fall Score: 35 Fall Risk: Medium Risk Safety Measures: Call light Within Reach, Bed Alarm Zone 1, Side Rails Side Rails x2, Bed position Low and Locked. Fall Precautions: Yellow Socks Patient Fall Education Report given to [NANCIE King].
[2020-11-09 08:00] VITALS: BP 158/88
--- NOTE | 2020-11-09 08:10 | NUR ---
NURSE NOTES: Received patient report from NANCIE Espinosa. Patient shows no signs of distress at the time. She is AO x4 awake and able to make needs known. Patient is on room air and shows no signs of respiratory distress at the time. IV is intact and patent. There are no signs of erythema, infiltration, or bleeding. Bed is in the lowest position, call light is within reach, side rails up x2. Will continue to monitor.
--- NOTE | 2020-11-09 08:29 | NUR ---
RD ASSESSMENT & RECOMMENDATIONS SEE CARE ACTIVITY FOR COMPLETE ASSESSMENT DAILY ESTIMATED NEEDS: Needs based on Cardiac/ 63kg abw 25-30 kcals/kg 5731-5952 total kcals 1-1.3 g protein/kg 63-82 g total protein 20-25 mL/kg 5114-8088 total fluid mLs NUTRITION DIAGNOSIS: Altered nutrition related lab values R/T renal dysfunction, altered lipid metabolism as evidenced by elev creat (2.6), elev triglyceride (354), elev cholesterol (230) CURRENT DIET:CARDIAC PO DIET RECOMMENDATIONS: Maintain CARDIAC diet ADDITIONAL RECOMMENDATIONS: * Daily standing weights * Monitor lytes closely w/ Lasix, replete as needed * Monitor BGs closely w/ Prednisone: good BG control at this time
--- NOTE | 2020-11-09 08:34 | Nephrology Progress Note ---
Assessment/Plan Plan #OVI vs OVI on CKD #CAD (S/p CABG 2004 at [facility]) # COPD # HTN- elevated # Hypothyroid - renal US with no acute findings - HOLD lasix 40mg daily - amlodipine 10mg daily - add imdur 30mg daily - plan to transfer to [facility] for [facility] - hold ACEi - incease hydralazine 100mg TID - monitor renal function - avoid nephrotoxins time spent 65min Subjective ROS Limited/Unobtainable: No Constitutional: Reports: weakness HEENT: Denies: no symptoms, eye pain, blurred vision, tearing, double vision, ear pain, ear discharge, nose pain, nose congestion, throat pain, throat swelling, mouth pain, mouth swelling, other Genitourinary: Denies: no symptoms, burning, discharge, frequency, flank pain, hematuria, incontinence, pain, urgency, other Neurologic/Psychiatric: Denies: no symptoms, anxiety, depressed, emotional problems, headache, numbness, paresthesia, pre-existing deficit, seizure, tingling, tremors, weakness, other Subjective Cr 2.6 will hold lasix BP improved hydralazine adjusted plan to transfer to [facility] for [facility] renal US with no acute findings Objective Objective Last 24 Hour Vital Signs Date Time Temp Pulse Resp B/P (MAP) Pulse Ox O2 Delivery O2 Flow Rate FiO2 11/09/20 06:09 151/75 11/09/20 04:25 97.5 11/09/20 04:00 56 11/09/20 04:00 97.1 54 16 151/75 (100) 94 11/09/20 02:17 97.5 11/09/20 00:00 60 11/09/20 00:00 97.5 56 20 120/74 (89) 94 11/08/20 22:00 97.5 56 20 116/76 (89) 94 11/08/20 21:03 97.6 11/08/20 21:00 Room Air 11/08/20 20:54 121/76 11/08/20 20:00 97.5 56 18 119/76 (90) 94 11/08/20 20:00 60 11/08/20 19:46 97.6 11/08/20 16:00 97.6 56 18 127/71 (89) 93 11/08/20 16:00 69 11/08/20 14:35 97.6 11/08/20 14:04 145/75 11/08/20 12:00 97.6 60 18 145/75 (98) 94 11/08/20 12:00 56 11/08/20 10:18 97.5 11/08/20 09:36 147/89 11/08/20 09:36 61 147/89 11/08/20 09:35 61 147/89 11/08/20 09:00 Room Air Intake and Output 11/08/20 11/09/20 19:00 07:00 Intake Total 300 ml 150 ml Balance 300 ml 150 ml Intake Oral 300 ml 150 ml # Voids 3 2 Laboratory Tests 11/08/20 10:00: Sodium Level 138, Potassium Level 4.2, Chloride Level 103, Carbon Dioxide Level 30, Anion Gap 5, Blood Urea Nitrogen 55H, Creatinine 2.6H, Estimat Glomerular Filtration Rate 22.5, Glucose Level 86, Calcium Level 7.8L Height (Feet): 5 Height (Inches): 6.00 Weight (Pounds): 193 Anika Tejada M.D. Nov 09, 2020 08:34
[2020-11-09] MEDS: Aspirin EC 81mg tab ORAL SCH (09:01)
[2020-11-09] MEDS: Imdur 30mg tab ORAL SCH (09:01)
[2020-11-09] MEDS: Metoprolol Succinate XL 50mg tab ORAL SCH (09:02)
[2020-11-09 12:00] VITALS: BP 125/72
--- NOTE | 2020-11-09 12:44 | NUR ---
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 INQUIRY FAXED TO [facility] FOR ACCEPTANCE. WILL [phone] AUTH FOR TRANSFER [id number] Addendum: 11/09/20 at 1522 by ANJU PARKER RN CM SPOKE WITH RUSTY HURTADOMARKETING ACCOUNT MANAGER AT [facility], RECEIVED CLINICALS WITH NO BEDS AT THIS TIME, HOWEVER SHE WILL WORK ON IT. WILL FOLLOW UP. RUSTY [phone] Addendum: 11/09/20 at 1829 by ANJU PARKER RN CM SPOKE WITH [facility], ADDITIONAL CLINICALS FAXED REQUESTED. [place] TO CALL NURSING [facility] WHEN BED AVAILABLE.
[2020-11-09 16:00] VITALS: BP 122/76
--- NOTE | 2020-11-09 17:05 | General Progress Note ---
Subjective Allergies: Coded Allergies: No Known Allergies (Verified Allergy, Unknown, 09/05/07) All Systems: reviewed and negative except above Subjective Chart reviewed. Here for chest pain and positive troponin. Unable to perform stress test, awaiting transfer to OSH for cardiac cath. Today feels well. No more chest pain SOB fever or chills. BP better controlled. Review of systems: Constitutional: Denies: chills, diaphoresis, fever, malaise, weakness, other HEENT: Denies: eye pain, blurred vision, tearing, double vision, ear pain, ear discharge, nose pain, nose congestion, throat pain, throat swelling, mouth pain, mouth swelling, Cardiovascular: Denies: chest pain, edema, lightheadedness, palpitations, syncope, Respiratory: Denies: cough, orthopnea, shortness of breath, SOB with excertion, SOB at rest, sputum, stridor, wheezing, other Gastrointestinal/Abdominal: Denies: abdomen distended, abdominal pain, black st ools, tarry stools, blood in stool, constipated, diarrhea, difficulty swallowing, nausea, poor appetite, poor fluid intake, rectal bleeding, vomiting, other Genitourinary: Denies: burning, discharge, frequency, flank pain, hematuria, incontinence, pain, urgency, other Neurologic/Psychiatric: Denies: anxiety, depressed, emotional problems, headache, numbness, paresthesia, pre-existing deficit, seizure, tingling, tremors, weakness, other Endocrine: Denies: excessive sweating, flushing, intolerance to cold, intolerance to heat, increased hunger, increased thirst, increased urine, unexplained weight gain, unexplained weight loss, other MSK: denies joint pains, swelling, stiffness Hematologic/Lymphatic: Denies: anemia, easy bleeding, easy bruising, other Objective Last 24 Hour Vital Signs Date Time Temp Pulse Resp B/P (MAP) Pulse Ox O2 Delivery O2 Flow Rate FiO2 11/09/20 15:45 98.1 11/09/20 15:45 98.1 11/09/20 14:36 125/72 11/09/20 12:00 57 11/09/20 12:00 98.1 55 18 125/72 (89) 100 11/09/20 10:46 97.5 11/09/20 09:38 97.5 11/09/20 09:02 66 158/88 11/09/20 09:01 158/88 11/09/20 09:01 66 158/88 11/09/20 09:00 Nasal Cannula 1.0 11/09/20 08:00 56 11/09/20 08:00 97.3 56 16 158/88 (111) 96 11/09/20 06:09 151/75 11/09/20 04:25 97.5 11/09/20 04:00 56 11/09/20 04:00 97.1 54 16 151/75 (100) 94 11/09/20 02:17 97.5 11/09/20 00:00 60 11/09/20 00:00 97.5 56 20 120/74 (89) 94 11/08/20 22:00 97.5 56 20 116/76 (89) 94 11/08/20 21:03 97.6 11/08/20 21:00 Room Air 11/08/20 20:54 121/76 11/08/20 20:00 97.5 56 18 119/76 (90) 94 11/08/20 20:00 60 11/08/20 19:46 97.6 Intake and Output 11/08/20 11/09/20 19:00 07:00 Intake Total 300 ml 150 ml Balance 300 ml 150 ml Intake Oral 300 ml 150 ml # Voids 3 2 Height (Feet): 5 Height (Inches): 6.00 Weight (Pounds): 193 General Appearance: WD/WN, no apparent distress EENT: PERRL/EOMI, normal ENT inspection Neck: non-tender, normal alignment Cardiovascular: normal peripheral pulses, normal rate Respiratory/Chest: chest wall non-tender, lungs clear Abdomen: normal bowel sounds, non tender, soft, no organomegaly Extremities: normal range of motion, non-tender, normal inspection 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 No wheezes, rhonchi, or rales GI: Soft, nontender, nondistended, bowel sounds present Neuro: CN 2-12 intact bilaterally, no focal signs. Ext: No lower extremity edema bilaterally Skin: no rashes lesions or ulcers Msk: Joints symmetrical in upper extremity and lower extremity bilaterally, no joint swelling. Lymph: No lymphadenopathy in upper extremity and lower extremity Assessment/Plan Status: stable Assessment/Plan: Assessment/Plan: #NSTEMI Type 2 #NSVT #Hypertensive Urgency #Chest Pain - resolved Initial presentation with elevated BP and symptoms of dizziness that have resolved. - Continue to monitor on Tele - Troponin down trend - Restart HTN medications - lasix, metop, amlodipine, lisinopril - Isorbide started - Hydralazine increased - Discontinued heparin gtt, patient to continue on Plavix and Aspirin - EKG prn for chest pain - Continue aspirin, statin - Keep K >4 and Mag >2 - Cardiology consultation, appreciate recommendations. - 11/04 - Patient to have Lexiscan performed however Dr. Culp and Dr. Antoine have refused to perform test 2' to patient having asthma and elevated troponin. Patient has little to no wheezing at this time and troponin is trending down. - Unable to perform CTA Coronaries as radiology does not have this capability - 11/05 - Initiating transfer to outside hospital - to assist with transfer for cardiac catheterization. Pending either Sue or Yadira - Awaiting bed placement and insurance authorization at [facility] Covid negative. #OVI on CKD Stage 3 - Cr uptrending - holding lasix for 3 days (restart on Sunday11/12/20) - Appreciate nephrology consult: Dr. Tejada - ULITZY good #HTN - Restart home BP meds - Increased hydralazine 100mg PO TID #COPD - duonebs q6 prn - previously on prednisone 20mg for 1mo, will taper to 10mg ending 11/09 and further taper - Spiriva #Hypothyroidism - Continue home levothyroxine #Muscle Spasm - restarted home soma Diet Regular FEN Full Code Time spent 38 minutes with 20 minutes spent with care coordination, review of labs, imaging and counseling. D/w nursing staff and consultants. CM to assist with transfer process to outside hospital for cardiac cath. I spent an additional 32 minutes reviewing previous hospital records including prior notes, consultations, labs, imaging, microbiology, etc. Time of note does not reflect time of encounter Harley Hammond D.O. Nov 09, 2020 17:05
--- NOTE | 2020-11-09 19:27 | NUR ---
NURSE HAND-OFF REPORT: Important Events on Shift:[NA Patient Status: [Full code] Diet: [Cardiac] Pending Orders: [] Pending Results/Labs:[] Pending MD notification:[] Latest Vital Signs: Temperature 98.2 , Pulse 62 , B/P 122 /76 , Respiratory Rate 16 , O2 SAT 92 , Nasal Cannula, O2 Flow Rate 1.0 . Vital Sign Comment: [] EKG Rhythm: Sinus Rhythm Rhythm change?: N MD Notified?: N -Dr. Jamie HOWARD Response: Message left await call Latest Thorpe Fall Score: 35 Fall Risk: Medium Risk Safety Measures: Call light Within Reach, Bed Alarm Zone 1, Side Rails Side Rails x2, Bed position Low and Locked. Fall Precautions: Yellow Socks Patient Fall Education Report given to [NANCIE Perez].
[2020-11-09 20:00] VITALS: BP 129/75
[2020-11-09] MEDS: Atorvastatin 20mg tab ORAL SCH (20:54)
[2020-11-09] MEDS: Heparin 5000 units/ml inj SUBQ SCH (20:56)
--- NOTE | 2020-11-09 21:22 | Cardiology Progress Note ---
Assessment/Plan Status: stable Assessment/Plan Assessment/Plan: #Hypertensive Urgency #Chest Pain #Tropinemia - Trend Trop q6 - Restart HTN medications - lasix, metop, amlodipine, lisinopril - Continued on Heparin gtt for concern for NSTEMI - EKG prn for chest pain - Continue aspirin, statin - Transfer to [facility] for angiogram - Nitro prn #HTN - Restart home metop, lasix, amlodipine, and lisinopril #Hypothyroidism - Continue home levothyroxine Subjective Cardiovascular: Reports: no symptoms Respiratory: Reports: no symptoms Gastrointestinal/Abdominal: Reports: no symptoms Genitourinary: Reports: no symptoms Subjective No acute events, troponin down trending, Cardiology Nuc Med refused to do stress testing given hx of asthma Awaiting transfer to [facility] for angiogram Objective Last 24 Hour Vital Signs Date Time Temp Pulse Resp B/P (MAP) Pulse Ox O2 Delivery O2 Flow Rate FiO2 11/09/20 16:00 98.2 56 16 122/76 (91) 92 11/09/20 16:00 62 11/09/20 15:45 98.1 11/09/20 15:45 98.1 11/09/20 14:36 125/72 11/09/20 12:00 57 11/09/20 12:00 98.1 55 18 125/72 (89) 100 11/09/20 10:46 97.5 11/09/20 09:38 97.5 11/09/20 09:02 66 158/88 11/09/20 09:01 158/88 11/09/20 09:01 66 158/88 11/09/20 09:00 Nasal Cannula 1.0 11/09/20 08:00 56 11/09/20 08:00 97.3 56 16 158/88 (111) 96 11/09/20 06:09 151/75 11/09/20 04:25 97.5 11/09/20 04:00 56 11/09/20 04:00 97.1 54 16 151/75 (100) 94 11/09/20 02:17 97.5 11/09/20 00:00 60 11/09/20 00:00 97.5 56 20 120/74 (89) 94 11/08/20 22:00 97.5 56 20 116/76 (89) 94 General Appearance: no apparent distress, alert EENT: PERRL/EOMI, normal ENT inspection, TMs normal Neck: non-tender, normal alignment, supple, normal inspection, no JVD Rhythm: NSR Cardiovascular: normal peripheral pulses, normal rate, regular rhythm Respiratory/Chest: chest wall non-tender, lungs clear, normal breath sounds Abdomen: normal bowel sounds, non tender, soft, no organomegaly Extremities: normal range of motion, non-tender, normal inspection 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
--- NOTE | 2020-11-09 21:23 | NUR ---
NURSE NOTES: Report received from NANCIE King. Patient is awake on bed, alert and oriented x 4. Cardiac is in place shows sinus rhythm with no chest pain reported. On cardiac diet, instructed and amenable. IV site is on right hand g-22 saline locked and left forearm g-20 saline locked that is patent and intact. Safety measures are in place, bed in lowest and locked position, side rails up x 2, call light button and bedside table within reach, instructed to call fro any assistance needed. Will continue plan of care.
[2020-11-10] VITALS: BP 110/66
[2020-11-10] MEDS: HYDROcodone/Acetamin 5/325 tab ORAL PRN ×4 (03:14→17:27)
[2020-11-10 04:00] VITALS: BP 125/69
[2020-11-10] MEDS: HydrALAZINE 50mg tab ORAL SCH ×2 (06:39→14:00)
--- NOTE | 2020-11-10 07:26 | NUR ---
NURSE NOTES: Report received from NANCIE Townsend. Patient is A/O x4 and verbally responsive. Pt has IV site is on RH 22G saline locked and LFA 20G which is also saline locked, both flushed and patent. No SOB or acute distress noted. Pain noted on lower back and medication will be given. Pt states pain is chronic and deals with it everyday. Safety measures are in place, bed in lowest and locked position, side rails up x 2, call light and bedside table within reach and educated to use when assistance is needed. Will continue plan of care.
--- NOTE | 2020-11-10 07:34 | NUR ---
NURSE HAND-OFF REPORT: Important Events on Shift: Patient complaints of pain on lower back pain, norco 5/325mg was given. Patient Status: Patient is awake on bed, plan of care endorsed. Diet: Cardiac diet Pending Orders: none Pending Results/Labs:AM lab result Pending MD notification: Latest Vital Signs: Temperature 96.8 , Pulse 63 , B/P 125 /69 , Respiratory Rate 19 , O2 SAT 94 , Nasal Cannula, O2 Flow Rate 2.0 . Vital Sign Comment: stable EKG Rhythm: Sinus Rhythm Rhythm change?: N Notified?: N -Dr. Jamie HOWARD Response: Message left await call Latest Thorpe Fall Score: 20 Fall Risk: Low Risk Safety Measures: Call light Within Reach, Bed Alarm Zone 1, Side Rails Side Rails x2, Bed position Low and Locked. Fall Precautions: Yellow Socks Patient Fall Education Report given to NANCIE Stephens.
[2020-11-10 08:00] VITALS: BP 122/68
[2020-11-10] MEDS: Aspirin EC 81mg tab ORAL SCH (08:52)
[2020-11-10] MEDS: Imdur 30mg tab ORAL SCH (08:52)
[2020-11-10] MEDS: Metoprolol Succinate XL 50mg tab ORAL SCH (08:53)
[2020-11-10 08:56] LABS: BASOPHILS % (AUTO) 0.6 % (0.0-2.0); EOSINOPHILS % (AUTO) 0.5 % (0.0-3.0); HEMATOCRIT 38.2 % (37.0-47.0); LYMPHOCYTES % (AUTO) 16.7 % (20.0-45.0); MEAN CORPUSCULAR VOLUME 93 FL (80-99); MONOCYTES % (AUTO) 5.3 % (1.0-10.0); PLATELET COUNT 198 K/UL (150-450); RED BLOOD COUNT 4.12 M/UL (4.20-5.40); RED CELL DISTRIBUTION WIDTH 15.3 % (11.6-14.8); WHITE BLOOD COUNT 8.7 K/UL (4.8-10.8)
[2020-11-10] MEDS: Heparin 5000 units/ml inj SUBQ SCH (09:00)
[2020-11-10 09:09] LABS: CALCIUM 7.1 MG/DL (8.5-10.1); CREATININE 2.8 MG/DL (0.55-1.30); PHOSPHORUS 4.7 MG/DL (2.5-4.9); POTASSIUM 3.9 MMOL/L (3.5-5.1)
--- NOTE | 2020-11-10 09:30 | NUR ---
TRANSFER UPDATE CALLED [facility] ~ THEY ARE FULL TO CAPACITY CALLED [facility] ATTEND[facility] ~ THEY GAVE AUTHORIZATION TO [facility] UNABLE TO GET THROUGH TO [facility] O[facility] T; [phone] TO F/U ON BED AVAILABILITY FOR CARDIAC CATH Addendum: 11/10/20 at 0948 by UMA LUCAS LVN LVN CALLED [facility] DIRECTLY AND ALSO CALLED [facility] MA[facility] LINE T:[phone] STILL, BRYANT NOLAND NOT ANSWERING THE PHONE
[2020-11-10 12:00] VITALS: BP 125/67
--- NOTE | 2020-11-10 14:19 | NUR ---
CASE MANAGEMENT:REVIEW 11/10/20 SI: NSTEMI. COPD 97.4 62 20 125/67 95% on 2l/nc BUN+65 CR+2.8 CA-7.1 TROPONIN(+) 0.138 IS: ASA PO QD IMDUR PO QD PLAVIX PO QD HYDRALAZINE PO Q8 PROTONIX PO QD PREDNISONE PO QD DUONEB HHN Q6HRS RTC SPIRIVA INH BID LASIX PO QD TOPROL XL PO QD NEURONTIN PO QD NORVASC PO QD SYNTHROID PO QD : TELEMETRY STATUS DCP: FROM HOME PLAN: REFERRED TO [facility] ~ NO BEDS REFERRED TO [facility] ~ FULL TO CAPACITY REFERRED TO [facility] ~ THEY MAY HAVE A BED LATER TODAY
[2020-11-10 16:00] VITALS: BP 122/64
--- NOTE | 2020-11-10 16:33 | NUR ---
TRANSFER UPDATE [facility] IS WILLING TO ACCEPT THIS PATIENT THEY WILL CALL THE NURSES STATION WHEN BED AVAILABLE [facility] CONTROL PANEL OPERATOR T: [phone] Addendum: 11/10/20 at [address] MARCELINO WILL BE ACCEPTING PHYSICIAN AT [facility]
[2020-11-10] MEDS ORDERED: SPIRIVA18 MCG INH (17:17)
[2020-11-10] MEDS ORDERED: PROTONIX40 MG ORAL (17:17)
[2020-11-10] MEDS ORDERED: METOPROLOL SUCC50 MG ORAL (17:18)
[2020-11-10] MEDS ORDERED: SYNTHROID100 MCG ORAL (17:19)
[2020-11-10] MEDS ORDERED: ISOSORBIDE MONO30 M1 PO (17:21)
[2020-11-10] MEDS ORDERED: COMBIVENT RESPIM4 GM IH ×2 (17:22→17:23)
[2020-11-10] MEDS ORDERED: HYDRALAZINE HCL50 MG ORAL (17:24)
[2020-11-10] MEDS ORDERED: HEPARIN SO5000 UNIT2 SUBQ (17:25)
[2020-11-10] MEDS ORDERED: PLAVIX75 MG ORAL (17:26)
[2020-11-10] MEDS ORDERED: NORCO 5-325 TA1 EAC1 ORAL (17:28)
[2020-11-10] MEDS ORDERED: ASPIRIN EC81 MG ORAL (17:29)
[2020-11-10] MEDS ORDERED: AMLODIPINE BESY10 MG ORAL (17:30)
--- NOTE | 2020-11-10 18:00 | NUR ---
NURSES NOTES: Report given to NANCIE Travis at [facility].
--- NOTE | 2020-11-10 19:14 | General Progress Note ---
Subjective Allergies: Coded Allergies: No Known Allergies (Verified Allergy, Unknown, 09/05/07) Subjective No acute events overnight per nursing. Patient without symptoms. Without chest pain. Or SOB. Pending transfer to OSH. Possibly [facility] Review of systems: Constitutional: Denies: chills, diaphoresis, fever, malaise, weakness, other HEENT: Denies: eye pain, blurred vision, tearing, double vision, ear pain, ear discharge, nose pain, nose congestion, throat pain, throat swelling, mouth pain, mouth swelling, Cardiovascular: Denies: chest pain, edema, lightheadedness, palpitations, syncope, Respiratory: Denies: cough, orthopnea, shortness of breath, SOB with excertion, SOB at rest, sputum, stridor, wheezing, other Gastrointestinal/Abdominal: Denies: abdomen distended, abdominal pain, black stools, tarry stools, blood in stool, constipated, diarrhea, difficulty swallowing, nausea, poor appetite, poor fluid intake, rectal bleeding, vomiting, other Genitourinary: Denies: burning, discharge, frequency, flank pain, hematuria, incontinence, pain, urgency, other Neurologic/Psychiatric: Denies: anxiety, depressed, emotional problems, headache, numbness, paresthesia, pre-existing deficit, seizure, tingling, tremors, weakness, other Endocrine: Denies: excessive sweating, flushing, intolerance to cold, intolerance to heat, increased hunger, increased thirst, increased urine, unexplained weight gain, unexplained weight loss, other MSK: denies joint pains, swelling, stiffness Hematologic/Lymphatic: Denies: anemia, easy bleeding, easy bruising, other Objective Last 24 Hour Vital Signs Date Time Temp Pulse Resp B/P (MAP) Pulse Ox O2 Delivery O2 Flow Rate FiO2 11/10/20 16:00 53 11/10/20 16:00 96.8 55 20 122/64 (83) 94 11/10/20 14:00 125/67 11/10/20 12:00 56 11/10/20 12:00 97.4 62 20 125/67 (86) 95 11/10/20 09:00 Nasal Cannula 2.0 11/10/20 08:53 63 125/69 11/10/20 08:52 125/69 11/10/20 08:52 63 125/69 11/10/20 08:00 97.2 62 20 122/68 (86) 94 11/10/20 08:00 59 11/10/20 06:39 125/69 11/10/20 04:00 96.8 59 19 125/69 (87) 94 11/10/20 04:00 63 11/10/20 00:00 54 11/10/20 00:00 96.8 55 20 110/66 (81) 92 11/09/20 23:05 129/75 11/09/20 21:00 Nasal Cannula 2.0 11/09/20 20:00 69 11/09/20 20:00 97.2 62 20 129/75 (93) 91 Intake and Output 11/09/20 11/10/20 19:00 07:00 Intake Total 350 ml 500 ml Balance 350 ml 500 ml Intake Oral 350 ml 500 ml # Voids 2 3 Laboratory Tests 11/10/20 08:10: White Blood Count 8.7, Red Blood Count 4.12L, Hemoglobin 13.0, Hematocrit 38.2, Mean Corpuscular Volume 93, Mean Corpuscular Hemoglobin 31.6H, Mean Corpuscular Hemoglobin Concent 34.1, Red Cell Distribution Width 15.3H, Platelet Count 198, Mean Platelet Volume 7.8, Neutrophils (%) (Auto) 77.0H, Lymphocytes (%) (Auto) 16.7L, Monocytes (%) (Auto) 5.3, Eosinophils (%) (Auto) 0.5, Basophils (%) (Auto) 0.6, Sodium Level 137, Potassium Level 3.9, Chloride Level 103, Carbon Dioxide Level 25, Anion Gap 9, Blood Urea Nitrogen 65H, Creatinine 2.8H, Estimat Glomerular Filtration Rate 20.6, Glucose Level 105, Calcium Level 7.1L, Phosphorus Level 4.7, Magnesium Level 2.2 Height (Feet): 5 Height (Inches): 6.00 Weight (Pounds): 193 Objective General: WDWN female in NAD, A&O x 4 HEENT: Normocephalic cephalic atraumatic, pupils equal round reactive to light and accommodation, nares patent and no symmetrical, no tonsillar exudates, mucous membranes moist CV: Regular rate regular rhythm, no murmurs, rubs, or gallops Pulm: Lungs clear to auscultation bilaterally. No wheezes, rhonchi, or rales GI: Soft, nontender, nondistended, bowel sounds present Neuro: CN 2-12 intact bilaterally, no focal signs. Ext: No lower extremity edema bilaterally Skin: no rashes lesions or ulcers Msk: Joints symmetrical in upper extremity and lower extremity bilaterally, no joint swelling. Lymph: No lymphadenopathy in upper extremity and lower extremity Assessment/Plan Status: stable Assessment/Plan: Assessment/Plan: #NSTEMI Type 2 #NSVT #Hypertensive Urgency #Chest Pain - resolved Initial presentation with elevated BP and symptoms of dizziness that have resolved. - Continue to monitor on Tele - Troponin down trend - Restart HTN medications - lasix, metop, amlodipine, lisinopril - Isorbide started - Hydralazine increased - Discontinued heparin gtt, patient to continue on Plavix and Aspirin - EKG prn for chest pain - Continue aspirin, statin - Keep K >4 and Mag >2 - Cardiology consultation, appreciate recommendations. - 11/04 - Patient to have Lexiscan performed however Dr. Culp and Dr. Antoine have refused to perform test 2' to patient having asthma and elevated troponin. Patient has little to no wheezing at this time and troponin is trending down. - Unable to perform CTA Coronaries as radiology does not have this capability - 11/05 - Initiating transfer to outside hospital - CM to assist with transfer for cardiac catheterization. Pending [facility] - Awaiting bed placement and insurance authorization at [facility] Covmargarita d negative. #OVI on CKD Stage 3 - Cr uptrending - holding lasix for 3 days (restart on Sunday11/12/20) - Appreciate nephrology consult: Dr. Tejada - QUYEN muniz #HTN - Restart home BP meds - Increased hydralazine 100mg PO TID #COPD - duonebs q6 prn - previously on prednisone 20mg for 1mo, will taper to 10mg ending 11/09 and further taper - Spiriva #Hypothyroidism - Continue home levothyroxine #Muscle Spasm - restarted home soma Diet Regular FEN Full Code Time spent 32 minutes with 20 minutes spent with care coordination, review of labs, imaging and counseling. D/w nursing staff and consultants. CM to assist with transfer process to outside hospital for cardiac cath. Time of note does not reflect time of encounter Harley Hammond D.O. Nov 10, 2020 19:14
--- NOTE | 2020-11-10 19:17 | NUR ---
NURSE NOTES: Report given to Tr from [facility]. Pt in stable condition and ready to leave. Pt left with staff via gurney.
--- NOTE | 2020-11-11 20:00 | Discharge Summary ---
Discharge Summary Hospital Course Date of Admission Nov 01, 2020 at 22:52 Date of Discharge Nov 10, 2020 at 19:15 Admitting Diagnosis acs HPI Tyrone Brunson is a 65 year old female who was admitted on Nov 01, 2020 at 22:52 for Acute Coronary Syndrome Hospital Course Assessment/Plan: #NSTEMI Type 2 #NSVT #Hypertensive Urgency #Chest Pain - resolved Initial presentation with elevated BP and symptoms of dizziness that have resolved. - Continue to monitor on Tele - Troponin down trend - Restart HTN medications - lasix, metop, amlodipine, lisinopril - Isorbide started - Hydralazine increased - Discontinued heparin gtt, patient to continue on Plavix and Aspirin - EKG prn for chest pain - Continue aspirin, statin - Keep K >4 and Mag >2 - Cardiology consultation, appreciate recommendations. - 11/04 - Patient to have Lexiscan performed however Dr. Culp and Dr. Antoine have refused to perform test 2' to patient having asthma and elevated troponin. Patient has little to no wheezing at this time and troponin is trending down. - Unable to perform CTA Coronaries as radiology does not have this capability - 11/05 - Initiating transfer to outside hospital - to assist with transfer for cardiac catheterization. Pending [facility] - Awaiting bed placement and insurance authorization at [facility] Covid negative. #OVI on CKD Stage 3 - Cr uptrending - holding lasix for 3 days (restart on Sunday11/12/20) - Appreciate nephrology consult: Dr. Tejada - QUYEN muniz #HTN - Restart home BP meds - Increased hydralazine 100mg PO TID #COPD - duonebs q6 prn - previously on prednisone 20mg for 1mo, will taper to 10mg ending 11/09 and further taper - Spiriva #Hypothyroidism - Continue home levothyroxine #Muscle Spasm - restarted home soma Diet Regular FEN Full Code Time spent 32 minutes with 20 minutes spent with care coordination, review of labs, imaging and counseling. D/w nursing staff and consultants. CM to assist with transfer process to outside hospital for cardiac cath. Time of note does not reflect time of encounter Discharge Discharge Vital Signs Last Vital Signs Date Time Temp Pulse Resp B/P (MAP) Pulse Ox O2 Delivery O2 Flow Rate FiO2 11/10/20 16:00 53 11/10/20 16:00 96.8 20 122/64 (83) 94 11/10/20 09:00 Nasal Cannula 2.0 11/07/20 01:07 21 Discharge Disposition Patient was discharged to Harley Hammond D.O. Nov 11, 2020 19:59
== END 2020-11-10 19:15 | disposition short-term general hospital (02) | DRG 281 ==
LOC: EMR 14:41 → 2E 22:52 → EDBEDREQ 23:41 → 2E 11-04 15:24
DX: I21.A1 Myocardial infarction type 2 (principal); I47.2 Ventricular tachycardia; N17.9 Acute kidney failure, unspecified; I13.10 Hypertensive heart and chronic kidney disease without heart failure, with stage 1 through stage 4 chronic kidney disease, or unspecified chronic kidney disease; I16.0 Hypertensive urgency; N18.30 Chronic kidney disease, stage 3 unspecified; J44.9 Chronic obstructive pulmonary disease, unspecified; I25.10 Atherosclerotic heart disease of native coronary artery without angina pectoris; Z95.1 Presence of aortocoronary bypass graft; E03.9 Hypothyroidism, unspecified; R25.2 Cramp and spasm
CPT/HCPCS: 36415; 71045; 76770; 80048; 80053; 80061; 81003; 82575; 83735; 84100; 84484; 85007; 85025; 85610; 85730; 93005; 94640; 96374; 99285; U0002